=== PATIENT | male | born 1950 | race Caucasian/White ===

== ENCOUNTER 2022-01-14 18:56 | Emergency (ER) | payer MEDICARE, MEDICAID, SELFPAY ==
--- NOTE | ~2022-01-14 | CT_ITS ---
EXAMINATION: CT ABDOMEN AND PELVIS WITH CONTRAST CLINICAL INFORMATION: Generalized abdominal pain. COMPARISON: None TECHNIQUE: Multidetector volumetric images were obtained from the superior aspect of the liver through the pubic symphysis following administration 85 mL of Omnipaque 350 intravenous contrast. Sagittal and coronal reformatted images were obtained on the technologist's workstation. Oral contrast: No This CT examination was performed using dose optimization techniques as appropriate, variously including the following: *Automated exposure control *Adjustment of mA and/or kV according to patient size (this includes techniques or standardized protocols for targeted exams where dose is matched to indication/reason for exam; i.e. extremities or head) *Use of iterative reconstruction technique DLP: 1246 mGy-cm FINDINGS: LUNG BASES: Partial visualization is made of bibasilar posterior dependent peribronchial wall thickening in scattered fine and medium pulmonary reticular opacities. Findings are suspicious for aspiration pneumonitis. LIVER, GALLBLADDER, AND BILIARY TREE: The liver is normal in size, shape, and attenuation. No focal hepatic lesion or biliary ductal dilatation is present. Multiple hyperdense gallstones are present dependently within the gallbladder lumen. No biliary duct dilatation visualized. PANCREAS: Unremarkable. SPLEEN: Unremarkable. ADRENAL GLANDS: Unremarkable. KIDNEYS AND URETERS: A 2 mm diameter rounded calculus is present in the distal right ureter approximately 2 cm proximal to the right ureterovesicular junction. Heart right hydronephrosis and proximal right ureterectasis is present along with mild delayed right nephrogram enhancement and moderate right perinephric inflammatory changes. A 7 mm diameter rounded low-density (7 Hounsfield unit) benign-appearing simple cyst requiring no additional imaging follow-up is present in the inferior pole the right kidney. No additional left urolithiasis is noted bilaterally. No suspicious lesions of the left kidney are identified. BLADDER: No mural contour abnormalities or intraluminal calcifications. GASTROINTESTINAL TRACT: Moderate sigmoid diverticulosis. A cecal bascule is noted. Motion artifact partially obscures visualization of the cecum. The appendix is normal in appearance (series 3 image 49). No intestinal dilatation or mural thickening is noted. No free intraperitoneal fluid or gas collections are visualized. The stomach is normal in appearance. ABDOMINAL WALL: Periumbilical hernia containing omental fat measures 2 cm in diameter. LYMPH NODES: Normal. VASCULAR: Moderate scattered calcific atherosclerosis. PELVIC VISCERA: Normal size of the prostate. Normal appearance of the seminal vesicles. OSSEOUS STRUCTURES: Multilevel mild-moderate intervertebral disc space narrowing and vacuum phenomenon is noted. Dystrophic calcifications are noted in the L4-L5 intervertebral disc. CT/CT abdomen pelvis w IV con IMPRESSION: 1. Single 2 mm obstructing calculus within the distal right ureter approximately 2 cm proximal to the right ureterovesicular junction. Associated moderate right hydronephrosis and proximal right ureterectasis. No additional urolithiasis. 2. Cholelithiasis. 3. Moderate sigmoid diverticulosis. No evidence of acute diverticulitis. 4. Normal appendix. 5. Partial visualization of bibasilar posterior dependent peribronchial wall thickening and reticular opacities suspicious for aspiration pneumonitis.
--- NOTE | ~2022-01-14 | XR_ITS ---
EXAMINATION: XR CHEST CLINICAL INFORMATION: Cough and shortness of breath COMPARISON: 01/14/2022 TECHNIQUE: Frontal view of the chest was obtained. FINDINGS: The heart is mildly enlarged. The lungs are hypoinflated. Some increased reticular nodular markings are seen in both lungs. Atelectasis/infiltrate is present at the left lung base. Some probable pleural calcification is seen at the left apex. XR/XR chest 1V IMPRESSION: Mild cardiomegaly with increased reticular nodular markings. Left basilar atelectasis/infiltrate
[2022-01-14 19:57] VITALS: BP 168/97; PULSE 94; RESP 17; TEMP 36.8; O2SAT 89; BMI 32.3
--- NOTE | 2022-01-14 20:01 | PC.NURSE ---
hx CVA with baseline aphasia
--- NOTE | 2022-01-14 20:14 | PC.NURSE ---
RA saturation 87%, 2l nc applied
[2022-01-14 20:18] LABS: MANUAL DIFF FLAG NO
--- NOTE | 2022-01-14 20:19 | ECG_ITS ---
Test Reason : ABD PAIN Blood Pressure : / mmHG Vent. Rate : 103 BPM Atrial Rate : 103 BPM P-R Int : 176 ms QRS Dur : 078 ms QT Int : 362 ms P-R-T Axes : 046 -05 -01 degrees QTc Int : 474 ms Sinus tachycardia RSR' or QR pattern in V1 suggests right ventricular conduction delay Nonspecific ST abnormality Abnormal ECG No previous ECGs available Referred By: Akhil Kumar Electronically Signed By:ROSALINDA PUGA MD
[2022-01-14 20:24] LABS: Basophils Percent Auto 0.3 % (0-2); Eosinophils Percent Auto 0.4 % (0-4); Hematocrit 51.9 % (42.0-52.0); Hemoglobin 16.5 g/dl (14.0-18.0); Imm Gran Abs Auto 0.03 X10*3/uL (0.00-0.03); Imm Gran Pct Auto 0.4 % (0.0-0.4); Lymphocytes Absolute Auto 0.8 X10*3/uL (1.2-4.9); Lymphocytes Percent Auto 9.5 % (20-40); Mean Corpuscular HGB Conc 31.8 g/dl (31.0-36.0); Mean Corpuscular Hemoglobin 27.1 pg (27.0-33.0); Mean Corpuscular Volume 85.2 fL (80.0-98.0); Mean Platelet Volume 9.9 fL (9.4-12.4); Monocytes Absolute Auto 0.4 X10*3/uL (0.1-1.2); Monocytes Percent Auto 4.4 % (2-11); Neutrophils Absolute Auto 6.7 x10*3/uL (2.0-8.3); Platelet Count 231 X10*3/uL (160-400); Red Blood Count 6.09 X10*6/uL (4.60-5.80); Red Cell Distribution Width 17.7 % (11.0-16.0); White Blood Count 7.9 X10*3/uL (4.8-10.8)
[2022-01-14 20:37] LABS: Alanine Aminotransferase 16 U/L (0-40); Albumin Level 4.7 g/dL (3.5-5.0); Alkaline Phosphatase 167 U/L (39-117); Anion Gap 16 (12-20); Aspartate Amino Transferase 23 U/L (5-37); Bilirubin Total 0.7 mg/dL (0.0-1.0); Blood Urea Nitrogen 13 mg/dL (9-16); Calcium 9.6 mg/dL (8.4-10.2); Carbon Dioxide 29 mmol/L (22-29); Chloride 104 mmol/L (96-108); Creatinine Clr Calc Pharmacy 70.7; Estimated Glomerular Filt Rate > 60; Glucose Random 131 mg/dL (60-115); Lipase 33 U/L (8-78); Potassium 3.6 mmol/L (3.3-5.1); Sodium 145 mmol/L (135-145); Total Protein 8.3 g/dL (6.5-8.0)
--- NOTE | 2022-01-14 21:13 | ED_ITS ---
HPI - Abdominal Pain General Chief Complaint: Abdominal Pain Stated Complaint: nausa R lower quadrant pain Time Seen by Provider: 01/14/22 19:22 Source: EMS, RN notes reviewed and old records reviewed Mode of arrival: EMS History of Present Illness HPI narrative: 71-year-old male presenting from a local [facility] facility with lower abdominal pain and nausea which began several hours ago. Pain is moderate, and has been constant since onset. The patient is unable to provide significant additional history at this time. There are no known exacerbating or relieving factors. MD elicited complaint: abdominal pain Onset (ago): day(s) (1) Pain Consistency: constant Location: suprapubic Severity: moderate Related Data Allergies Allergy/AdvReac Type Severity Reaction Status Date / Time No Known Allergies Allergy Unverified 11/06/19 17:49 [No Known Allergies*] Review of Systems Review of Systems Review of systems is difficult because the patient cannot speak secondary to previous stroke Constitutional: Denies chills, Denies fever(s) and Denies headache(s) Eyes: Denies blurry vision and Denies diplopia Denies headache(s) and Denies sore throat Cardiovascular: Denies rapid heart rate and Denies dyspnea Respiratory: Reports no additional respiratory complaints, Denies cough and Denies dyspnea Gastrointestinal: Reports no additional gastrointestinal complaints, Reports abdominal pain, Denies diarrhea, Denies nausea and Denies vomiting Genitourinary: Denies difficulty urinating Musculoskeletal: Reports no additional musculoskeletal complaints Skin/Breast: Reports system reviewed and no additional complaints, except as docu Reports system reviewed and no additional complaints, except as documented, Denies Abnormal speech present, Denies headache(s) and Denies Sensory deficit (Neuro) Psychiatric: Reports no additional psychiatric complaints PMFSH Past Medical History Source: unable to obtain Social History Social History Advance Directives: No Advance Directives Information Provided: No Physical Exam ED Vital Signs: Vital Signs - 24 hr 01/14/22 19:57 01/14/22 22:00 01/15/22 00:00 Temperature 98.2 F 98.3 F 98.4 F Pulse Rate 94 107 H 116 H Respiratory Rate 17 16 16 Blood Pressure 168/97 H 167/113 H 123/78 Pulse Oximetry 89 L 98 96 Oxygen Delivery Method Nasal Cannula Nasal Cannula Oxygen Flow Rate 2 BMI result Body Mass Index 32.3 Vital signs reviewed and are normal with exception of O2 sat low at 89%. The patient's O2 sat improved with oxygen and then was normal without oxygen. Const General: cooperative, healthy appearing and comfortable HENMT Head: Yes normal to inspection Ears: external ears normal General nose exam: Normal external nose present Face and sinus: Yes normal facial exam Mouth: Normal oral and palatal mucosa present Neck Neck: Yes normal visual inspection and Yes full ROM Resp Effort & Inspection: normal respiratory effort, normal respiratory pattern and no cough Auscultation: clear to auscultation bilaterally Cardio Rate: regular rate Rhythm: regular rhythm GI Inspection: Yes normal to inspection and No distended Palpation (GI): not soft and nontender Back/Spine/Pelvis Cervical Spine: normal cervical lordosis and cervical ROM normal Skin General skin exam: no rashes or lesions noted, no jaundice and no pallor Neuro General: CN's II-XI intact bilaterally Cognition (Neuro): normal cognition Speech: No Abnormal speech present Motor exam (neuro): 5/5 motor strength present throughout Sensory Exam: No Sensory deficit (Neuro) Deep tendon reflexes (DTR's): Rt Biceps (C5, C6): 2+, Left biceps reflex intensity grade: 2+, Right patellar reflex intensity grade: 2+ and Left patellar reflex intensity grade: 2+ Medications Administered Discontinued Medications Generic Name Dose Route Start Last Admin Trade Name Freq PRN Reason Stop Dose Admin Iohexol 100 ml 01/14/22 21:18 01/14/22 21:19 Iohexol 350 Mg/Ml 100 Ml Infus..Btl IV 01/14/22 21:19 85 ml ONCE ONE Administration Ketorolac Tromethamine 15 mg 01/14/22 22:50 01/14/22 23:50 Ketorolac Tromethamine 15 Mg/Ml Vial IM 01/14/22 22:51 15 mg ONCE ONE Administration MDM - Abdominal Pain MDM Narrative Medical decision making narrative: 71-year-old male presents emergency department tonight complaining of right lower quadrant abdominal pain. CT scan revealed a stone as documented below. The patient was re-evaluated over the course of several hours, he did receive IV Toradol in the emergency department. Upon re-evaluation at 1:30 a.m., the patient is comfortable, with no complaints at this time. I did explain to him that he had a kidney stone and that he would be discharged home. The patient is in agreement all questions were answered. Medical Records Attestation: I reviewed the patient's medical records. Lab Data Attestation: I reviewed the patient's lab results. Lab results narrative: Laboratory studies normal including negative COVID. Urinalysis was not obtained Result diagrams: 01/14/22 20:13 01/14/22 20:13 Labs: Lab Results 01/14/22 01/14/22 01/14/22 Range/Units 20:13 20:13 20:13 WBC 7.9 (4.8-10.8) X10*3/uL RBC 6.09 H (4.60-5.80) X10*6/uL Hgb 16.5 (14.0-18.0) g/dl Hct 51.9 (42.0-52.0) % MCV 85.2 (80.0-98.0) fL MCH 27.1 (27.0-33.0) pg MCHC 31.8 (31.0-36.0) g/dl RDW 17.7 H (11.0-16.0) % Plt Count 231 (160-400) X10*3/uL MPV 9.9 (9.4-12.4) fL Immature Gran % (Auto) 0.4 (0.0-0.4) % Neut % (Auto) 85.0 H (45-73) % Lymph % (Auto) 9.5 L (20-40) % [place] % (Auto) 4.4 (2-11) % Eos % (Auto) 0.4 (0-4) % Baso % (Auto) 0.3 (0-2) % Lymph # (Auto) 0.8 L (1.2-4.9) X10*3/uL [place] # (Auto) 0.4 (0.1-1.2) X10*3/uL Eos # (Auto) 0.0 (0.0-0.4) X10*3/uL Baso # (Auto) 0.0 (0.0-0.2) X10*3/uL Abs Immat Gran (auto) 0.03 (0.00-0.03) X10*3/uL Absolute Neuts (auto) 6.7 (2.0-8.3) x10*3/uL Absolute Nucleated RBC 0.000 (0.0-0.012) X10*3/uL Nucleated RBC % (auto) 0.0 (0.0-0.2) /100WBC Sodium 145 (135-145) mmol/L Potassium 3.6 (3.3-5.1) mmol/L Chloride 104 (96-108) mmol/L Carbon Dioxide 29 (22-29) mmol/L Anion Gap 16 (12-20) BUN 13 (9-16) mg/dL Creatinine 1.13 (0.5-1.4) mg/dL Estim Creat Clear Calc 70.7 Estimated GFR > 60 Random Glucose 131 H (60-115) mg/dL Calcium 9.6 (8.4-10.2) mg/dL Total Bilirubin 0.7 (0.0-1.0) mg/dL AST 23 (5-37) U/L ALT 16 (0-40) U/L Alkaline Phosphatase 167 H (39-117) U/L Total Protein 8.3 H (6.5-8.0) g/dL Albumin 4.7 (3.5-5.0) g/dL Lipase 33 (8-78) U/L Influenza Type A (PCR) NEGATIVE (Negative) Influenza Type B (PCR) NEGATIVE (Negative) RSV RNA Qual (PCR) NEGATIVE (Negative) SARS-CoV-2 RNA (RT-PCR) NEGATIVE (Negative) Imaging Data CT scan - abdomen: Radiologist's impression: IMPRESSION: 1.? Single 2 mm obstructing calculus within the distal right ureter approximately 2 cm proximal to the right ureterovesicular junction. Associated moderate right hydronephrosis and proximal right ureterectasis. No additional urolithiasis. 2.? Cholelithiasis. 3.? Moderate sigmoid diverticulosis. No evidence of acute diverticulitis. 4.? Normal appendix. 5.? Partial visualization of bibasilar posterior dependent peribronchial wall thickening and reticular opacities suspicious for aspiration pneumonitis Discharge Plan Discharge Clinical Impression: Calculus of kidney Patient Disposition: Home, Self-Care Instructions: Kidney Stones (ED)
[2022-01-14 21:17] LABS: Influenza A PCR NEGATIVE (Negative); Influenza B PCR NEGATIVE (Negative); Resp Syncy Virus RNA Qual PCR NEGATIVE (Negative); SARS COV2 PCR INHOUSE NEGATIVE (Negative)
[2022-01-14] MEDS: iohexoL 350 MG/ML 100 ML INFUS..BTL IV (21:19)
[2022-01-14 22:00] VITALS: BP 167/113; PULSE 107; RESP 16; TEMP 36.8; O2SAT 98
[2022-01-14] MEDS: Ketorolac Tromethamine 15 MG/ML VIAL IM (23:50)
[2022-01-15] VITALS: BP 123/78; PULSE 116; RESP 16; TEMP 36.9; O2SAT 96
[2022-01-15 02:27] VITALS: BP 126/95; PULSE 102; RESP 16; TEMP 36.6; O2SAT 95
--- NOTE | 2022-01-15 02:35 | PC.NURSE ---
Patient is provided with discharge paperwork and instruction, including education about kidney stones. EMS booked to bring patient back to SNF. Awaiting transport back to facility.
--- NOTE | 2022-01-15 02:55 | PC.NURSE ---
Nuha called at 0240 for a Bls transfer back to [facility] spoke with Flaca she is sending a truck to transport patient ETA within the hour.Rn aware
== END 2022-01-15 03:36 | disposition home or self-care (01) ==
PROVIDERS: Emergency Provider Emergency Medicine; PCP Family Medicine
DX: N13.2 Hydronephrosis with renal and ureteral calculous obstruction (principal); R10.31 Right lower quadrant pain; K80.20 Calculus of gallbladder without cholecystitis without obstruction; K57.30 Diverticulosis of large intestine without perforation or abscess without bleeding; Z20.822 Contact with and (suspected) exposure to COVID-19
CPT/HCPCS: 0241U; 36415; 71045; 74177; 80053; 83690; 85025; 93005; 96372; 99284; J1885; Q9967

== ENCOUNTER 2022-03-17 12:06 | Emergency (ER) | payer MEDICARE, MEDICAID, SELFPAY ==
--- NOTE | ~2022-03-17 | CT_ITS ---
EXAMINATION: CT ABDOMEN AND PELVIS WITHOUT CONTRAST CLINICAL INFORMATION: Pain of left lower quadrant. COMPARISON: None TECHNIQUE: Multidetector volumetric imaging was performed from the superior aspect of the liver through the pubic symphysis. Sagittal and coronal reformatted images were obtained on the technologist's workstation. This CT examination was performed using dose optimization techniques as appropriate, variously including the following: *Automated exposure control *Adjustment of mA and/or kV according to patient size (this includes techniques or standardized protocols for targeted exams where dose is matched to indication/reason for exam; i.e. extremities or head) *Use of iterative reconstruction technique DLP: 835 mGy-cm FINDINGS: LUNG BASES: Again observed is chronic thickening of bronchial morales and reticular and mild groundglass opacities of the visualized lower lobes. No pleural effusion. LIVER: Diffuse hepatic steatosis. GALLBLADDER AND BILIARY TREE: Gallbladder has multiple small calcified stones. No gallbladder wall thickening or pericholecystic fluid. No dilated bile ducts. PANCREAS: No edema, pancreatic ductal dilatation or mass. SPLEEN: Normal. ADRENAL GLANDS: Normal. KIDNEYS AND URETERS: Kidneys are normal in size. 0.2 cm calyceal stone of the upper pole of the left kidney. No hydronephrosis. 1.2 cm simple cortical cyst of the posterior lower pole of the right kidney is unchanged. No renal imaging follow-up is recommended for simple cysts. The ureters are unremarkable. BLADDER: Normal. No calculi or wall thickening. BOWEL AND PERITONEUM: There are a few metallic clips along the anterior wall of the gastric body. No dilated bowel loops. The appendix is normal. There are diverticula of the sigmoid colon without evidence of diverticulitis. No evidence of bowel wall thickening, mesenteric fat stranding or free fluid. No pneumoperitoneum. ABDOMINAL WALL: Chronic diastases of rectus abdominis muscles and small fat-containing umbilical hernia. VASCULATURE: Atherosclerotic calcification of the abdominal aorta and iliac arteries without aneurysm. LYMPH NODES: No pathologic sized lymph nodes in the abdomen or pelvis. No inguinal lymphadenopathy. PELVIC VISCERA: Prostate gland is unremarkable. No pelvic free fluid. MUSCULOSKELETAL: Chronic partial osseous fusion between L3 and L4 vertebral bodies. No acute abnormalities in the degenerated lumbar spine. Bones appear to be diffusely osteoporotic. 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 Chronic atrophy, partial fatty replacement of paraspinal, gluteus and thigh muscles. CT/CT abdomen pelvis wo IV con IMPRESSION: * No specific source of left lower quadrant pain is identified. No acute inflammatory change or obstruction along the gastrointestinal tract. Diverticula of the sigmoid colon without diverticulitis. * Cholelithiasis without cholecystitis. * Diffuse hepatic steatosis. * Chronic symmetric ankylosis of sacroiliac joints. Correlate for any history of HLA B27 associated spondyloarthropathy * There are redemonstrated findings of bronchial wall thickening and hazy, reticular opacities in lower lobes. Findings could be a manifestation of bronchitis, pneumonitis, possible aspiration.
--- NOTE | ~2022-03-17 | US_ITS ---
EXAMINATION: US ABDOMEN LIMITED CLINICAL INFORMATION: Right upper quadrant pain.. COMPARISON: CT scan abdomen pelvis 03/17/2022 TECHNIQUE: Real-time imaging of the right upper quadrant abdominal viscera. Color Doppler exam was used. FINDINGS: PANCREAS: Obscured by bowel gas LIVER: Mild increased echogenicity of the liver parenchyma suggesting fatty change. The liver is normal in size. The liver contour is normal. No focal hepatic lesion. There is no intrahepatic biliary duct dilatation seen. GALLBLADDER: Small gallstones within the gallbladder. No gallbladder wall thickening or pericholecystic fluid. Negative ultrasound Driscoll's sign. COMMON BILE DUCT: Normal in caliber measuring 0.3 cm in diameter. RIGHT KIDNEY: Normal. No hydronephrosis. No renal calculi or focal parenchymal lesions. The kidney measures 8.9 cm in maximum dimension. FREE FLUID: None. US/US abdomen limited IMPRESSION: Cholelithiasis. No acute change of gallbladder wall. No bile duct dilatation.
--- NOTE | ~2022-03-17 | CT_ITS ---
EXAMINATION: CT ANGIOGRAM OF THE CHEST WITH AND WITHOUT CONTRAST (CT PULMONARY ANGIOGRAM FOR PE) CLINICAL INFORMATION: Reason for Exam hypoxia tachycardia COMPARISON: None TECHNIQUE: Prior to contrast administration, noncontrast localization images were obtained. Subsequently, multidetector volumetric imaging was performed from the thoracic inlet to below the diaphragms following the administration of 65 mL Omnipaque 350 intravenous contrast. No contrast reaction reported Sagittal, coronal, and MIP oblique sagittal reformatted images were obtained on the CT workstation, uploaded to PACS, and reviewed. This CT examination was performed using dose optimization techniques as appropriate, variously including the following: *Automated exposure control *Adjustment of mA and/or kV according to patient size (this includes techniques or standardized protocols for targeted exams where dose is matched to indication/reason for exam; i.e. extremities or head) *Use of iterative reconstruction technique Total exam dose-length product 448 mGy-cm FINDINGS: QUALITY OF STUDY/CONTRAST BOLUS: Suboptimal. PULMONARY ARTERIES: No central pulmonary embolus. Assessment is largely nondiagnostic for laboratory detecting segmental pulmonary emboli rarely due to extensive respiratory motion artifact. THORACIC AORTA: There is a approximately 1.6 x 1.4 cm contrast filled outpouching projecting inferiorly from the proximal descending thoracic aorta in the region of the ductus arteriosus consistent with a small focal aneurysm presumably secondary to ulcerative plaque. No surrounding inflammatory change. Thoracic aorta is otherwise normal in caliber with mild calcifications. LUNG: Prominent respiratory motion artifact. Mild hazy opacities in the dependent lower lobes and lingula left greater than right, nonspecific and similar to earlier CT abdomen pelvis. No suspicious appearing pulmonary nodule/mass identified For motion artifact. There does appear to be a small calcified granuloma in the right lower lobe. Central airways appear patent. Small amount of foamy secretions or aspirated debris in the lower trachea and proximal mainstem bronchi. PLEURA: No pleural effusion or pneumothorax. MEDIASTINUM: No cardiomegaly or pericardial effusion. Enlarged right hilar lymph node measuring 3 x 1.4 cm in size. Mildly enlarged subcarinal lymph nodes measuring 1 cm in short axis dimension. Multiple additional prominent subcentimeter short axis dimension mediastinal and left hilar lymph nodes. No evidence of septal bowing or right heart strain. CORONARY ARTERY CALCIFICATION: Present focally involving the LAD. CHEST WALL/AXILLA: No axillary or internal mammary lymphadenopathy. OSSEOUS STRUCTURES: No acute fracture or suspicious osseous lesion. Mild thoracic spondylosis. UPPER ABDOMEN: Mild hepatic hypoattenuation suggesting mild steatosis. Calcified dependent gallstones layering in the gallbladder. Couple surgical clips in the body the stomach. Visualized upper abdominal viscera otherwise unremarkable. No reflux of contrast into the hepatic veins to suggest elevated right heart pressures. CT/CT angio chest PE protocol IMPRESSION: 1. No central pulmonary embolus. Assessment for reliably detecting segmental pulmonary emboli is essentially nondiagnostic on this study due to extensive respiratory motion artifact. 2. 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 3. Mild dependent groundglass opacities in the lung bases left more so than right. Findings may represent some combination of atelectasis or pneumonitis. No airspace consolidation or effusions. 4. Mild mediastinal and right hilar lymphadenopathy, etiology uncertain. Cannot entirely exclude metastasis from an known primary or lymphoproliferative process. 5. Additional findings as described. VTE: indeterminate
[2022-03-17 12:15] VITALS: BP 126/60; BP 133/85; PULSE 108; PULSE 109; RESP 16; TEMP 37.7; O2SAT 93; O2SAT 94; BMI 31.5
[2022-03-17 14:08] LABS: MANUAL DIFF FLAG NO
[2022-03-17 14:09] LABS: Basophils Percent Auto 0.4 % (0-2); Eosinophils Absolute Auto 0.1 X10*3/uL (0.0-0.4); Eosinophils Percent Auto 2.3 % (0-4); Hematocrit 43.5 % (42.0-52.0); Hemoglobin 13.8 g/dl (14.0-18.0); Imm Gran Abs Auto 0.01 X10*3/uL (0.00-0.03); Imm Gran Pct Auto 0.2 % (0.0-0.4); Lymphocytes Absolute Auto 0.6 X10*3/uL (1.2-4.9); Lymphocytes Percent Auto 13.1 % (20-40); Mean Corpuscular HGB Conc 31.7 g/dl (31.0-36.0); Mean Corpuscular Hemoglobin 27.5 pg (27.0-33.0); Mean Corpuscular Volume 86.7 fL (80.0-98.0); Mean Platelet Volume 9.8 fL (9.4-12.4); Monocytes Absolute Auto 0.4 X10*3/uL (0.1-1.2); Monocytes Percent Auto 7.4 % (2-11); Neutrophils Absolute Auto 3.6 x10*3/uL (2.0-8.3); Neutrophils Percent Auto 76.6 % (45-73); Platelet Count 187 X10*3/uL (160-400); Red Blood Count 5.02 X10*6/uL (4.60-5.80); Red Cell Distribution Width 17.8 % (11.0-16.0); White Blood Count 4.7 X10*3/uL (4.8-10.8)
--- NOTE | 2022-03-17 14:16 | ED.ABDPAIN ---
HPI - Abdominal Pain General Chief Complaint: Abdominal Pain Stated Complaint: Low abd pain per EMS Time Seen by Provider: 03/17/22 12:09 Source: patient and EMS Mode of arrival: EMS History of Present Illness HPI narrative: 72-year-old male with prior CVA is brought in by EMS from the facility with reported complaints of lower abdominal pain since last night and has a history of kidney stones. Patient is primarily nonverbal but understands all questions and denies any shortness of breath or chest pain, denies any nausea/vomiting. Related Data Allergies Allergy/AdvReac Type Severity Reaction Status Date / Time No Known Allergies Allergy Unverified 11/06/19 17:49 [No Known Allergies*] Review of Systems Review of Systems Pertinent positives and negatives as stated in HPI PMFSH Past Medical History Source: nursing notes reviewed Social History Social History Smoked in Last 30 Days: No Use of substances other than those prescribed or required for medical reasons: No Advance Directives: Yes Advance Directives on File: Yes Advance Directives Date on File: 01/16/22 Physical Exam ED Vital Signs: Vital Signs - 24 hr 03/17/22 12:15 03/17/22 14:30 03/17/22 17:52 Temperature 99.9 F 99.7 F 99.9 F Pulse Rate 109 H 104 H 111 H Respiratory Rate 16 23 H 16 Blood Pressure 133/85 147/92 H 148/93 H Pulse Oximetry 94 92 91 L Oxygen Delivery Method Room Air Room Air BMI result Body Mass Index 31.5 VITAL SIGNS: Reviewed. GENERAL: Chronically ill, contracted, in no acute distress. HEAD: Normocephalic/atraumatic EYES: PERRLA, EOMI EARS: Ext canals without abnormality OROPHARYNX: no oral lesions noted, posterior pharynx clear LUNGS: Decreased bibasilar without tachypnea. No adventitious sounds or accessory muscle use. SpO2<92> CARDIOVASCULAR: Regular rate and rhythm without noted murmurs, no JVD or lower extremity edema. ABDOMEN: Soft, tenderness noted in lower abdomen, non-distended with bowel sounds. MUSCULOSKELETAL: No tenderness, deformities, or effusions noted on gross inspection. EXTREMITIES: No cyanosis, clubbing or edema. SKIN: Inspection of the skin reveals no rashes NEUROLOGIC: Alert and otherwise residual deficits consistent with underlying CVA, contractions of lower extremity and right upper extremity Medical Decision Making Medical Decision Making [facility] Narrative: 72-year-old male who presents and will rule out intra-abdominal or urinary problems. On review of all investigations there is no evidence to suggest acute infection, anemia, obstruction, diverticulitis, cholecystitis. 1844: Nursing documented an oxygenation of 91% and patient remains tachycardic, there is not a clear etiology as patient denies any shortness of breath. On re-evaluation patient has a low-grade fever and will proceed with CT of the chest, right upper quadrant ultrasound as this is the imaging study to best identify cholecystitis as patient still with complaint of abdominal discomfort, will give patient 1 L of IV fluids and placed on supplemental oxygen. US RUQ CT angio Chest Nasal Cannula SARS/COVID/RSV/Influenz Differential Diagnosis Differential Diagnoses: The differential diagnosis associated with the presentation includes Please see the discussion above Lab Data [facility] Lab Attestation statement: I reviewed the patient's lab results. Please see the discussion above 03/17/22 14:03 03/17/22 14:03 Labs: Lab Results 03/17/22 03/17/22 03/17/22 Range/Units 14:01 14:03 14:03 WBC 4.7 L (4.8-10.8) X10*3/uL RBC 5.02 (4.60-5.80) X10*6/uL Hgb 13.8 L (14.0-18.0) g/dl Hct 43.5 (42.0-52.0) % MCV 86.7 (80.0-98.0) fL MCH 27.5 (27.0-33.0) pg MCHC 31.7 (31.0-36.0) g/dl RDW 17.8 H (11.0-16.0) % Plt Count 187 (160-400) X10*3/uL MPV 9.8 (9.4-12.4) fL Immature Gran % (Auto) 0.2 (0.0-0.4) % Neut % (Auto) 76.6 H (45-73) % Lymph % (Auto) 13.1 L (20-40) % [place] % (Auto) 7.4 (2-11) % Eos % (Auto) 2.3 (0-4) % Baso % (Auto) 0.4 (0-2) % Lymph # (Auto) 0.6 L (1.2-4.9) X10*3/uL [place] # (Auto) 0.4 (0.1-1.2) X10*3/uL Eos # (Auto) 0.1 (0.0-0.4) X10*3/uL Baso # (Auto) 0.0 (0.0-0.2) X10*3/uL Abs Immat Gran (auto) 0.01 (0.00-0.03) X10*3/uL Absolute Neuts (auto) 3.6 (2.0-8.3) x10*3/uL Absolute Nucleated RBC 0.000 (0.0-0.012) X10*3/uL Nucleated RBC % (auto) 0.0 (0.0-0.2) /100WBC PT (10.0-13.1) SEC INR (0.9-1.1) Sodium 140 (135-145) mmol/L Potassium 3.9 (3.3-5.1) mmol/L Chloride 103 (96-108) mmol/L Carbon Dioxide 28 (22-29) mmol/L Anion Gap 13 (12-20) BUN 9 (9-16) mg/dL Creatinine 0.92 (0.5-1.4) mg/dL Estim Creat Clear Calc 72.1 Estimated GFR > 60 Random Glucose 106 (60-115) mg/dL Calcium 8.8 D (8.4-10.2) mg/dL Total Bilirubin 1.0 (0.0-1.0) mg/dL AST 18 (5-37) U/L ALT 11 (0-40) U/L Alkaline Phosphatase 132 H (39-117) U/L Total Protein 6.8 (6.5-8.0) g/dL Albumin 3.8 (3.5-5.0) g/dL Urine Color Urine Appearance Urine pH (5.0-9.0) Ur Specific [place] (1.005-1.025) Urine Protein (Neg-Trace) mg/dL Urine Glucose (UA) (Negative) mg/dL Urine Ketones (Negative) mg/dL Urine Blood (Negative) Urine Nitrite (Negative) Ur Leukocyte Esterase (Negative) COVID-19 ([facility]) Negative (Negative) COVID-19 Clin Com See Note 03/17/22 03/17/22 Range/Units 14:03 17:38 WBC (4.8-10.8) X10*3/uL RBC (4.60-5.80) X10*6/uL Hgb (14.0-18.0) g/dl Hct (42.0-52.0) % MCV (80.0-98.0) fL MCH (27.0-33.0) pg MCHC (31.0-36.0) g/dl RDW (11.0-16.0) % Plt Count (160-400) X10*3/uL MPV (9.4-12.4) fL Immature Gran % (Auto) (0.0-0.4) % Neut % (Auto) (45-73) % Lymph % (Auto) (20-40) % [place] % (Auto) (2-11) % Eos % (Auto) (0-4) % Baso % (Auto) (0-2) % Lymph # (Auto) (1.2-4.9) X10*3/uL [place] # (Auto) (0.1-1.2) X10*3/uL Eos # (Auto) (0.0-0.4) X10*3/uL Baso # (Auto) (0.0-0.2) X10*3/uL Abs Immat Gran (auto) (0.00-0.03) X10*3/uL Absolute Neuts (auto) (2.0-8.3) x10*3/uL Absolute Nucleated RBC (0.0-0.012) X10*3/uL Nucleated RBC % (auto) (0.0-0.2) /100WBC PT 13.5 H (10.0-13.1) SEC INR 1.2 H (0.9-1.1) Sodium (135-145) mmol/L Potassium (3.3-5.1) mmol/L Chloride (96-108) mmol/L Carbon Dioxide (22-29) mmol/L Anion Gap (12-20) BUN (9-16) mg/dL Creatinine (0.5-1.4) mg/dL Estim Creat Clear Calc Estimated GFR Random Glucose (60-115) mg/dL Calcium (8.4-10.2) mg/dL Total Bilirubin (0.0-1.0) mg/dL AST (5-37) U/L ALT (0-40) U/L Alkaline Phosphatase (39-117) U/L Total Protein (6.5-8.0) g/dL Albumin (3.5-5.0) g/dL Urine Color Yellow Urine Appearance Clear Urine pH 8.5 (5.0-9.0) Ur Specific [place] 1.015 (1.005-1.025) Urine Protein Negative (Neg-Trace) mg/dL Urine Glucose (UA) Negative (Negative) mg/dL Urine Ketones Trace (Negative) mg/dL Urine Blood Negative (Negative) Urine Nitrite Negative (Negative) Ur Leukocyte Esterase Negative (Negative) COVID-19 ([facility]) (Negative) COVID-19 Clin Com Radiology Impression Radiologist Impression: My interpretation is in agreement with radiology's impression of the imaging study. External Record Review External record reviewed: Outpatient record and Prior outpatient labs Chronic Conditions Prior CVA Critical Care Time Critical Care Time Critical Care Time: Yes Total Critical Care Time: 45 Attestation: I personally attest to this time spent taking care of the patient. Discharge Plan Discharge Clinical Impression: Abdominal pain, Hypoxia Patient Disposition: Still a Patient
[2022-03-17 14:22] LABS: COVID-19 Test Negative (Negative); IDNOW Serial# BCCEAD1C
[2022-03-17 14:26] LABS: INTERNATIONAL NORM RATIO 1.2 (0.9-1.1); Prothrombin Time 13.5 SEC (10.0-13.1)
[2022-03-17 14:30] VITALS: BP 147/92; PULSE 104; RESP 23; TEMP 37.6; O2SAT 92
[2022-03-17 14:39] LABS: Alanine Aminotransferase 11 U/L (0-40); Albumin Level 3.8 g/dL (3.5-5.0); Alkaline Phosphatase 132 U/L (39-117); Anion Gap 13 (12-20); Aspartate Amino Transferase 18 U/L (5-37); Blood Urea Nitrogen 9 mg/dL (9-16); Calcium 8.8 mg/dL (8.4-10.2); Carbon Dioxide 28 mmol/L (22-29); Chloride 103 mmol/L (96-108); Creatinine Clr Calc Pharmacy 72.1; Estimated Glomerular Filt Rate > 60; Glucose Random 106 mg/dL (60-115); Potassium 3.9 mmol/L (3.3-5.1); Sodium 140 mmol/L (135-145); Total Protein 6.8 g/dL (6.5-8.0)
--- NOTE | 2022-03-17 17:13 | PC.NURSE ---
pt is unable to urinate to get a urine sample after urinal placed by this RN. offered a pitcher of water and he isn t really interested in drinking much.
[2022-03-17 17:52] VITALS: BP 148/93; PULSE 111; RESP 16; TEMP 37.7; O2SAT 91
[2022-03-17 17:52] LABS: Appearance Urine Clear; Color Urine Yellow; Glucose Urine UA Negative (Negative); Leukocyte Esterase Urine Negative (Negative); Nitrite Urine Negative (Negative); PH 8.5 (5.0-9.0); Specific Gravity - Urine 1.015 (1.005-1.025); Urine Blood Negative (Negative); Urine Ketones Trace mg/dL (Negative); Urine Protein Negative (Neg-Trace)
[2022-03-17] MEDS: 0.9 % Sodium Chloride 1,000 ML 999 ML IV (19:12)
--- NOTE | 2022-03-17 19:15 | PC.NURSE ---
This sql report writer asumed care of this PT at 1900. PT able to understand answer yes or no questions. Denies any pain. IV line established. Blood work drawn and sent to lab.
[2022-03-17 19:25] VITALS: BP 150/93; PULSE 108; RESP 18; TEMP 36.8; O2SAT 92
[2022-03-17 19:58] LABS: Influenza A PCR NEGATIVE (Negative); Influenza B PCR NEGATIVE (Negative); Resp Syncy Virus RNA Qual PCR NEGATIVE (Negative); SARS COV2 PCR INHOUSE NEGATIVE (Negative)
[2022-03-17 20:23] LABS: Lactic Acid 0.9 mmol/L (0.5-2.0)
[2022-03-17 22:00] VITALS: BP 148/96; PULSE 115; RESP 20; TEMP 36.6; O2SAT 93
--- NOTE | 2022-03-17 22:31 | PC.NURSE ---
FL to RN report given to Patrice at [facility]. PT updated on D/C plan.
== END 2022-03-17 23:01 | disposition home or self-care (01) ==
PROVIDERS: Nurse Practitioner Family; Student in an Organized Health Care Education/Training Program; Emergency Provider Emergency Medicine; PCP Family Medicine
DX: R10.30 Lower abdominal pain, unspecified (principal); R09.02 Hypoxemia; R50.9 Fever, unspecified; R00.0 Tachycardia, unspecified; Z20.822 Contact with and (suspected) exposure to COVID-19; Z20.828 Contact with and (suspected) exposure to other viral communicable diseases; Z87.442 Personal history of urinary calculi; Z86.73 Personal history of transient ischemic attack (TIA), and cerebral infarction without residual deficits
CPT/HCPCS: 0241U; 36415; 51798; 71275; 74176; 76705; 80053; 81003; 83605; 85025; 85610; 87040; 87635; 96360; 99284

== ENCOUNTER 2022-04-07 21:10 | Inpatient (IN) | payer MEDICARE, MEDICAID, SELFPAY ==
--- NOTE | ~2022-04-07 | CT_ITS ---
EXAMINATION: CT HEAD WITHOUT CONTRAST CLINICAL INFORMATION: Altered mental status COMPARISON: 07/14/2017 TECHNIQUE: Contiguous axial imaging was performed from the skull base to vertex without intravenous contrast. This CT examination was performed using dose optimization techniques as appropriate, variously including the following: * Automated exposure control * Adjustment of mA and/or kV according to patient size (this includes techniques or standardized protocols for targeted exams where dose is matched to indication/reason for exam; i.e. extremities or head) Use of iterative reconstruction technique DLP: 606 mGy-cm. FINDINGS: There is no evidence of acute intracranial hemorrhage or territorial infarction. No abnormal mass effect or midline shift is seen. Couch to white matter differentiation is well preserved. No extra-axial fluid collections are identified. No hydrocephalus. Proportional prominence of the ventricles and sulcal spaces is consistent with mild volume loss. Patchy periventricular and deep white matter hypoattenuation is consistent with mild small vessel ischemic changes. Chronic left frontoparietal region infarct with ex vacuo dilatation of the atrium of the left lateral ventricle. The osseous structures and soft tissues are normal. The mastoid air cells and visualized portions of the paranasal sinuses are well aerated. CT/CT head/brain wo IV con IMPRESSION: No acute intracranial pathology. Chronic volume loss with small vessel ischemic change.
--- NOTE | ~2022-04-07 | XR_ITS ---
EXAMINATION: XR CHEST CLINICAL INFORMATION: Altered mental status. COMPARISON: None TECHNIQUE: Frontal view of the chest was obtained. FINDINGS: Lungs are well expanded. Cardiac leads overlie the chest. No consolidation, edema, or effusion. No pneumothorax. The cardiomediastinal silhouette is unchanged, with a tortuous aorta. XR/XR chest 1V IMPRESSION: No acute pulmonary disease.
--- NOTE | ~2022-04-07 | US_ITS ---
EXAMINATION: US SCROTUM CLINICAL INFORMATION: Lump. COMPARISON: CT abdomen and pelvis February 2022 TECHNIQUE: A sonogram of the scrotum was performed assessing cornejo-scale appearance and color Doppler flow. Spectral Doppler analysis of the arterial and venous flow were performed in the testes bilaterally. Exam is limited. FINDINGS: RIGHT: Right testicle measures 2.8 x 2.1 x 2.3 cm, volume 7 mL. No focal testicular parenchymal lesions are visualized. Spectral Doppler analysis of the arterial and venous flow is normal in the right testis. Right epididymal head is normal in size. No right hydrocele or varicocele is seen. Right epididymal Doppler flow is normal. Palpable abnormality appears to correspond to echogenic area with acoustic shadowing superior to the right scrotum and just deep to the skin. This area measures 1.1 x 0.8 x 1.6 cm in dimension. LEFT: Left testicle measures 3.2 x 1.8 x 2.1 cm, volume 6 mL. No focal testicular parenchymal lesions are visualized. Spectral Doppler analysis of the arterial and venous flow is normal in the left testis. Left epididymal head is normal in size. No left hydrocele or varicocele is seen. Left epididymal Doppler flow is normal. US/US scrotum IMPRESSION: Limited exam. No testicular or scrotal abnormality seen. Palpable abnormality appears to correspond to an echogenic area with acoustic shadowing superior to the right scrotum and just deep to the skin measuring 1.1 x 0.8 x 1.6 cm.
--- NOTE | 2022-04-07 21:26 | ECG_ITS ---
Test Reason : nonresponsive Blood Pressure : / mmHG Vent. Rate : 080 BPM Atrial Rate : 080 BPM P-R Int : 158 ms QRS Dur : 072 ms QT Int : 392 ms P-R-T Axes : 052 017 016 degrees QTc Int : 452 ms Normal sinus rhythm Normal ECG When compared with ECG of 14-JAN-2022 21:27, No significant changes seen Referred By: Elmira Negrete Electronically Signed By:Adam Feldman
[2022-04-07 21:28] VITALS: BP 104/72; BP 80/50; PULSE 80; PULSE 90; RESP 12; TEMP 36.6; O2SAT 94; O2SAT 99; BMI 23.2
--- NOTE | 2022-04-07 21:40 | ED_ITS ---
HPI - Altered Mental Status General Chief Complaint: General Medical Stated Complaint: unresponsive Time Seen by Provider: 04/07/22 21:18 Source: EMS Mode of arrival: EMS Limitations: altered mental status History of Present Illness HPI narrative: Patient comes to the emergency room from a longterm. According to EMS, patient was found ?unresponsive? prior to EMS being called. EMS reports that the nursing facility staff did not provide any further information other than the last time that patient was seen at baseline was approximately 17:00 around dinner time. Patient is awake but is not providing any answers, patient completely lethargic. Reviewing patient's notes, seems that patient's baseline is primarily nonverbal but is able to understand questions and answer yes/no. Today, patient is unable to do so. Patient's nurse called the nursing facility, they report that earlier today, at 06:00, approximately 16 hours ago, patient had a fall. This was unwitnessed, when they checked the patient he had no visible injuries, patient was at baseline. Patient takes Plavix daily. Related Data Allergies Allergy/AdvReac Type Severity Reaction Status Date / Time No Known Allergies Allergy Unverified 11/06/19 17:49 [No Known Allergies*] Review of Systems Review of Systems: Yes Unobtainable due to mental condition PMFSH Past Medical History Medical History CVA (cerebral vascular accident) Social History Social History Advance Directives: Yes Advance Directives on File: Yes Advance Directives Date on File: 01/16/22 Physical Exam ED Vital Signs: Vital Signs - 24 hr 04/07/22 21:28 04/07/22 23:02 04/07/22 23:22 Temperature 97.9 F 97.9 F Pulse Rate 80 69 69 Respiratory Rate 12 8 L 12 Blood Pressure 104/72 87/56 L 89/56 L Pulse Oximetry 99 99 100 Oxygen Delivery Method Nasal Cannula Nasal Cannula Nasal Cannula Oxygen Flow Rate 6 6 04/07/22 23:44 Temperature Pulse Rate 68 Respiratory Rate 10 L Blood Pressure 92/57 L Pulse Oximetry 100 Oxygen Delivery Method Nasal Cannula Oxygen Flow Rate 5 BMI result Body Mass Index 23.2 Const Other: Appearance: Alert. Very lethargic, easily arousable, only opens eyes, nonverbal at baseline per previous notes Eyes: Pupils equal, round and reactive to light. ENT: Dry oral mucosa, poor dentition, patient has dental implants which eroded through the gum Neck: Normal inspection. Neck supple. No lymph nodes noted. No crepitus CVS: Normal heart rate and rhythm. Pulses normal. Normal S1 and S2 Respiratory: No respiratory distress. Breath sounds normal. No Wheezing. No rales Abdomen: Soft and nontender. No rigidity. No distention. Skin: Skin dry and cool to touch, rectal temperature 97.9 degrees Extremities: No lower extremity edema. No Lacerations. No Rash Neuro: Unable to participating cranial nerve assessment Psych: calm, lethargic Course Course Course Narrative: -all of patient's labs are pending. At this time, vital stable, no fever or hypothermia, blood pressure 104/72, heart rate 80, respirations 12, oxygen saturation 99% on room air -22:54, patient's white blood cell count within normal limits, no fever or chills, lactic acid is 2.5 likely secondary to dehydration. Vitals remained stable. -chest x-ray is negative for any acute findings. The urinalysis is still pending. However, I was informed by the patient's nurse that when they straight cath the patient, the urine looked like pus and chunky . At this time, I will start empiric treatment with ceftriaxone, UA results pending Medications Administered Discontinued Medications Generic Name Dose Route Start Last Admin Trade Name Freq PRN Reason Stop Dose Admin Sodium Chloride 2,000 mls @ 999 mls/hr 04/07/22 21:25 04/07/22 23:44 Ns IVCONT 04/07/22 23:25 Infused .Q2H1M ONE Infusion Ceftriaxone Sodium 1 gm/ 50 mls @ 100 mls/hr 04/07/22 22:53 04/07/22 23:50 Sodium Chloride IV 04/07/22 23:22 Infused ONCE ONE Infusion Medical Decision Making Medical Decision Making [facility] Narrative: Patient has a urinary tract infection, patient's blood pressure is becoming softer. No episodes of hypotension. Patient being giving more fluids. Patient already received antibiotics. -patient receiving p.o. potassium for hypokalemia. -I discussed the patient with Dr. Hinkle, patient being admitted Differential Diagnosis Differential Diagnoses: The differential diagnosis associated with the presentation includes (UTI, pneumonia, CVA) Admission/Observation Consideration of admission/observation: Escalation of care including admission/observation considered Consult Healthcare Provider Management of the patient was discussed with: Hospitalist Lab Data MDM Lab Attestation statement: I reviewed the patient's lab results. 04/07/22 21:45 04/07/22 21:45 Labs: Lab Results 04/07/22 04/07/22 04/07/22 Range/Units 21:45 21:45 21:45 WBC 6.9 (4.8-10.8) X10*3/uL RBC 4.45 L (4.60-5.80) X10*6/uL Hgb 12.5 L (14.0-18.0) g/dl Hct 39.1 L (42.0-52.0) % MCV 87.9 (80.0-98.0) fL MCH 28.1 (27.0-33.0) pg MCHC 32.0 (31.0-36.0) g/dl RDW 17.6 H (11.0-16.0) % Plt Count 237 D (160-400) X10*3/uL MPV 10.1 (9.4-12.4) fL Immature Gran % (Auto) 0.1 (0.0-0.4) % Neut % (Auto) 72.0 (45-73) % Lymph % (Auto) 19.1 L (20-40) % [place] % (Auto) 7.5 (2-11) % Eos % (Auto) 0.9 (0-4) % Baso % (Auto) 0.4 (0-2) % Lymph # (Auto) 1.3 (1.2-4.9) X10*3/uL [place] # (Auto) 0.5 (0.1-1.2) X10*3/uL Eos # (Auto) 0.1 (0.0-0.4) X10*3/uL Baso # (Auto) 0.0 (0.0-0.2) X10*3/uL Abs Immat Gran (auto) 0.01 (0.00-0.03) X10*3/uL Absolute Neuts (auto) 5.0 (2.0-8.3) x10*3/uL Absolute Nucleated RBC 0.000 (0.0-0.012) X10*3/uL Nucleated RBC % (auto) 0.0 (0.0-0.2) /100WBC PT (10.0-13.1) SEC INR (0.9-1.1) VBG pH (7.32-7.43) VBG pCO2 mmHg VBG pO2 mmHg VBG HCO3 (22-26) mmol/L VBG O2 Saturation % VBG Base Excess mmol/L Sodium 143 (135-145) mmol/L Potassium 3.1 L D (3.3-5.1) mmol/L Chloride 106 (96-108) mmol/L Carbon Dioxide 26 (22-29) mmol/L Anion Gap 14 (12-20) BUN 12 (9-16) mg/dL Creatinine 1.42 H (0.5-1.4) mg/dL Estim Creat Clear Calc 50.8 Estimated GFR 49 Random Glucose 137 H (60-115) mg/dL Lactic Acid 2.5 H* (0.5-2.0) mmol/L Calcium 8.6 (8.4-10.2) mg/dL Magnesium 1.9 (1.6-2.6) mg/dL Total Bilirubin 1.3 H (0.0-1.0) mg/dL Direct Bilirubin 0.4 (0.0-0.5) mg/dL AST 11 (5-37) U/L ALT < 6 (0-40) U/L Alkaline Phosphatase 107 (39-117) U/L Troponin I High Sens (<3.5-35.0) ng/L B-Natriuretic Peptide (<100) pg/mL Total Protein 6.4 L (6.5-8.0) g/dL Albumin 3.4 L (3.5-5.0) g/dL Lipase 64 (8-78) U/L TSH (0.32-4.0) uIU/mL Urine Color Urine Appearance Urine pH (5.0-9.0) Ur Specific [place] (1.005-1.025) Urine Protein (Neg-Trace) mg/dL Urine Glucose (UA) (Negative) mg/dL Urine Ketones (Negative) mg/dL Urine Blood (Negative) Urine Nitrite (Negative) Ur Leukocyte Esterase (Negative) Urine RBC (0-2) /HPF Urine WBC (0-5) /HPF Ur Squamous Epith Cells (0-2) /HPF Urine Bacteria (None Seen) Hyaline Casts (0-2) /LPF Urine Opiates Screen (Not Detect) Urine Fentanyl Screen (Not Detect) Ur Barbiturates Screen (Not Detect) Ur Phencyclidine Scrn (Not Detect) Ur Amphetamines Screen (Not Detect) U Benzodiazepines Scrn (Not Detect) Urine Cocaine Screen (Not Detect) U Marijuana (THC) Screen (Not Detect) COVID-19 ([facility]REST) (Negative) COVID-19 Clin Com Influenza Type A (BEATRIZ) (Negative) Influenza Type B (BEATRIZ) (Negative) Influenza A & B Note 04/07/22 04/07/22 04/07/22 Range/Units 21:45 21:45 21:45 WBC (4.8-10.8) X10*3/uL RBC (4.60-5.80) X10*6/uL Hgb (14.0-18.0) g/dl Hct (42.0-52.0) % MCV (80.0-98.0) fL MCH (27.0-33.0) pg MCHC (31.0-36.0) g/dl RDW (11.0-16.0) % Plt Count (160-400) X10*3/uL MPV (9.4-12.4) fL Immature Gran % (Auto) (0.0-0.4) % Neut % (Auto) (45-73) % Lymph % (Auto) (20-40) % [place]verse % (Auto) (2-11) % Eos % (Auto) (0-4) % Baso % (Auto) (0-2) % Lymph # (Auto) (1.2-4.9) X10*3/uL [place] # (Auto) (0.1-1.2) X10*3/uL Eos # (Auto) (0.0-0.4) X10*3/uL Baso # (Auto) (0.0-0.2) X10*3/uL Abs Immat Gran (auto) (0.00-0.03) X10*3/uL Absolute Neuts (auto) (2.0-8.3) x10*3/uL Absolute Nucleated RBC (0.0-0.012) X10*3/uL Nucleated RBC % (auto) (0.0-0.2) /100WBC PT 14.9 H (10.0-13.1) SEC INR 1.3 H (0.9-1.1) VBG pH (7.32-7.43) VBG pCO2 mmHg VBG pO2 mmHg VBG HCO3 (22-26) mmol/L VBG O2 Saturation % VBG Base Excess mmol/L Sodium (135-145) mmol/L Potassium (3.3-5.1) mmol/L Chloride (96-108) mmol/L Carbon Dioxide (22-29) mmol/L Anion Gap (12-20) BUN (9-16) mg/dL Creatinine (0.5-1.4) mg/dL Estim Creat Clear Calc Estimated GFR Random Glucose (60-115) mg/dL Lactic Acid (0.5-2.0) mmol/L Calcium (8.4-10.2) mg/dL Magnesium (1.6-2.6) mg/dL Total Bilirubin (0.0-1.0) mg/dL Direct Bilirubin (0.0-0.5) mg/dL AST (5-37) U/L ALT (0-40) U/L Alkaline Phosphatase (39-117) U/L Troponin I High Sens < 3.5 (<3.5-35.0) ng/L B-Natriuretic Peptide 19 (<100) pg/mL Total Protein (6.5-8.0) g/dL Albumin (3.5-5.0) g/dL Lipase (8-78) U/L TSH (0.32-4.0) uIU/mL Urine Color Urine Appearance Urine pH (5.0-9.0) Ur Specific [place] (1.005-1.025) Urine Protein (Neg-Trace) mg/dL Urine Glucose (UA) (Negative) mg/dL Urine Ketones (Negative) mg/dL Urine Blood (Negative) Urine Nitrite (Negative) Ur Leukocyte Esterase (Negative) Urine RBC (0-2) /HPF Urine WBC (0-5) /HPF Ur Squamous Epith Cells (0-2) /HPF Urine Bacteria (None Seen) Hyaline Casts (0-2) /LPF Urine Opiates Screen (Not Detect) Urine Fentanyl Screen (Not Detect) Ur Barbiturates Screen (Not Detect) Ur Phencyclidine Scrn (Not Detect) Ur Amphetamines Screen (Not Detect) U Benzodiazepines Scrn (Not Detect) Urine Cocaine Screen (Not Detect) U Marijuana (THC) Screen (Not Detect) COVID-19 ([facility]) (Negative) COVID-19 Clin Com Influenza Type A (BEATRIZ) (Negative) Influenza Type B (BEATRIZ) (Negative) Influenza A & B Note 04/07/22 04/07/22 04/07/22 Range/Units 21:45 21:52 21:52 WBC (4.8-10.8) X10*3/uL RBC (4.60-5.80) X10*6/uL Hgb (14.0-18.0) g/dl Hct (42.0-52.0) % MCV (80.0-98.0) fL MCH (27.0-33.0) pg MCHC (31.0-36.0) g/dl RDW (11.0-16.0) % Plt Count (160-400) X10*3/uL MPV (9.4-12.4) fL Immature Gran % (Auto) (0.0-0.4) % Neut % (Auto) (45-73) % Lymph % (Auto) (20-40) % [place] % (Auto) (2-11) % Eos % (Auto) (0-4) % Baso % (Auto) (0-2) % Lymph # (Auto) (1.2-4.9) X10*3/uL [place] # (Auto) (0.1-1.2) X10*3/uL Eos # (Auto) (0.0-0.4) X10*3/uL Baso # (Auto) (0.0-0.2) X10*3/uL Abs Immat Gran (auto) (0.00-0.03) X10*3/uL Absolute Neuts (auto) (2.0-8.3) x10*3/uL Absolute Nucleated RBC (0.0-0.012) X10*3/uL Nucleated RBC % (auto) (0.0-0.2) /100WBC PT (10.0-13.1) SEC INR (0.9-1.1) VBG pH (7.32-7.43) VBG pCO2 mmHg VBG pO2 mmHg VBG HCO3 (22-26) mmol/L VBG O2 Saturation % VBG Base Excess mmol/L Sodium (135-145) mmol/L Potassium (3.3-5.1) mmol/L Chloride (96-108) mmol/L Carbon Dioxide (22-29) mmol/L Anion Gap (12-20) BUN (9-16) mg/dL Creatinine (0.5-1.4) mg/dL Estim Creat Clear Calc Estimated GFR Random Glucose (60-115) mg/dL Lactic Acid (0.5-2.0) mmol/L Calcium (8.4-10.2) mg/dL Magnesium (1.6-2.6) mg/dL Total Bilirubin (0.0-1.0) mg/dL Direct Bilirubin (0.0-0.5) mg/dL AST (5-37) U/L ALT (0-40) U/L Alkaline Phosphatase (39-117) U/L Troponin I High Sens (<3.5-35.0) ng/L B-Natriuretic Peptide (<100) pg/mL Total Protein (6.5-8.0) g/dL Albumin (3.5-5.0) g/dL Lipase (8-78) U/L TSH 2.06 (0.32-4.0) uIU/mL Urine Color Urine Appearance Urine pH (5.0-9.0) Ur Specific [place] (1.005-1.025) Urine Protein (Neg-Trace) mg/dL Urine Glucose (UA) (Negative) mg/dL Urine Ketones (Negative) mg/dL Urine Blood (Negative) Urine Nitrite (Negative) Ur Leukocyte Esterase (Negative) Urine RBC (0-2) /HPF Urine WBC (0-5) /HPF Ur Squamous Epith Cells (0-2) /HPF Urine Bacteria (None Seen) Hyaline Casts (0-2) /LPF Urine Opiates Screen (Not Detect) Urine Fentanyl Screen (Not Detect) Ur Barbiturates Screen (Not Detect) Ur Phencyclidine Scrn (Not Detect) Ur Amphetamines Screen (Not Detect) U Benzodiazepines Scrn (Not Detect) Urine Cocaine Screen (Not Detect) U Marijuana (THC) Screen (Not Detect) COVID-19 ([facility]) Negative (Negative) COVID-19 Clin Com See Note Influenza Type A (BEATRIZ) Negative (Negative) Influenza Type B (BEATRIZ) Negative (Negative) Influenza A & B Note See Note 04/07/22 04/07/22 04/07/22 Range/Units 21:59 22:52 22:52 WBC (4.8-10.8) X10*3/uL RBC (4.60-5.80) X10*6/uL Hgb (14.0-18.0) g/dl Hct (42.0-52.0) % MCV (80.0-98.0) fL MCH (27.0-33.0) pg MCHC (31.0-36.0) g/dl RDW (11.0-16.0) % Plt Count (160-400) X10*3/uL MPV (9.4-12.4) fL Immature Gran % (Auto) (0.0-0.4) % Neut % (Auto) (45-73) % Lymph % (Auto) (20-40) % [place] % (Auto) (2-11) % Eos % (Auto) (0-4) % Baso % (Auto) (0-2) % Lymph # (Auto) (1.2-4.9) X10*3/uL [place] # (Auto) (0.1-1.2) X10*3/uL Eos # (Auto) (0.0-0.4) X10*3/uL Baso # (Auto) (0.0-0.2) X10*3/uL Abs Immat Gran (auto) (0.00-0.03) X10*3/uL Absolute Neuts (auto) (2.0-8.3) x10*3/uL Absolute Nucleated RBC (0.0-0.012) X10*3/uL Nucleated RBC % (auto) (0.0-0.2) /100WBC PT (10.0-13.1) SEC INR (0.9-1.1) VBG pH 7.35 (7.32-7.43) VBG pCO2 48 mmHg VBG pO2 44 mmHg VBG HCO3 26 (22-26) mmol/L VBG O2 Saturation 59.0 % VBG Base Excess 0.7 mmol/L Sodium (135-145) mmol/L Potassium (3.3-5.1) mmol/L Chloride (96-108) mmol/L Carbon Dioxide (22-29) mmol/L Anion Gap (12-20) BUN (9-16) mg/dL Creatinine (0.5-1.4) mg/dL Estim Creat Clear Calc Estimated GFR Random Glucose (60-115) mg/dL Lactic Acid (0.5-2.0) mmol/L Calcium (8.4-10.2) mg/dL Magnesium (1.6-2.6) mg/dL Total Bilirubin (0.0-1.0) mg/dL Direct Bilirubin (0.0-0.5) mg/dL AST (5-37) U/L ALT (0-40) U/L Alkaline Phosphatase (39-117) U/L Troponin I High Sens (<3.5-35.0) ng/L B-Natriuretic Peptide (<100) pg/mL Total Protein (6.5-8.0) g/dL Albumin (3.5-5.0) g/dL Lipase (8-78) U/L TSH (0.32-4.0) uIU/mL Urine Color Dark Yellow Urine Appearance Turbid Urine pH 5.5 (5.0-9.0) Ur Specific [place] 1.020 (1.005-1.025) Urine Protein 300 (3+) H (Neg-Trace) mg/dL Urine Glucose (UA) Negative (Negative) mg/dL Urine Ketones Trace (Negative) mg/dL Urine Blood Large (3+) H (Negative) Urine Nitrite Negative (Negative) Ur Leukocyte Esterase Large (3+) H (Negative) Urine RBC 6-10 H (0-2) /HPF Urine WBC >50 (0-5) /HPF Ur Squamous Epith Cells 3-5 (0-2) /HPF Urine Bacteria 4+ (None Seen) Hyaline Casts 3-5 (0-2) /LPF Urine Opiates Screen Not Detected (Not Detect) Urine Fentanyl Screen Not Detected (Not Detect) Ur Barbiturates Screen Not Detected (Not Detect) Ur Phencyclidine Scrn Not Detected (Not Detect) Ur Amphetamines Screen Not Detected (Not Detect) U Benzodiazepines Scrn Not Detected (Not Detect) Urine Cocaine Screen Not Detected (Not Detect) U Marijuana (THC) Screen Not Detected (Not Detect) COVID-19 ([facility]) (Negative) COVID-19 Clin Com Influenza Type A (BEATRIZ) (Negative) Influenza Type B (BEATRIZ) (Negative) Influenza A & B Note Independent Interpretation I performed an independent interpretation of an: Plain X-Ray (My chest x-ray interpretation: No pneumonia) Radiology Impression Discussion of test interpretation with radiology: I have reviewed the radiologist's reading. Radiologist Impression: FINDINGS: Lungs are well expanded. Cardiac leads overlie the chest. No consolidation, edema, or effusion. No pneumothorax. The cardiomediastinal silhouette is unchanged, with a tortuous aorta. XR/XR chest 1V IMPRESSION: No acute pulmonary disease. Critical Care Time Critical Care Time Critical Care Time: Yes Total Critical Care Time: 60 Attestation: I have personally provided critical care time. Time includes review of lab data, radiology results, discussion with consultants, and monitoring for potential decompensation. Intervention performed as documented. Discharge Plan Discharge Clinical Impression: Acute UTI, Acute hypokalemia Patient Disposition: Admitted As Inpatient
[2022-04-07 21:59] LABS: Basophils Percent Auto 0.4 % (0-2); Eosinophils Absolute Auto 0.1 X10*3/uL (0.0-0.4); Eosinophils Percent Auto 0.9 % (0-4); Hematocrit 39.1 % (42.0-52.0); Hemoglobin 12.5 g/dl (14.0-18.0); Imm Gran Abs Auto 0.01 X10*3/uL (0.00-0.03); Imm Gran Pct Auto 0.1 % (0.0-0.4); Lymphocytes Absolute Auto 1.3 X10*3/uL (1.2-4.9); Lymphocytes Percent Auto 19.1 % (20-40); MANUAL DIFF FLAG NO; Mean Corpuscular Hemoglobin 28.1 pg (27.0-33.0); Mean Corpuscular Volume 87.9 fL (80.0-98.0); Mean Platelet Volume 10.1 fL (9.4-12.4); Monocytes Absolute Auto 0.5 X10*3/uL (0.1-1.2); Monocytes Percent Auto 7.5 % (2-11); Platelet Count 237 X10*3/uL (160-400); Red Blood Count 4.45 X10*6/uL (4.60-5.80); Red Cell Distribution Width 17.6 % (11.0-16.0); White Blood Count 6.9 X10*3/uL (4.8-10.8)
[2022-04-07 22:06] LABS: INTERNATIONAL NORM RATIO 1.3 (0.9-1.1); Prothrombin Time 14.9 SEC (10.0-13.1)
[2022-04-07 22:06] LABS: VBG Base Excess 0.7 mmol/L; VBG HCO3 26 mmol/L (22-26); VBG pCO2 48 mmHg; VBG pH 7.35 (7.32-7.43); VBG pO2 44 mmHg
[2022-04-07 22:06] LABS: Venous Blood Gas Refer to POC result
[2022-04-07] MEDS: 0.9 % Sodium Chloride 2,000 ML 999 ML IVCONT (22:15)
[2022-04-07 22:19] LABS: Lactic Acid 2.5 mmol/L (0.5-2.0)
[2022-04-07 22:21] LABS: B Type Natriuretic Peptide 19 pg/mL (<100)
[2022-04-07 22:26] LABS: COVID-19 Test Negative (Negative); IDNOW Serial# 16C4AD1C; IDNOW Serial# BCCEAD1C; Influenza A Negative (Negative); Influenza B2 Negative (Negative)
[2022-04-07 22:26] LABS: Alanine Aminotransferase < 6 U/L (0-40); Albumin Level 3.4 g/dL (3.5-5.0); Alkaline Phosphatase 107 U/L (39-117); Anion Gap 14 (12-20); Aspartate Amino Transferase 11 U/L (5-37); Bilirubin Direct 0.4 mg/dL (0.0-0.5); Bilirubin Total 1.3 mg/dL (0.0-1.0); Blood Urea Nitrogen 12 mg/dL (9-16); Calcium 8.6 mg/dL (8.4-10.2); Carbon Dioxide 26 mmol/L (22-29); Chloride 106 mmol/L (96-108); Creatinine Clr Calc Pharmacy 50.8; Estimated Glomerular Filt Rate 49; Glucose Random 137 mg/dL (60-115); Lipase 64 U/L (8-78); Magnesium 1.9 mg/dL (1.6-2.6); Potassium 3.1 mmol/L (3.3-5.1); Sodium 143 mmol/L (135-145); Total Protein 6.4 g/dL (6.5-8.0)
[2022-04-07 22:34] LABS: Troponin-I High Sensitivity < 3.5 ng/L (<3.5-35.0)
[2022-04-07 22:36] LABS: TSH reflex Free T4 2.06 uIU/mL (0.32-4.0)
[2022-04-07 23:02] VITALS: BP 87/56; PULSE 69; RESP 8; TEMP 36.6; O2SAT 99
[2022-04-07 23:02] LABS: Appearance Urine Turbid; Color Urine Dark Yellow; Glucose Urine UA Negative (Negative); Leukocyte Esterase Urine Large (3+) (Negative); Nitrite Urine Negative (Negative); PH 5.5 (5.0-9.0); UMIC TRIGGER UACC YES; Urine Blood Large (3+) (Negative); Urine Ketones Trace mg/dL (Negative); Urine Protein 300 (3+) mg/dL (Neg-Trace)
[2022-04-07 23:17] LABS: Amphetamine Screen Urine Not Detected (Not Detect); Barbiturates, Urine Not Detected (Not Detect); Benzodiazepines Screen Urine Not Detected (Not Detect); Cannabinoid Screen Urine Not Detected (Not Detect); Cocaine Screen Urine Not Detected (Not Detect); Fentanyl, urine Not Detected (Not Detect); Opiate Screen Urine Not Detected (Not Detect); Phencyclidine Screen Urine Not Detected (Not Detect)
[2022-04-07 23:22] VITALS: BP 89/56; PULSE 69; RESP 12; O2SAT 100
[2022-04-07] MEDS: cefTRIAXone sodium 1 GM in 0.9 % Sodium Chloride 50 ML IV (23:22)
[2022-04-07 23:44] VITALS: BP 92/57; PULSE 68; RESP 10; O2SAT 100
[2022-04-07 23:47] LABS: Bacteria Urine 4+ (None Seen); UACC Culture Trigger YES; WBC Urine >50 /HPF (0-5)
[2022-04-07 23:55] LABS: Reflex Lactate? Lactic Acid Added
[2022-04-08] VITALS (10 sets, daily range): BP systolic 105–141; BP diastolic 68–88; PULSE 60–89; RESP 10–17; TEMP 36.1–36.9; O2SAT 92–100
[2022-04-08] MEDS: 0.9 % Sodium Chloride 1,000 ML 999 ML IVCONT (00:34)
--- NOTE | 2022-04-08 00:34 | PC.NURSE ---
unable to give PO Klor Con due to pt being unresposive to verbal stimuli, discussed this with Dr. Negrete who agreed and will do IV instead
[2022-04-08 00:56] LABS: ~Lactic Acid-LAB USE ONLY 1.2 mmol/L (0.5-2.0)
--- NOTE | 2022-04-08 01:11 | PM.IMHP ---
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 for evaluation of decreased mentation. Unable to obtain any history from the patient. History obtained from chart review and ER provider. As per the records, patient is awake, alert and follows commands at baseline. He is nonambulatory at baseline. Patient was found to be lethargic with decreased responsiveness and hence was sent to the ER for further evaluation. Unable to obtain review of systems. In the emergency department, urine was concerning for UTI. He was resuscitated with IV crystalloids and given empiric IV antibiotics. Review of Systems Review of Systems: Yes Unobtainable due to mental condition and Unobtainable due to mental status PMFSH Medical History CVA (cerebral vascular accident) Mixed hyperlipidemia Pertinent family history: Not significant Social History Alcohol intake: former Patient Tobacco Use Status: Never used Tobacco Smoked in Last 30 Days: No Use of substances other than those prescribed or required for medical reasons: No Advance Directives: Yes Advance Directives on File: Yes Advance Directives Date on File: 01/16/22 Nutrition Risks: No Nutritional Risk Meds Allergies Allergy/AdvReac Type Severity Reaction Status Date / Time No Known Allergies Allergy Verified 04/08/22 00:58 [No Known Allergies*] Home Medications Medication Instructions Recorded Confirmed Last Taken Type acetaminophen 325 mg tablet 325 mg PO QID PRN Pain 04/08/22 04/08/22 Unknown History albuterol 90 mcg/actuation aerosol 90 mcg inhalation 04/08/22 Unknown History inhaler amitriptyline 25 mg tablet 1 tab PO BEDTIME 04/08/22 04/08/22 Unknown History atorvastatin 20 mg tablet 1 tab PO DAILY 04/08/22 04/08/22 Unknown History baclofen 10 mg tablet 10 tab PO 04/08/22 Unknown History clopidogrel 75 mg tablet 1 tab PO DAILY 04/08/22 04/08/22 Unknown History gabapentin 100 mg capsule 100 cap PO 04/08/22 Unknown History hydralazine 25 mg tablet 1 tab PO QID 04/08/22 04/08/22 Unknown History lactulose 10 gram/15 mL oral ml PO 04/08/22 Unknown History solution melatonin 5 mg tablet 5 mg PO BEDTIME PRN Insomnia 04/08/22 04/08/22 Unknown History metoprolol tartrate 25 mg tablet 1 tab PO BID 04/08/22 04/08/22 Unknown History nystatin 100,000 unit/gram topical 1 applic topical BID-TID 04/08/22 04/08/22 Unknown History powder (Nystop) oxycodone 5 mg tablet 1 tab PO 04/08/22 Unknown History oxymetazoline 0.05 % nasal mist 2 spray intranasal Q12H PRN Sinus 04/08/22 04/08/22 Unknown History (Afrin (oxymetazoline)) Symptoms pregabalin 100 mg capsule 1 cap PO TID 04/08/22 04/08/22 Unknown History Physical Exam Vital Signs and Narrative: Vital Signs: Last Vital Signs Temp 97.9 F 04/07/22 23:02 Pulse 60 04/08/22 00:22 Resp 10 L 04/08/22 00:22 BP 105/70 04/08/22 00:22 Pulse Ox 100 04/08/22 00:22 O2 Del Method 04/08/22 00:22 O2 Flow Rate 3 04/08/22 00:22 Oxygen Flow Rate 6 04/07/22 21:28 BMI result Body Mass Index 23.2 Elderly male lying in bed in no distress Neck supple, no JVD Decreased breath sounds at bases Regular rate and rhythm Abdomen soft nontender, no guarding, no rigidity Patient is drowsy and only awakens to painful stimulus Psych: Drowsy No pedal edema Results Labs 04/07/22 21:45 04/07/22 21:45 Labs: Laboratory Results - last 24 hr 04/07/22 04/07/22 04/07/22 21:45 21:45 21:45 MCV 87.9 MCH 28.1 MCHC 32.0 RDW 17.6 H Plt Count 237 D MPV 10.1 Immature Gran % (Auto) 0.1 Neut % (Auto) 72.0 Lymph % (Auto) 19.1 L [place] % (Auto) 7.5 Eos % (Auto) 0.9 Baso % (Auto) 0.4 Lymph # (Auto) 1.3 [place] # (Auto) 0.5 Eos # (Auto) 0.1 Baso # (Auto) 0.0 Abs Immat Gran (auto) 0.01 Absolute Neuts (auto) 5.0 Absolute Nucleated RBC 0.000 Nucleated RBC % (auto) 0.0 PT INR VBG pH VBG pCO2 VBG pO2 VBG HCO3 VBG O2 Saturation VBG Base Excess Anion Gap 14 Estim Creat Clear Calc 50.8 Estimated GFR 49 Random Glucose 137 H Lactic Acid 2.5 H* Lactic Acid F/U @ 2Hr Calcium 8.6 Magnesium 1.9 Total Bilirubin 1.3 H Direct Bilirubin 0.4 AST 11 ALT < 6 Alkaline Phosphatase 107 Troponin I High Sens B-Natriuretic Peptide Total Protein 6.4 L Albumin 3.4 L Lipase 64 TSH Urine Color Urine Appearance Urine pH Ur Specific [place] Urine Protein Urine Glucose (UA) Urine Ketones Urine Blood Urine Nitrite Ur Leukocyte Esterase Urine RBC Urine WBC Ur Squamous Epith Cells Urine Bacteria Hyaline Casts Urine Opiates Screen Urine Fentanyl Screen Ur Barbiturates Screen Ur Phencyclidine Scrn Ur Amphetamines Screen U Benzodiazepines Scrn Urine Cocaine Screen U Marijuana (THC) Screen COVID-19 (FORREST) COVID-19 Clin Com Influenza Type A (BEATRIZ) Influenza Type B (BEATRIZ) Influenza A & B Note 04/07/22 04/07/22 04/07/22 21:45 21:45 21:45 MCV MCH MCHC RDW Plt Count MPV Immature Gran % (Auto) Neut % (Auto) Lymph % (Auto) [place] % (Auto) Eos % (Auto) Baso % (Auto) Lymph # (Auto) [place] # (Auto) Eos # (Auto) Baso # (Auto) Abs Immat Gran (auto) Absolute Neuts (auto) Absolute Nucleated RBC Nucleated RBC % (auto) PT 14.9 H INR 1.3 H VBG pH VBG pCO2 VBG pO2 VBG HCO3 VBG O2 Saturation VBG Base Excess Anion Gap Estim Creat Clear Calc Estimated GFR Random Glucose Lactic Acid Lactic Acid F/U @ 2Hr Calcium Magnesium Total Bilirubin Direct Bilirubin AST ALT Alkaline Phosphatase Troponin I High Sens < 3.5 B-Natriuretic Peptide 19 Total Protein Albumin Lipase TSH Urine Color Urine Appearance Urine pH Ur Specific [place] Urine Protein Urine Glucose (UA) Urine Ketones Urine Blood Urine Nitrite Ur Leukocyte Esterase Urine RBC Urine WBC Ur Squamous Epith Cells Urine Bacteria Hyaline Casts Urine Opiates Screen Urine Fentanyl Screen Ur Barbiturates Screen Ur Phencyclidine Scrn Ur Amphetamines Screen U Benzodiazepines Scrn Urine Cocaine Screen U Marijuana (THC) Screen COVID-19 (FORREST) COVID-19 Clin Com Influenza Type A (BEATRIZ) Influenza Type B (BEATRIZ) Influenza A & B Note 04/07/22 04/07/22 04/07/22 21:45 21:52 21:52 MCV MCH MCHC RDW Plt Count MPV Immature Gran % (Auto) Neut % (Auto) Lymph % (Auto) [place] % (Auto) Eos % (Auto) Baso % (Auto) Lymph # (Auto) [place] # (Auto) Eos # (Auto) Baso # (Auto) Abs Immat Gran (auto) Absolute Neuts (auto) Absolute Nucleated RBC Nucleated RBC % (auto) PT INR VBG pH VBG pCO2 VBG pO2 VBG HCO3 VBG O2 Saturation VBG Base Excess Anion Gap Estim Creat Clear Calc Estimated GFR Random Glucose Lactic Acid Lactic Acid F/U @ 2Hr Calcium Magnesium Total Bilirubin Direct Bilirubin AST ALT Alkaline Phosphatase Troponin I High Sens B-Natriuretic Peptide Total Protein Albumin Lipase TSH 2.06 Urine Color Urine Appearance Urine pH Ur Specific [place] Urine Protein Urine Glucose (UA) Urine Ketones Urine Blood Urine Nitrite Ur Leukocyte Esterase Urine RBC Urine WBC Ur Squamous Epith Cells Urine Bacteria Hyaline Casts Urine Opiates Screen Urine Fentanyl Screen Ur Barbiturates Screen Ur Phencyclidine Scrn Ur Amphetamines Screen U Benzodiazepines Scrn Urine Cocaine Screen U Marijuana (THC) Screen COVID-19 (FORREST) Negative COVID-19 Clin Com See Note Influenza Type A (BEATRIZ) Negative Influenza Type B (BEATRIZ) Negative Influenza A & B Note See Note 04/07/22 04/07/22 04/07/22 21:59 22:52 22:52 MCV MCH MCHC RDW Plt Count MPV Immature Gran % (Auto) Neut % (Auto) Lymph % (Auto) [place] % (Auto) Eos % (Auto) Baso % (Auto) Lymph # (Auto) [place] # (Auto) Eos # (Auto) Baso # (Auto) Abs Immat Gran (auto) Absolute Neuts (auto) Absolute Nucleated RBC Nucleated RBC % (auto) PT INR VBG pH 7.35 VBG pCO2 48 VBG pO2 44 VBG HCO3 26 VBG O2 Saturation 59.0 VBG Base Excess 0.7 Anion Gap Estim Creat Clear Calc Estimated GFR Random Glucose Lactic Acid Lactic Acid F/U @ 2Hr Calcium Magnesium Total Bilirubin Direct Bilirubin AST ALT Alkaline Phosphatase Troponin I High Sens B-Natriuretic Peptide Total Protein Albumin Lipase TSH Urine Color Dark Yellow Urine Appearance Turbid Urine pH 5.5 Ur Specific [place] 1.020 Urine Protein 300 (3+) H Urine Glucose (UA) Negative Urine Ketones Trace Urine Blood Large (3+) H Urine Nitrite Negative Ur Leukocyte Esterase Large (3+) H Urine RBC 6-10 H Urine WBC >50 Ur Squamous Epith Cells 3-5 Urine Bacteria 4+ Hyaline Casts 3-5 Urine Opiates Screen Not Detected Urine Fentanyl Screen Not Detected Ur Barbiturates Screen Not Detected Ur Phencyclidine Scrn Not Detected Ur Amphetamines Screen Not Detected U Benzodiazepines Scrn Not Detected Urine Cocaine Screen Not Detected U Marijuana (THC) Screen Not Detected COVID-19 (FORREST) COVID-19 Clin Com Influenza Type A (BEATRIZ) Influenza Type B (BEATRIZ) Influenza A & B Note 04/08/22 00:39 MCV MCH MCHC RDW Plt Count MPV Immature Gran % (Auto) Neut % (Auto) Lymph % (Auto) [place] % (Auto) Eos % (Auto) Baso % (Auto) Lymph # (Auto) [place] # (Auto) Eos # (Auto) Baso # (Auto) Abs Immat Gran (auto) Absolute Neuts (auto) Absolute Nucleated RBC Nucleated RBC % (auto) PT INR VBG pH VBG pCO2 VBG pO2 VBG HCO3 VBG O2 Saturation VBG Base Excess Anion Gap Estim Creat Clear Calc Estimated GFR Random Glucose Lactic Acid Lactic Acid F/U @ 2Hr 1.2 Calcium Magnesium Total Bilirubin Direct Bilirubin AST ALT Alkaline Phosphatase Troponin I High Sens B-Natriuretic Peptide Total Protein Albumin Lipase TSH Urine Color Urine Appearance Urine pH Ur Specific [place] Urine Protein Urine Glucose (UA) Urine Ketones Urine Blood Urine Nitrite Ur Leukocyte Esterase Urine RBC Urine WBC Ur Squamous Epith Cells Urine Bacteria Hyaline Casts Urine Opiates Screen Urine Fentanyl Screen Ur Barbiturates Screen Ur Phencyclidine Scrn Ur Amphetamines Screen U Benzodiazepines Scrn Urine Cocaine Screen U Marijuana (THC) Screen COVID-19 (FORREST) COVID-19 Clin Com Influenza Type A (BEATRIZ) Influenza Type B (BEATRIZ) Influenza A & B Note Imaging Radiologist's Impressions: Impressions Chest X-Ray 04/07/22 21:45 IMPRESSION: No acute pulmonary disease. Head CT 04/07/22 22:18 IMPRESSION: No acute intracranial pathology. Chronic volume loss with small vessel ischemic change. 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 for evaluation of decreased mentation. #. Acute UTI: Continue empiric IV antibiotics. Follow blood culture and urine culture. #. Acute metabolic encephalopathy in the setting of above #. Acute kidney injury, stage I, prerenal versus ATN. Monitor with IV fluid resuscitation. Avoid nephrotoxins #. Lactic acidosis, resolved with fluid resuscitation. Due to hypoperfusion and not due to severe sepsis #. Hypokalemia: Repleted #. History of CVA with right-sided deficits: On statin and Plavix #. Mood disorder: Continue home mood stabilizers Med rec pending DNR/DNI. As per daughter who was present earlier in the ER NPO until mentation improves DVT prophylaxis: Lovenox 40 mg daily Admit as inpatient and will require two night minimum hospital stay for IV antibiotics Time Spent With Patient Time: Total time managing care of this patient today ____ minutes. Quality Stroke Does the patient have a stroke diagnosis?: No VTE Prior VTE?: No VTE Risk Level:: Medical - moderate - high VTE Device Contraindication: Treatment Not Indicated VTE Drug Contraindication: N/A - Med Ordered
[2022-04-08] MEDS: Potassium Chloride/H20 10 MEQ/100 ML PIGGYBACK 100 MEQ IV ×4 (01:51→05:43)
--- NOTE | 2022-04-08 02:21 | PC.NURSE ---
Late entry: pt comes from [facility] in [place], this Rn called and spoke to nursing staff there who states that the pt had an unwitnessed fall at approximately 6am, according to nurse at [facility], pt was alert and oriented after the fall and his last known well time was 5pm at dinner time. 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 Pt is unable to answer questions at this time and is minimally responsive to painful stimuli 20g in LAC placed upon pt arrival, pt was straight cathed to obtain urine (urine cloudy with chunks ). Pt normal sinus on the monitor and has remained such since arrival. blood pressure has improved with fluids replacement
--- NOTE | 2022-04-08 03:36 | PC.NURSE ---
Took over care at 3:30am, pt sleeping, pt reposition for comfort, medication running. Will continue to monitor.
--- NOTE | 2022-04-08 04:01 | PC.NURSE ---
Notified Dr. Hinkle of pt retaining urine, 330cc, okay to put ordonez in.
--- NOTE | 2022-04-08 04:36 | PC.NURSE ---
Per order ordonez placed 300cc output, discover a lump on pt testicle, notified Dr. Hinkle and Picture sent. Plan to is to [facility] in am. Will continue to monitor
[2022-04-08 05:18] LABS: MANUAL DIFF FLAG NO
[2022-04-08 05:33] LABS: Basophils Percent Auto 0.5 % (0-2); Eosinophils Percent Auto 0.7 % (0-4); Hematocrit 35.6 % (42.0-52.0); Hemoglobin 11.5 g/dl (14.0-18.0); Imm Gran Abs Auto 0.03 X10*3/uL (0.00-0.03); Imm Gran Pct Auto 0.7 % (0.0-0.4); Lymphocytes Percent Auto 22.5 % (20-40); Mean Corpuscular HGB Conc 32.3 g/dl (31.0-36.0); Mean Corpuscular Hemoglobin 28.2 pg (27.0-33.0); Mean Corpuscular Volume 87.3 fL (80.0-98.0); Mean Platelet Volume 10.3 fL (9.4-12.4); Monocytes Absolute Auto 0.4 X10*3/uL (0.1-1.2); Monocytes Percent Auto 8.2 % (2-11); Neutrophils Percent Auto 67.4 % (45-73); Platelet Count 187 X10*3/uL (160-400); Red Blood Count 4.08 X10*6/uL (4.60-5.80); Red Cell Distribution Width 17.2 % (11.0-16.0); White Blood Count 4.4 X10*3/uL (4.8-10.8)
[2022-04-08] MEDS: Enoxaparin Sodium 40 MG/0.4 ML SYRINGE SUBCUT (05:42)
[2022-04-08 05:44] LABS: Anion Gap 16 (12-20); Blood Urea Nitrogen 10 mg/dL (9-16); Calcium 7.6 mg/dL (8.4-10.2); Carbon Dioxide 18 mmol/L (22-29); Chloride 117 mmol/L (96-108); Creatinine Clr Calc Pharmacy 64.4; Estimated Glomerular Filt Rate > 60; Glucose Random 124 mg/dL (60-115); Potassium 4.3 mmol/L (3.3-5.1); Sodium 147 mmol/L (135-145)
--- NOTE | 2022-04-08 10:41 | PHA.MEDREC ---
Pharmacy Consult ? Medication Reconciliation Pharmacy has completed the medication reconciliation. Completed med rec using claim history. Tried reaching [facility] ([phone]) 4 times to get a med list and was transferred/disconnected each time. Called [facility] for clarification on baclofen dosing.
[2022-04-08] MEDS: 0.9 % Sodium Chloride Flush 3 ML SYRINGE IVFLUSH ×3 (10:47→21:08)
--- NOTE | 2022-04-08 11:15 | PC.NURSE ---
per Dr Lee, pt ok to have PO meds as long as he passes nursing bedside swallow eval
--- NOTE | 2022-04-08 11:58 | PC.NURSE ---
pt unwilling/unable to follow directions for bedside swallow eval. will hold PO meds, keep pt NPO until swallow eval complete. . Jesus aware
[2022-04-08] MEDS: Nystatin Powder 15 GM BOTTLE 1 APPL TOPICAL ×2 (12:17→21:08)
--- NOTE | 2022-04-08 12:40 | P.EN_ITS ---
Event Note Date of Service: 04/08/22 Event Note: Seen and examined, [facility], metabolic encephalopathy, dysphagia, speech and swallow eval ordered, continue IV Abx, IV, NPO. o/w a/p per h and p from this morning. Time Spent With Patient Time: Total time managing care of this patient today ____ minutes.
[2022-04-08] MEDS: cefTRIAXone sodium 1 GM in 0.9 % Sodium Chloride 50 ML IV (21:08)
[2022-04-09 04:00] VITALS: BP 128/75; PULSE 89; RESP 18; TEMP 36.1; O2SAT 93
[2022-04-09] MEDS: Enoxaparin Sodium 40 MG/0.4 ML SYRINGE SUBCUT (05:22)
[2022-04-09 08:00] VITALS: BP 131/83; PULSE 96; RESP 18; TEMP 36.8; O2SAT 94
[2022-04-09] MEDS: 0.9 % Sodium Chloride Flush 3 ML SYRINGE IVFLUSH (08:18)
[2022-04-09] MEDS: Nystatin Powder 15 GM BOTTLE 1 APPL TOPICAL ×3 (08:18→20:57)
[2022-04-09 08:40] LABS: Anion Gap 15 (12-20); Blood Urea Nitrogen 6 mg/dL (9-16); Calcium 8.2 mg/dL (8.4-10.2); Carbon Dioxide 23 mmol/L (22-29); Chloride 113 mmol/L (96-108); Creatinine Clr Calc Pharmacy 85.9; Estimated Glomerular Filt Rate > 60; Glucose Random 96 mg/dL (60-115); Potassium 3.3 mmol/L (3.3-5.1); Sodium 148 mmol/L (135-145)
--- NOTE | 2022-04-09 08:52 | P.PNIM_ITS ---
Subjective Subjective Date of Service: 04/09/22 Interval History: Follow-up on metabolic encephalopathy, UTI. Hypernatremia. Interval history: Patient is nonverbal a baseline seems to be a with his baseline right now, sodium is still elevated at 148. Physical Exam Vital Signs: Vital Signs: Last Vital Signs Temp 98.2 F 04/09/22 08:00 Pulse 96 04/09/22 08:00 Resp 18 04/09/22 08:00 BP 131/83 04/09/22 08:00 Pulse Ox 94 04/09/22 08:00 O2 Del Method 04/09/22 08:00 O2 Flow Rate 4 04/08/22 10:46 Oxygen Flow Rate 6 04/07/22 21:28 BMI result Body Mass Index 23.2 Const: Other: Elderly male lying in bed in no distress Neck supple, no JVD Decreased breath sounds at bases Regular rate and rhythm Abdomen soft nontender, no guarding, no rigidity Patient is drowsy and only awakens to painful stimulus Neuro complete right sided weakness with righ foot drop Psych:? Drowsy No pedal edema Objective Data Active Medications Acetaminophen (Acetaminophen 325 Mg Tablet) 650 mg PO Q6H PRN PRN Reason: Pain, Mild (Pain Scale 1-3) Acetaminophen (Acetaminophen Supp 650 Mg Supp.Rect) 650 mg LA Q6H PRN PRN Reason: Pain, Mild (Pain Scale 1-3) Amitriptyline HCl (Amitriptyline Hcl 25 Mg Tablet) 25 mg PO BEDTIME [facility] Last Admin: 04/08/22 19:50 Dose: Not Given Documented By: DANI Non-Admin Reason: NPO Atorvastatin Calcium (Atorvastatin Calcium 20 Mg Tablet) 20 mg PO DAILY [facility] Last Admin: 04/09/22 08:16 Dose: Not Given Documented By: CODI Non-Admin Reason: NPO Clopidogrel Bisulfate (Clopidogrel Bisulfate 75 Mg Tablet) 75 mg PO DAILY [facility] Last Admin: 04/09/22 08:16 Dose: Not Given Documented By: CODI Non-Admin Reason: NPO Enoxaparin Sodium (Enoxaparin Sodium 40 Mg/0.4 Ml Syringe) 40 mg SUBCUT Q24H [facility] Last Admin: 04/09/22 05:22 Dose: 40 mg Documented By: DANI Hydralazine HCl (Hydralazine Hcl 25 Mg Tablet) 25 mg PO QID [facility]; Protocol Last Admin: 04/09/22 08:16 Dose: Not Given Documented By: CODI Non-Admin Reason: NPO Ceftriaxone Sodium 1 gm/ (Sodium Chloride) 50 mls @ 100 mls/hr IV Q24H [facility] Last Infusion: 04/08/22 21:45 Dose: 0 mls/hr Documented By: DANI Lactulose (Lactulose 20 Gm/30 Ml Solution) 10 gm PO DAILY [facility] Last Admin: 04/09/22 08:17 Dose: Not Given Documented By: CODI Non-Admin Reason: NPO Melatonin (Melatonin 3 Mg Tablet) 6 mg PO BEDTIME PRN PRN Reason: Insomnia Metoprolol Tartrate (Metoprolol Tartrate 25 Mg Tablet) 25 mg PO BID [facility]; Protocol Last Admin: 04/09/22 08:17 Dose: Not Given Documented By: CODI Non-Admin Reason: NPO Nystatin (Nystatin Powder 15 Gm Bottle) 1 appl TOPICAL TID [facility]; Protocol Last Admin: 04/09/22 08:18 Dose: 1 appl Documented By: CODI Ondansetron HCl (Ondansetron Hcl 4 Mg/2 Ml Vial) 4 mg IVPUSH Q8H PRN PRN Reason: Nausea and Vomiting Pharmacy Consult (Consult Rx Perform Med Rec) 1 each MISCELLANE ONCE PRN PRN Reason: Consult order Pregabalin (Pregabalin 100 Mg Capsule) 100 mg PO TID [facility] Last Admin: 04/09/22 08:17 Dose: Not Given Documented By: CODI Non-Admin Reason: NPO Sodium Chloride (0.9 % Sodium Chloride Flush 3 Ml Syringe) 3 ml IVFLUSH QSHIFT [facility] Last Admin: 04/09/22 08:18 Dose: 3 ml Documented By: CODI Labs 04/08/22 05:14 04/09/22 07:46 Labs: Laboratory Results - last 24 hr 04/09/22 07:46 Anion Gap 15 Estim Creat Clear Calc 85.9 Estimated GFR > 60 Random Glucose 96 Calcium 8.2 L D Microbiology Microbiology Results: Microbiology 04/07/22 21:52 Blood Culture - Preliminary Blood - Venous No growth after 24 hours. 04/07/22 21:52 Blood Culture - Preliminary Blood - Venous No growth after 24 hours. 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 #. Acute UTI: continue Ceftriaxone, culture pending #. Acute metabolic encephalopathy d/t uti #. Acute kidney injury, possible ATN, resolved. #. Acute Lactic acidosis, resolved with fluid resuscitation. Due to hypoperfusion and not due to severe sepsis #. HypOkalemia: Repleted, resolved #. History of CVA with right-sided deficits: On statin and Plavix #. Hypernatremia : Add D5 1/2 NS and repeat tomorrow #. Mood disorder: Continue home mood stabilizers #. Dysphagia, [employer] eval before feeding, failed bedside swallow DNR/DNI. As per daughter who was present earlier in the ER NPO until mentation improves DVT prophylaxis: Lovenox 40 mg daily Need for inpatietn: acute UTI, metabolicn encephalopathy, dysphagia on ivf Time Spent With Patient Time: Total time managing care of this patient today ____ minutes. Quality Stroke Does the patient have a stroke diagnosis?: No VTE Prior VTE?: No VTE Risk Level:: Medical - moderate - high VTE Device Contraindication: Treatment Not Indicated VTE Drug Contraindication: N/A - Med Ordered
[2022-04-09] MEDS: Dextrose 5 % and 0.45 % NaCl 1,000 ML 100 ML IVCONT (14:53)
[2022-04-09 16:00] VITALS: BP 140/80; PULSE 108; RESP 18; TEMP 35.9; O2SAT 93
[2022-04-09 20:00] VITALS: BP 122/78; PULSE 101; RESP 18; TEMP 35.8; O2SAT 92
[2022-04-09] MEDS: Pregabalin 100 MG CAPSULE PO (20:53)
[2022-04-09] MEDS: cefTRIAXone sodium 1 GM in 0.9 % Sodium Chloride 50 ML IV (22:27)
[2022-04-10] MEDS: Dextrose 5 % and 0.45 % NaCl 1,000 ML 100 ML IVCONT ×3 (00:30→20:42)
[2022-04-10 03:06] VITALS: BP 145/80; PULSE 86; RESP 20; TEMP 36.2; O2SAT 92
[2022-04-10] MEDS: Enoxaparin Sodium 40 MG/0.4 ML SYRINGE SUBCUT (05:59)
[2022-04-10 08:00] VITALS: BP 144/90; PULSE 96; RESP 18; TEMP 36.8; O2SAT 94
--- NOTE | 2022-04-10 08:37 | P.PNIM_ITS ---
Subjective Subjective Date of Service: 04/10/22 Interval History: Follow-up on metabolic encephalopathy, UTI. Hypernatremia. Interval history: Patient is nonverbal a baseline seems to be a with his baseline right now, sodium is still elevated at 148. Physical Exam Vital Signs: Vital Signs: Last Vital Signs Temp 98.2 F 04/10/22 08:00 Pulse 96 04/10/22 08:00 Resp 18 04/10/22 08:00 BP 144/90 H 04/10/22 08:00 Pulse Ox 94 04/10/22 08:00 O2 Del Method 04/10/22 08:00 O2 Flow Rate 4 04/08/22 10:46 Oxygen Flow Rate 6 04/07/22 21:28 BMI result Body Mass Index 23.2 Const: Other: Elderly male lying in bed in no distress Neck supple, no JVD Decreased breath sounds at bases Regular rate and rhythm Abdomen soft nontender, no guarding, no rigidity Patient is drowsy and only awakens to painful stimulus Neuro complete right sided weakness with righ foot drop Psych:? Drowsy No pedal edema Objective Data Active Medications Acetaminophen (Acetaminophen 325 Mg Tablet) 650 mg PO Q6H PRN PRN Reason: Pain, Mild (Pain Scale 1-3) Acetaminophen (Acetaminophen Supp 650 Mg Supp.Rect) 650 mg ND Q6H PRN PRN Reason: Pain, Mild (Pain Scale 1-3) Amitriptyline HCl (Amitriptyline Hcl 25 Mg Tablet) 25 mg PO BEDTIME [facility] Last Admin: 04/09/22 20:54 Dose: Not Given Documented By: LILLIE Non-Admin Reason: NPO Atorvastatin Calcium (Atorvastatin Calcium 20 Mg Tablet) 20 mg PO DAILY [facility] Last Admin: 04/10/22 07:37 Dose: Not Given Documented By: SUZI Non-Admin Reason: NPO Clopidogrel Bisulfate (Clopidogrel Bisulfate 75 Mg Tablet) 75 mg PO DAILY [facility] Last Admin: 04/10/22 07:37 Dose: Not Given Documented By: SUZI Non-Admin Reason: NPO Enoxaparin Sodium (Enoxaparin Sodium 40 Mg/0.4 Ml Syringe) 40 mg SUBCUT Q24H [facility] Last Admin: 04/10/22 05:59 Dose: 40 mg Documented By: LILLIE Hydralazine HCl (Hydralazine Hcl 25 Mg Tablet) 25 mg PO QID [facility]; Protocol Last Admin: 04/10/22 07:37 Dose: Not Given Documented By: SUZI Non-Admin Reason: NPO Ceftriaxone Sodium 1 gm/ (Sodium Chloride) 50 mls @ 100 mls/hr IV Q24H [facility] Last Infusion: 04/09/22 23:00 Dose: 0 mls/hr Documented By: LILLIE Dextrose/Sodium Chloride (D51/2ns) 1,000 mls @ 100 mls/hr IVCONT .Q10H [facility] Last Admin: 04/10/22 00:30 Dose: 100 mls/hr Documented By: LILLIE Lactulose (Lactulose 20 Gm/30 Ml Solution) 10 gm PO DAILY [facility] Last Admin: 04/10/22 07:37 Dose: Not Given Documented By: SUZI Non-Admin Reason: NPO Melatonin (Melatonin 3 Mg Tablet) 6 mg PO BEDTIME PRN PRN Reason: Insomnia Metoprolol Tartrate (Metoprolol Tartrate 25 Mg Tablet) 25 mg PO BID [facility]; Protocol Last Admin: 04/10/22 07:37 Dose: Not Given Documented By: SUZI Non-Admin Reason: NPO Nystatin (Nystatin Powder 15 Gm Bottle) 1 appl TOPICAL TID [facility]; Protocol Last Admin: 04/09/22 20:57 Dose: 1 appl Documented By: LILLIE Ondansetron HCl (Ondansetron Hcl 4 Mg/2 Ml Vial) 4 mg IVPUSH Q8H PRN PRN Reason: Nausea and Vomiting Pharmacy Consult (Consult Rx Perform Med Rec) 1 each MISCELLANE ONCE PRN PRN Reason: Consult order Pregabalin (Pregabalin 100 Mg Capsule) 100 mg PO TID [facility] Last Admin: 04/10/22 07:38 Dose: Not Given Documented By: SUZI Non-Admin Reason: NPO Sodium Chloride (0.9 % Sodium Chloride Flush 3 Ml Syringe) 3 ml IVFLUSH QSHIFT [facility] Last Admin: 04/10/22 07:31 Dose: Not Given Documented By: SUZI Non-Admin Reason: IV Running Labs 04/08/22 05:14 04/09/22 07:46 Labs: Laboratory Results - last 24 hr 04/09/22 07:46 Anion Gap 15 Estim Creat Clear Calc 85.9 Estimated GFR > 60 Random Glucose 96 Calcium 8.2 L D Microbiology Microbiology Results: Microbiology 04/08/22 00:42 Urine Culture - Final Urine clean catch - Urine cornejo top Proteus mirabilis 04/07/22 21:52 Blood Culture - Preliminary Blood - Venous No growth after 48 hours. 04/07/22 21:52 Blood Culture - Preliminary Blood - Venous No growth after 48 hours. 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 for evaluation of decreased mentation. #. Acute UTI:Treated in the hospital of Ceftriaxone, culture = Proteus mirabilis sensitive to Ceftriaxone and so will change to oral Ceftin at discharge #. Acute metabolic encephalopathy d/t uti, resolved #. Acute kidney injury, possible ATN, resolved. #. Acute Lactic acidosis, resolved with fluid resuscitation. Due to hypoperfusion and not due to severe sepsis #. HypOkalemia: Repleted and resolved #. History of CVA with right-sided deficits: On statin and Plavix, continue #. Hypernatremia : Treated with D5 1/2 NS #. Mood disorder: Continue home mood stabilizers #. Dysphagia, TIRE RETREADER eval before feeding, failed bedside swallow DNR/DNI. As per daughter who was present earlier in the ER NPO until mentation improves and TIRE RETREADER doesn, swallow eval until then IVF DVT prophylaxis: Lovenox 40 mg daily Need for inpatietn: acute UTI, metabolicn encephalopathy, dysphagia on ivf possible dc later today Time Spent With Patient Time: Total time managing care of this patient today ____ minutes. Quality Stroke Does the patient have a stroke diagnosis?: No VTE Prior VTE?: No VTE Risk Level:: Medical - moderate - high VTE Device Contraindication: Treatment Not Indicated VTE Drug Contraindication: N/A - Med Ordered
[2022-04-10] MEDS: Nystatin Powder 15 GM BOTTLE 1 APPL TOPICAL ×3 (08:46→20:55)
[2022-04-10 09:45] LABS: Anion Gap 12 (12-20); Blood Urea Nitrogen 4 mg/dL (9-16); Calcium 8.1 mg/dL (8.4-10.2); Carbon Dioxide 25 mmol/L (22-29); Chloride 109 mmol/L (96-108); Creatinine Clr Calc Pharmacy 93.7; Estimated Glomerular Filt Rate > 60; Glucose Random 175 mg/dL (60-115); Potassium 2.9 mmol/L (3.3-5.1); Sodium 143 mmol/L (135-145)
--- NOTE | 2022-04-10 12:18 | ECG_ITS ---
Test Reason : chest pain Blood Pressure : / mmHG Vent. Rate : 090 BPM Atrial Rate : 090 BPM P-R Int : 158 ms QRS Dur : 136 ms QT Int : 418 ms P-R-T Axes : 042 -19 117 degrees QTc Int : 511 ms Normal sinus rhythm Left bundle branch block Abnormal ECG When compared with ECG of 07-APR-2022 21:52, Left bundle branch block is now Present Referred By: Jonathan Lee Electronically Signed By:SONAM PETERSON
[2022-04-10 13:03] VITALS: BMI 23.2
--- NOTE | 2022-04-10 13:11 | MHC.CLN ---
NUTRITION CONSULT FOR SKIN INTEGRITY. SKIN WITH PRESSURE WOUNDS TO BILATERAL HEELS. CURRENTLY NPO. AWAITING BICYCLE COURIER REPORT FOR DIET RECOMMENDATIONS. APPEARS WELL NOURISHED. NPO SINCE 04/08. PER [facility], NO ARTIFICIAL NUTRITION, USE ARTIFICIAL HYDRATION. FOLLOW FOR DIET ADVANCEMENT, INTAKE AND WOUND HEALING.
--- NOTE | 2022-04-10 13:29 | MHC.SL.SWA ---
Speech Pathologist Impression: Oropharyngeal dysphagia Risk of Aspiration Due to: Neurological Condition Dysphasia Diet Status: Upgrade Liquid Consistency and Strategies for Safe Swallow: Liquid Intake Recommendation: Schaller Thick Liquid Intake Strategies: Small Sips No Straws Solid Food Consistency: Dietary Recommendations: Pureed (NDD1) Additional Modifications to Solid Foods: Pt w/ very limited participation in bedside swallow evaluation. Pt did accept sips of nectar thickened juice by controlled cup, which he tolerated well with no overt s/s of aspiration. MANAGER MARKETING SALES called and spoke with staff from [facility]. Pt is reportedly on a regular texture diet and nectar thickened liquid, pills whole with liquid. Pt requires assistance taking his pills (placing in mouth). Unable to trial solids today d/t pt's refusal to participate. Given underlying encephalopathy and limited evaluation, recommend start on PUREED (NDD1) solids as a precaution at this time with NECTAR THICKENED liquid and pills CRUSHED in PUREE. 1:1 supervision, as needed provide assistance, close 1:1 monitoring of tolerance, and strict aspiration precautions. Check oral cavity as needed. Hold tray if pt is lethargic or not attending to meal. Notified MD, RN, RD. MANAGER MARKETING SALES to re-evaluate tomorrow. Oral Medication Intake: Crushed with Puree Please contact the pharmacy regarding appropriate crushable or liquid drug formulations that are available whenever modified delivery is recommended. Compensatory Strategies and Precautions to be Taken for Safe Swallow: Sitting Upright (90 deg) No Straw Small Bites and Sips Rate of Ingestion Change Oral Check Supervision While Eating and Drinking for Safe Swallow: Total Supervision (1:1) Swallowing Recommended Treatments: Compens. Strategy Educat. Recommendation for Speech: Inpatient Speech Therapy Speech Therapy through Rehab Facility Hand Leather Trimmer Clinican/Clinical Fellow: No Supervisory Statement: I have reviewed and agree with the student/clinical fellow's documentation: N/A Speech Language Pathologist: Sarita Motta M.A., CCC-MANAGER MARKETING SALES
[2022-04-10] MEDS: Pregabalin 100 MG CAPSULE PO ×2 (15:05→20:44)
[2022-04-10 16:00] VITALS: BP 141/90; PULSE 100; RESP 16; TEMP 36.8; O2SAT 96
--- NOTE | 2022-04-10 16:36 | MHC.CM.PN ---
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
[2022-04-10] MEDS: hydrALAZINE HCl 25 MG TABLET PO ×2 (17:26→20:44)
[2022-04-10 19:34] VITALS: BP 125/76; PULSE 100; RESP 18; TEMP 36; O2SAT 92
[2022-04-10] MEDS: Metoprolol Tartrate 25 MG TABLET PO (20:44)
[2022-04-10] MEDS: Amitriptyline HCl 25 MG TABLET PO (20:45)
[2022-04-10] MEDS: cefTRIAXone sodium 1 GM in 0.9 % Sodium Chloride 50 ML IV (21:22)
[2022-04-10] MEDS: Baclofen 10 MG TABLET 30 MG PO (21:22)
[2022-04-11] MEDS: Acetaminophen 325 MG TABLET 650 MG PO (01:10)
[2022-04-11 04:00] VITALS: BP 121/78; PULSE 84; RESP 18; TEMP 36.2; O2SAT 94
[2022-04-11] MEDS: Enoxaparin Sodium 40 MG/0.4 ML SYRINGE SUBCUT (06:04)
[2022-04-11] MEDS: Dextrose 5 % and 0.45 % NaCl 1,000 ML 100 ML IVCONT (06:12)
[2022-04-11 07:17] VITALS: BP 115/74; PULSE 85; RESP 18; TEMP 36; O2SAT 94
[2022-04-11] MEDS: Pregabalin 100 MG CAPSULE PO ×3 (08:01→20:46)
[2022-04-11] MEDS: Atorvastatin Calcium 20 MG TABLET PO (08:01)
[2022-04-11] MEDS: Clopidogrel Bisulfate 75 MG TABLET PO (08:02)
[2022-04-11] MEDS: Baclofen 10 MG TABLET 30 MG PO ×3 (08:02→20:46)
[2022-04-11] MEDS: Lactulose 20 GM/30 ML SOLUTION 10 GM PO (08:02)
[2022-04-11] MEDS: Metoprolol Tartrate 25 MG TABLET PO ×2 (08:02→20:46)
[2022-04-11] MEDS: hydrALAZINE HCl 25 MG TABLET PO ×4 (08:02→20:46)
[2022-04-11] MEDS: Nystatin Powder 15 GM BOTTLE 1 APPL TOPICAL ×2 (08:04→16:13)
[2022-04-11 09:13] LABS: Magnesium 1.6 mg/dL (1.6-2.6); Potassium 2.9 mmol/L (3.3-5.1)
[2022-04-11] MEDS: Potassium Chloride/H20 10 MEQ/100 ML PIGGYBACK 100 MEQ IV ×2 (09:19→10:40)
[2022-04-11] MEDS: Potassium Chloride Packet 20 MEQ PACKET PO (09:19)
--- NOTE | 2022-04-11 10:35 | MHC.SL.SWA ---
Addendum entered and electronically signed by KATHIA Johnson 04/11/22 13:07: Addendum to today's DULSER Note: EXPERIMENTAL MACHINING LAB MANAGER sought DULSER at lunch meal because patient was coughing on liquids marked nectar thick from kitchen. When DULSER reached room, EXPERIMENTAL MACHINING LAB MANAGER had thickened liquids to a honey consistency, with patient drinking this consistency without incident. Out of an abundance of caution, recommend DOWNGRADE liquids to HONEY THICK, which DULSER did in diet orders, notified MD/RD by secure text. Original Note: Speech Pathologist Impression: Risk of Aspiration Due to: Neurological Condition Dysphasia Diet Status: Recommend continue on Puree (NDD1) with Fox Thick liquids, pills crushed in puree. Patient will continue to need supervision and some assistance during meal, he can independently feed self if handed cup and/or utensils. DULSER updated board in room with diet, recommending NO STRAWS at this time. Liquid Consistency and Strategies for Safe Swallow: Liquid Intake Recommendation: Fox Thick Liquid Intake Strategies: Small Sips No Straws Solid Food Consistency: Dietary Recommendations: Pureed (NDD1) Additional Modifications to Solid Foods: Patient will continue to need supervision and some assistance during meal, he can independently feed self if handed cup and/or utensils. Alternate liquids and solids. No straws. Add sauces and gravies to puree and blend well. Oral Medication Intake: Crushed with Puree Please contact the pharmacy regarding appropriate crushable or liquid drug formulations that are available whenever modified delivery is recommended. Compensatory Strategies and Precautions to be Taken for Safe Swallow: Sitting Upright (90 deg) Chin Tuck No Straw Liquids from Cup Small Bites and Sips Alternate Liquids/Solids Oral Check Supervision While Eating and Drinking for Safe Swallow: Total Supervision (1:1) Foods to Avoid: Very sticky, congealed purees. Swallowing Recommended Treatments: Compens. Strategy Educat. Recommendation for Speech: Inpatient Speech Therapy Speech Therapy through Rehab Facility Comment: Patient seen this a.m. for re-assessment of swallow, possible upgrade. Patient was awake and alert, had multiple drinks at bedside, mostly thickened (large container of water present at sink), all with straws in them. Patient had c/o hand pain from IV, communicated non verbally primarily with gestures (facial and pointing) and attempting some words, however patient appears to have aphonia. RN came to check on patient, communicated that the pain was from medication and would improve when IV completed. Patient appeared to consistently demonstrate comprehension, unable to verbalize though. Patient agreed to take sips of Fox Thick liquid by straw, evidenced difficulty with adequately producing suction to drink with straw. Patient given cup to drink from, when handed cup could independently drink, took reasonable sips of liquid. On swallows of NT liquid, patient was noted to have maladaptive oral phase, appeared to use tongue pumping to move bolus back and forth in mouth several times before initiating swallow, swallow initiated after mild delay, no clinical signs of aspiration. Patient agreed to repeat trial of puree, on bite of apple sauce, patient again exhibited an unusual oral prep of the bolus, moving it forward and back several times before propelling for swallow. On one trial, patient coughed on swallow repeatedly, but then appeared to clear from airway and re-swallow, and followed with sip of liquid, with patient evidencing no clinical signs of aspiration on further independent tsps of puree. Patient was offered bitesize pieces of a chicken salad sandwich to evaluate for soft solid texture, however patient waved all of this away, shaking head. Unable to assess for upgrade today due to patient's request. Recommend continue on Puree (NDD1) with Fox Thick liquids, pills crushed in puree. Patient will continue to need supervision and some assistance during meal, he can independently feed self if handed cup and/or utensils. DULSER updated board in room with diet, recommending NO STRAWS at this time. Frequency/Duration: Date Range for Service Req: Timeline to reassess: Environmental Protection Economist Clinican/Clinical Fellow: No Supervisory Statement: I have reviewed and agree with the student/clinical fellow's documentation: N/A Speech Language Pathologist: Yomaira Cifuentes M.A., CCC-DULSER
[2022-04-11 14:08] VITALS: BP 121/76; PULSE 81
--- NOTE | 2022-04-11 14:22 | PM.UROCN ---
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 ?Acute UTI:Treated in the hospital of Ceftriaxone, culture = Proteus mirabilis. ?Acute metabolic encephalopathy miguel improving as well. Urology called to evaluate scrotal lesion. On exam - Sebecious cyst on scrotal skin, nontender, no signs of infection, recommend conservative management, also on imaging, 2 mm Left non-obstructing renal stone- recommend observation, outpatient urology follow up. Review of Systems Review of Systems: ROS negative other than stated in [facility] Past Medical History Medical History CVA (cerebral vascular accident) Mixed hyperlipidemia Social History Social History Household Members: Unknown / Unable to assess Unable to assess alcohol history related to: Unknown Alcohol intake: former Patient Tobacco Use Status: Never used Tobacco Advance Directives Date on File: 01/16/22 service: No Current occupational status: disabled Meds Allergies Allergy/AdvReac Type Severity Reaction Status Date / Time No Known Allergies Allergy Verified 04/08/22 00:58 [No Known Allergies*] Active Medications: Current Medications Acetaminophen (Acetaminophen 325 Mg Tablet) 650 mg PO Q6H PRN PRN Reason: Pain, Mild (Pain Scale 1-3) Last Admin: 04/11/22 01:10 Dose: 650 mg Acetaminophen (Acetaminophen Supp 650 Mg Supp.Rect) 650 mg VT Q6H PRN PRN Reason: Pain, Mild (Pain Scale 1-3) Amitriptyline HCl (Amitriptyline Hcl 25 Mg Tablet) 25 mg PO BEDTIME [facility] Last Admin: 04/10/22 20:45 Dose: 25 mg Atorvastatin Calcium (Atorvastatin Calcium 20 Mg Tablet) 20 mg PO DAILY [facility] Last Admin: 04/11/22 08:01 Dose: 20 mg Baclofen (Baclofen 10 Mg Tablet) 30 mg PO TID [facility] Last Admin: 04/11/22 14:04 Dose: 30 mg Clopidogrel Bisulfate (Clopidogrel Bisulfate 75 Mg Tablet) 75 mg PO DAILY [facility] Last Admin: 04/11/22 08:02 Dose: 75 mg Enoxaparin Sodium (Enoxaparin Sodium 40 Mg/0.4 Ml Syringe) 40 mg SUBCUT Q24H [facility] Last Admin: 04/11/22 06:04 Dose: 40 mg Hydralazine HCl (Hydralazine Hcl 25 Mg Tablet) 25 mg PO QID [facility]; Protocol Last Admin: 04/11/22 14:04 Dose: 25 mg Ceftriaxone Sodium 1 gm/ (Sodium Chloride) 50 mls @ 100 mls/hr IV Q24H [facility] Last Infusion: 04/10/22 22:00 Dose: Infused Lactulose (Lactulose 20 Gm/30 Ml Solution) 10 gm PO DAILY [facility] Last Admin: 04/11/22 08:02 Dose: 10 gm Melatonin (Melatonin 3 Mg Tablet) 6 mg PO BEDTIME PRN PRN Reason: Insomnia Metoprolol Tartrate (Metoprolol Tartrate 25 Mg Tablet) 25 mg PO BID [facility]; Protocol Last Admin: 04/11/22 08:02 Dose: 25 mg Nystatin (Nystatin Powder 15 Gm Bottle) 1 appl TOPICAL TID [facility]; Protocol Last Admin: 04/11/22 08:04 Dose: 1 appl Ondansetron HCl (Ondansetron Hcl 4 Mg/2 Ml Vial) 4 mg IVPUSH Q8H PRN PRN Reason: Nausea and Vomiting Pharmacy Consult (Consult Rx Perform Med Rec) 1 each MISCELLANE ONCE PRN PRN Reason: Consult order Pregabalin (Pregabalin 100 Mg Capsule) 100 mg PO TID [facility] Last Admin: 04/11/22 14:04 Dose: 100 mg Sodium Chloride (0.9 % Sodium Chloride Flush 3 Ml Syringe) 3 ml IVFLUSH QSHIFT [facility] Last Admin: 04/11/22 06:59 Dose: Not Given Home Medications Medication Instructions Recorded Confirmed Last Taken Type acetaminophen 325 mg tablet 325 mg PO QID PRN Pain 04/08/22 04/08/22 Unknown History albuterol sulfate 90 mcg/actuation 2 puff inhalation Q4H PRN 04/08/22 04/08/22 Unknown History aerosol inhaler Shortness Of Breath amitriptyline 25 mg tablet 25 mg PO BEDTIME 04/08/22 04/08/22 Unknown History atorvastatin 20 mg tablet 20 mg PO DAILY 04/08/22 04/08/22 Unknown History baclofen 10 mg tablet 30 mg PO TID 04/08/22 04/08/22 Unknown History clopidogrel 75 mg tablet 75 mg PO DAILY 04/08/22 04/08/22 Unknown History hydralazine 25 mg tablet 1 tab PO QID 04/08/22 04/08/22 Unknown History lactulose 10 gram/15 mL oral 15 ml PO DAILY 04/08/22 04/08/22 Unknown History solution melatonin 5 mg tablet 5 mg PO BEDTIME PRN Insomnia 04/08/22 04/08/22 Unknown History metoprolol tartrate 25 mg tablet 25 mg PO BID 04/08/22 04/08/22 Unknown History nystatin 100,000 unit/gram topical 1 applic topical BID-TID 04/08/22 04/08/22 Unknown History powder (Nystop) oxycodone 5 mg tablet 1 tab PO 04/08/22 Unknown History oxymetazoline 0.05 % nasal mist 2 spray intranasal Q12H PRN Sinus 04/08/22 04/08/22 Unknown History (Afrin (oxymetazoline)) Symptoms pregabalin 100 mg capsule 100 mg PO TID 04/08/22 04/08/22 Unknown History Physical Exam Vital Signs: Vital Signs: Last Vital Signs Temp 96.8 F 04/11/22 07:17 Pulse 81 04/11/22 14:08 Resp 18 04/11/22 07:17 BP 121/76 04/11/22 14:08 Pulse Ox 94 04/11/22 07:17 O2 Del Method 04/11/22 07:17 O2 Flow Rate 4 04/08/22 10:46 Oxygen Flow Rate 6 04/07/22 21:28 BMI result Body Mass Index 23.2 Const: General: no acute distress and well developed HEENT: Head: Yes normocephalic and Yes atraumatic Eyes: Conjunctivae: conjunctivae normal Neck: Neck: Yes normal visual inspection Chest: Chest palpation & inspection: normal inspection of the chest Resp: Effort & Inspection: normal respiratory effort Cardio: Rate: regular rate GI: Inspection: Yes normal to inspection Palpation (GI): Soft to palpation : Other: Sebecious cyst on scrotal skin, nontender, no signs of infection, no significant swelling Penis: normal penis Skin: General skin exam: no rashes or lesions noted Extrem: General: No pedal edema Psych: Appearance: grossly normal Affect: normal affect Results Labs 04/08/22 05:14 04/11/22 08:12 Labs: Abnormal lab results 04/11/22 Range/Units 08:12 Potassium 2.9 L (3.3-5.1) mmol/L BMP 04/11/22 08:12 Potassium 2.9 L Urine 04/07/22 Range/Units 22:52 Urine Color Dark Yellow Urine Appearance Turbid Urine pH 5.5 (5.0-9.0) Ur Specific [place] 1.020 (1.005-1.025) Urine Protein 300 (3+) H (Neg-Trace) mg/dL Urine Glucose (UA) Negative (Negative) mg/dL Imaging Additional studies: Date of Service: 03/17/22 CT ABDOMEN AND PELVIS WITHOUT CONTRAST? CLINICAL INFORMATION: Pain of left lower quadrant.? COMPARISON: None? FINDINGS: LUNG BASES: Again observed is chronic thickening of bronchial morales and reticular and mild groundglass opacities of the visualized lower lobes. No pleural effusion. LIVER: Diffuse hepatic steatosis. GALLBLADDER AND BILIARY TREE: Gallbladder has multiple small calcified stones. No gallbladder wall thickening or pericholecystic fluid. No dilated bile ducts. PANCREAS: No edema, pancreatic ductal dilatation or mass.? SPLEEN: Normal.? ADRENAL GLANDS: Normal.? KIDNEYS AND URETERS: Kidneys are normal in size. 0.2 cm calyceal stone of the upper pole of the left kidney. No hydronephrosis. 1.2 cm simple cortical cyst of the posterior lower pole of the right kidney is unchanged. No renal imaging follow-up is recommended for simple cysts. The ureters are unremarkable. BLADDER:? Normal. No calculi or wall thickening. BOWEL AND PERITONEUM: There are a few metallic clips along the anterior wall of the gastric body. No dilated bowel loops. The appendix is normal. There are diverticula of the sigmoid colon without evidence of diverticulitis. No evidence of bowel wall thickening, mesenteric fat stranding or free fluid. No pneumoperitoneum. ABDOMINAL WALL: Chronic diastases of rectus abdominis muscles and small fat-containing umbilical hernia.? VASCULATURE: Atherosclerotic calcification of the abdominal aorta and iliac arteries without aneurysm. LYMPH NODES: No pathologic sized lymph nodes in the abdomen or pelvis. No inguinal lymphadenopathy. PELVIC VISCERA: Prostate gland is unremarkable. No pelvic free fluid. MUSCULOSKELETAL: Chronic partial osseous fusion between L3 and L4 vertebral bodies. No acute abnormalities in the degenerated lumbar spine. Bones appear to be diffusely osteoporotic. 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 Chronic atrophy, partial fatty replacement of paraspinal, gluteus and thigh muscles. IMPRESSION: *? No specific source of left lower quadrant pain is identified. No acute inflammatory change or obstruction along the gastrointestinal tract.? Diverticula of the sigmoid colon without diverticulitis. *? Cholelithiasis without cholecystitis. *? Diffuse hepatic steatosis. *? Chronic symmetric ankylosis of sacroiliac joints.? Assessment and Plan (1) Sebaceous cyst of scrotum: Status: Acute (2) UTI (urinary tract infection): Status: Acute (3) Chronic indwelling Ordonez catheter: Status: Acute (4) History of stroke: Status: Acute (5) Kidney stone on left side: Status: Acute Plan h/o stroke, urinary retention - may be secondary to neurogenic bladder chronic ordonez UTI - Proteus on IV abx. Sebecious cyst on scrotal skin, nontender, no signs of infection, recommend conservative management, observation 2 mm Left non-obstructing renal stone, recommend observation, outpatient urology follow up. Time Spent With Patient Time: Total time managing care of this patient today ____ minutes. Procedures Date of Service Date of Service: 04/11/22
--- NOTE | 2022-04-11 14:35 | P.PNIM_ITS ---
Subjective Subjective Date of Service: 04/11/22 Interval History: metabolic encephalopathy, UTI.? Hypernatremia,hypokalemia . Review of Systems ?nonverbal a baseline seems to be a with his baseline, no fevers Physical Exam Vital Signs: Vital Signs: Last Vital Signs Temp 96.8 F 04/11/22 07:17 Pulse 81 04/11/22 14:08 Resp 18 04/11/22 07:17 BP 121/76 04/11/22 14:08 Pulse Ox 94 04/11/22 07:17 O2 Del Method 04/11/22 07:17 O2 Flow Rate 4 04/08/22 10:46 Oxygen Flow Rate 6 04/07/22 21:28 BMI result Body Mass Index 23.2 Elderly male lying in bed in no distress Neck supple, no JVD Decreased breath sounds at bases Regular rate and rhythm Abdomen soft nontender, no guarding, no rigidity Patient is drowsy and only awakens to painful stimulus Neuro complete right sided weakness . No pedal edema Objective Data Active Medications Acetaminophen (Acetaminophen 325 Mg Tablet) 650 mg PO Q6H PRN PRN Reason: Pain, Mild (Pain Scale 1-3) Last Admin: 04/11/22 01:10 Dose: 650 mg Documented By: LILLIE Acetaminophen (Acetaminophen Supp 650 Mg Supp.Rect) 650 mg [place] Q6H PRN PRN Reason: Pain, Mild (Pain Scale 1-3) Amitriptyline HCl (Amitriptyline Hcl 25 Mg Tablet) 25 mg PO BEDTIME [facility] Last Admin: 04/10/22 20:45 Dose: 25 mg Documented By: LILLIE Atorvastatin Calcium (Atorvastatin Calcium 20 Mg Tablet) 20 mg PO DAILY [facility] Last Admin: 04/11/22 08:01 Dose: 20 mg Documented By: SUZI Baclofen (Baclofen 10 Mg Tablet) 30 mg PO TID [facility] [place] Last Admin: 04/11/22 14:04 Dose: 30 mg Documented By: SUZI Clopidogrel Bisulfate (Clopidogrel Bisulfate 75 Mg Tablet) 75 mg PO DAILY [facility] [place] Last Admin: 04/11/22 08:02 Dose: 75 mg Documented By: SUZI Enoxaparin Sodium (Enoxaparin Sodium 40 Mg/0.4 Ml Syringe) 40 mg SUBCUT Q24H [facility] [place] Last Admin: 04/11/22 06:04 Dose: 40 mg Documented By: LILLIE Hydralazine HCl (Hydralazine Hcl 25 Mg Tablet) 25 mg PO QID [facility] [place]; Protocol Last Admin: 04/11/22 14:04 Dose: 25 mg Documented By: SUZI Ceftriaxone Sodium 1 gm/ (Sodium Chloride) 50 mls @ 100 mls/hr IV Q24H [facility] [place] Last Infusion: 04/10/22 22:00 Dose: 0 mls/hr Documented By: LILLIE Lactulose (Lactulose 20 Gm/30 Ml Solution) 10 gm PO DAILY [facility] [place] Last Admin: 04/11/22 08:02 Dose: 10 gm Documented By: SUZI Melatonin (Melatonin 3 Mg Tablet) 6 mg PO BEDTIME PRN PRN Reason: Insomnia Metoprolol Tartrate (Metoprolol Tartrate 25 Mg Tablet) 25 mg PO BID [facility]; Protocol Last Admin: 04/11/22 08:02 Dose: 25 mg Documented By: SUZI Nystatin (Nystatin Powder 15 Gm Bottle) 1 appl TOPICAL TID [facility]; Protocol Last Admin: 04/11/22 08:04 Dose: 1 appl Documented By: SUZI Ondansetron HCl (Ondansetron Hcl 4 Mg/2 Ml Vial) 4 mg IVPUSH Q8H PRN PRN Reason: Nausea and Vomiting Pharmacy Consult (Consult Rx Perform Med Rec) 1 each MISCELLANE ONCE PRN PRN Reason: Consult order Pregabalin (Pregabalin 100 Mg Capsule) 100 mg PO TID [facility] [place] Last Admin: 04/11/22 14:04 Dose: 100 mg Documented By: SUZI Sodium Chloride (0.9 % Sodium Chloride Flush 3 Ml Syringe) 3 ml IVFLUSH QSHIFT [facility] Last Admin: 04/11/22 06:59 Dose: Not Given Documented By: SUZI Non-Admin Reason: IV Running Labs 04/08/22 05:14 04/11/22 08:12 Labs: Laboratory Results - last 24 hr 04/11/22 08:12 Magnesium 1.6 Assessment and Plan (1) Metabolic encephalopathy: Status: Acute (2) Acute UTI: Status: Acute Plan 72-year-old male with 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 Acute UTI:Treated in the hospital of Ceftriaxone, culture = Proteus mirabilis sensitive to Ceftriaxone and so will change to oral Ceftin at discharge Acute metabolic encephalopathy d/t uti, improving miguel improving as well as uti,repletin electrolytes. Acute kidney injury, possible ATN, resolved. Acute Lactic acidosis, resolved with fluid resuscitation. Due to hypoperfusion and not due to severe sepsis HypOkalemia: Repleted and moniter elctrolytes. 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 Need for inpatietn: acute UTI, hypokalemia, metabolic encephalopathy : need antibotics ,electrolytic replacements ,mental status moniterin Time Spent With Patient Time: Total time managing care of this patient today ____ minutes. Quality Stroke Does the patient have a stroke diagnosis?: No VTE Prior VTE?: No VTE Risk Level:: Medical - moderate - high VTE Device Contraindication: Treatment Not Indicated VTE Drug Contraindication: N/A - Med Ordered
[2022-04-11 15:33] VITALS: BP 123/79; PULSE 85; RESP 17; TEMP 36.1; O2SAT 94
[2022-04-11] MEDS: 0.9 % Sodium Chloride Flush 3 ML SYRINGE IVFLUSH ×2 (16:13→20:54)
[2022-04-11 19:54] VITALS: BP 126/80; PULSE 82; RESP 16; TEMP 36.5; O2SAT 94
[2022-04-11] MEDS: cefTRIAXone sodium 1 GM in 0.9 % Sodium Chloride 50 ML IV (20:45)
[2022-04-11] MEDS: Amitriptyline HCl 25 MG TABLET PO (20:46)
[2022-04-11] MEDS: Melatonin 3 MG TABLET 6 MG PO (20:47)
[2022-04-12] MEDS: Enoxaparin Sodium 40 MG/0.4 ML SYRINGE SUBCUT (05:54)
[2022-04-12 06:50] LABS: Potassium 3.2 mmol/L (3.3-5.1)
[2022-04-12 07:31] VITALS: BP 123/87; PULSE 84; RESP 18; TEMP 36.5; O2SAT 93
[2022-04-12] MEDS: 0.9 % Sodium Chloride Flush 3 ML SYRINGE IVFLUSH ×2 (09:13→14:23)
[2022-04-12] MEDS: Metoprolol Tartrate 25 MG TABLET PO (09:13)
[2022-04-12] MEDS: Pregabalin 100 MG CAPSULE PO ×2 (09:13→14:22)
[2022-04-12] MEDS: Baclofen 10 MG TABLET 30 MG PO ×2 (09:14→14:22)
[2022-04-12] MEDS: hydrALAZINE HCl 25 MG TABLET PO ×2 (09:14→14:22)
[2022-04-12] MEDS: Potassium Chloride Packet 20 MEQ PACKET PO (09:14)
[2022-04-12] MEDS: Atorvastatin Calcium 20 MG TABLET PO (09:14)
[2022-04-12] MEDS: Magnesium Oxide 400 MG TABLET PO (09:15)
[2022-04-12] MEDS: Nystatin Powder 15 GM BOTTLE 1 APPL TOPICAL (09:15)
[2022-04-12] MEDS: Clopidogrel Bisulfate 75 MG TABLET PO (09:15)
--- NOTE | 2022-04-12 11:14 | MHC.CLN ---
F/U REVIEW OF SKIN ASSESSMENTS SHOWS STAGE I REDNESS TO BUTTOCKS. NO PRESSURE INJURY TO BILATERAL HEELS NOTED. SEEN BY LEAF TINNER WITH DIET REC FOR PUREE WITH HONEY THICK LIQUIDS. PO INTAKE POOR, 0-25%. PER MOLST, NO ARTIFICIAL NUTRITION, USE ARTIFICIAL HYDRATION. FOLLOW FOR DIET TOLERANCE/ADVANCEMENT AND INTAKE.
--- NOTE | 2022-04-12 11:23 | P.DS_ITS ---
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 Unable to obtain any history from the patient.? History obtained from chart review and ER provider.? As per the records, patient is awake, alert and follows commands at baseline.? He is nonambulatory at baseline.? Patient was found to be lethargic with decreased responsiveness and hence was sent to the ER for further evaluation.? Unable to obtain review of systems.? In the emergency department, urine was concerning for UTI.? He was resuscitated with IV crystalloids and given empiric IV antibiotics. Hospital course: Patient admitted for UTI started on IV ceftriaxone-patient seems to be improvi ng, mental status is at his baseline, switched to p.o. Ceftin upon discharge. urine culture = Proteus mirabilis sensitive to Ceftriaxone and so will change to oral Ceftin at discharge Please complete the course of antibiotics. CHRIS, hyponatremia probably related to dehydration seems to be improved significantly with hydration and supportive care. Hypokalemia probably related to decreased p.o. intake repleted and seems to be improving. Added limited potassium supply upon discharge , please monitor renal function and electrolytes outpatient. In addition speech and Swallow so the patient recommended pureed diet. 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 consider repeat speech swallow follow up in rehab. Sebecious cyst on scrotal skin, nontender, no signs of infection, recommend conservative management, observation- if new changes ,consider outpatient urology follow up. Assessment and plan coordination time spent 50 minute. Time Spent with Patient Time attestation: Total time managing care of this patient today ____ minutes. Discharge coordination time: Greater than 30 minutes Quality: Safe Use of Opioids Does Pt have an Active Cancer Diagnosis on the Problem List?: No Quality: Stroke Does the patient have a stroke diagnosis?: No Physical Exam Vital Signs: Vital Signs: Last Vital Signs Temp 97.7 F 04/12/22 07:31 Pulse 84 04/12/22 07:31 Resp 18 04/12/22 07:31 BP 123/87 04/12/22 07:31 Pulse Ox 93 04/12/22 07:31 O2 Del Method 04/12/22 07:31 O2 Flow Rate 4 04/08/22 10:46 Oxygen Flow Rate 6 04/07/22 21:28 BMI result Body Mass Index 23.2 ?Elderly male lying in bed in no distress Neck supple, no JVD Decreased breath sounds at bases Regular rate and rhythm Abdomen soft nontender, no guarding, no rigidity. Patient is drowsy and only awakens to painful stimulus Neuro complete right sided weakness . No pedal edema DS: Data Data Completed and Pending Labs on day of discharge: Laboratory Results - last 24 hr 04/12/22 05:31 Potassium 3.2 L Preliminary micro results at discharge 04/07/22 21:52 Blood Culture - Preliminary Blood - Venous No growth after 48 hours. 04/07/22 21:52 Blood Culture - Preliminary Blood - Venous No growth after 48 hours. Imaging Chest x-ray: Radiologist's impression: ITS Impressions Chest X-Ray 04/07/22 21:45 IMPRESSION: No acute pulmonary disease. Head CT 04/07/22 22:18 IMPRESSION: No acute intracranial pathology. Chronic volume loss with small vessel ischemic change. Scrotum Ultrasound 04/08/22 08:08 IMPRESSION: Limited exam. No testicular or scrotal abnormality seen. Palpable abnormality appears to correspond to an echogenic area with acoustic shadowing superior to the right scrotum and just deep to the skin measuring 1.1 x 0.8 x 1.6 cm. Discharge Plan Discharge Anticipated Discharge Date/Time: 04/12/22 11:15 Patient Disposition: Home Health Service Discharge Diagnosis: uti,chris, hyponatremia, hypokalemia. Referrals: Hamlet Nance MD [Primary Care Provider] - 1 Week Discharge Medications: New cefuroxime axetil 500 mg tablet 500 mg PO BID Qty: 6 0RF Continued acetaminophen 325 mg Tablet 325 mg PO QID PRN (Reason: Pain) atorvastatin 20 mg tablet 20 mg PO DAILY hydralazine 25 mg tablet 1 tab PO QID clopidogrel 75 mg tablet 75 mg PO DAILY amitriptyline 25 mg tablet 25 mg PO BEDTIME baclofen 10 mg tablet 30 mg PO TID nystatin [Nystop] 100,000 unit/gram powder 1 applic topical BID-TID oxycodone 5 mg tablet 1 tab PO Afrin (oxymetazoline) 0.05 % Mist 2 spray INTRANASAL Q12H PRN (Reason: Sinus Symptoms) metoprolol tartrate 25 mg tablet 25 mg PO BID lactulose 10 gram/15 mL solution 15 ml PO DAILY pregabalin 100 mg capsule 100 mg PO TID melatonin 5 mg Tablet 5 mg PO BEDTIME PRN (Reason: Insomnia) albuterol sulfate 90 mcg/actuation Hfa Aerosol Inhaler 2 puff INHALATION Q4H PRN (Reason: Shortness Of Breath) Discharge Orders: Discharge Order (Routine); Ordered 04/12/22 Ordered By: Carolee Garcia Diet: Advance to usual diet Activity on Discharge: As tolerated Stand Alone Forms: Patient Portal Discharge page Care Plan Goals: Patient admitted for UTI started on IV ceftriaxone-patient seems to be improving, mental status is at his baseline, switched to p.o. Ceftin upon discharge. Please complete the course of antibiotics. CHRIS, hyponatremia probably related to dehydration seems to be improved significantly with hydration and supportive care. Hypokalemia probably related to decreased p.o. intake repleted and seems to be improving. Added limited potassium supply upon discharge , please monitor renal function and electrolytes outpatient. In addition speech and Swallow so the patient recommended pureed diet. Health Concerns: As above. Plan of Treatment: As above. Assessment: As above.
--- NOTE | 2022-04-12 12:52 | MHC.CM.PN ---
CM CONTACTED TO [facility]TR [facility] AT NUMBER ON FILE FOR DELIVERY OF IMM, [facility] IS AGREEABLE TO D/C PLAN FOR PT TO RETURN TO [facility] FOR LTC VIA [facility] FOR BLS TRANSPORT
--- NOTE | 2022-04-12 13:42 | MHC.SL.SWA ---
Addendum entered and electronically signed by Sarita Motta MA, [facility]-CONFIGURATION MANAGEMENT ADMINISTRATOR 04/12/22 17:04: D.S. Original Note: Speech Pathologist Impression: Oropharyngeal Dysphagia Risk of Aspiration Due to: Neurological Condition Dysphasia Diet Status: Recommend UPGRADE to CHOPPED/ADVANCED solids and NECTAR THICK liquids. Continue with pills crushed in puree. Patient will continue to need supervision and some assistance during meal, he can independently feed self if handed cup and/or utensils. CONFIGURATION MANAGEMENT ADMINISTRATOR updated board in room with diet, recommending NO STRAWS at this time. Liquid Consistency and Strategies for Safe Swallow: Liquid Intake Recommendation: [place] Thick Liquid Intake Strategies: Small Sips No Straws Solid Food Consistency: Dietary Recommendations: Chopped/Advanced (NDD3) Additional Modifications to Solid Foods: Patient will continue to need supervision and some assistance during meal, he can independently feed self if handed cup and/or utensils. Alternate liquids and solids. No straws. Add sauces and gravies to solids. Oral Medication Intake: Crushed with Puree Please contact the pharmacy regarding appropriate crushable or liquid drug formulations that are available whenever modified delivery is recommended. Compensatory Strategies and Precautions to be Taken for Safe Swallow: Sitting Upright (90 deg) Chin Tuck No Straw Liquids from Cup Small Bites and Sips Alternate Liquids/Solids Oral Check Supervision While Eating and Drinking for Safe Swallow: Total Supervision (1:1) Foods to Avoid: Sticky, tough to chew, dry solids Swallowing Recommended Treatments: Compens. Strategy Educat. Recommendation for Speech: Inpatient Speech Therapy Speech Therapy through Rehab Facility Lubrication Equipment Servicer Clinican/Clinical Fellow: Yes: Priti Concepcion M.A., CF-CONFIGURATION MANAGEMENT ADMINISTRATOR
[2022-04-12 15:03] LABS: IDNOW Serial# BCCEAD1C
[2022-04-12 15:04] LABS: COVID-19 Test Negative (Negative)
[2022-04-12 15:07] VITALS: BP 114/72; PULSE 83; RESP 16; TEMP 36; O2SAT 96
== END 2022-04-12 16:17 | disposition skilled nursing facility (03) | DRG 689 ==
LOC: HO.ED 04-08 00:12 → HO.EDOVER 04-08 01:19 → HO.S3 04-08 15:54
PROVIDERS: Internal Medicine; Admitting Provider Student in an Organized Health Care Education/Training Program; Emergency Provider Emergency Medicine; PCP Family Medicine; Visit Provider Internal Medicine
DX: N39.0 Urinary tract infection, site not specified (principal); G93.41 Metabolic encephalopathy; N17.0 Acute kidney failure with tubular necrosis; G81.91 Hemiplegia, unspecified affecting right dominant side; E87.21 Acute metabolic acidosis; E87.0 Hyperosmolality and hypernatremia; E87.6 Hypokalemia; F39 Unspecified mood [affective] disorder; L72.3 Sebaceous cyst; B96.4 Proteus (mirabilis) (morganii) as the cause of diseases classified elsewhere; R13.10 Dysphagia, unspecified; E78.2 Mixed hyperlipidemia; Z66 Do not resuscitate; Z96.0 Presence of urogenital implants; Z20.822 Contact with and (suspected) exposure to COVID-19; Z79.02 Long term (current) use of antithrombotics/antiplatelets; Z79.899 Other long term (current) drug therapy
CPT/HCPCS: 36415; 70450; 71045; 76870; 80048; 80076; 80307; 81001; 81003; 82803; 83605; 83690; 83735; 83880; 84132; 84443; 84484; 85025; 85610; 87040; 87086; 87088; 87186; 87502; 87635; 92526; 92610; 93005; 99285; C1758; J0696; J1650

== ENCOUNTER 2022-06-23 10:26 | Outpatient (REF) | payer MEDICARE, MEDICAID, SELFPAY ==
--- NOTE | ~2022-06-23 | FL_ITS ---
EXAMINATION: MODIFIED BARIUM SWALLOW CLINICAL INFORMATION: Evaluate esophageal function. COMPARISON: None available. TECHNIQUE: Modified barium swallow was performed in lateral fluoroscopy projection in presence of speech therapist with various consistencies of barium. FINDINGS: On oral administration of thin barium there is gopal laryngeal penetration and aspiration seen with a straw. On oral administration of barium pudding and crackers with barium there is normal oral mastication and propagation of bolus from the oral cavity through the pharynx into the esophagus. No retention of barium seen in the valleculae or piriform sinuses. FLUOROSCOPY TIME: 2.3 minutes. DOSE AREA PRODUCT: 2.351 Gy.cm2 FL/FL barium swallow modified IMPRESSION: Gopal laryngeal aspiration with thin barium. There is no retention or barium aspiration with barium coated pudding and solid food. Correlate with speech therapy results.
--- NOTE | 2022-06-23 12:35 | MHC.SL.IMP ---
Date of Plan of Treatment: 06/23/22 Onset of Symptoms/Illness: 06/23/22 Date Treatment Started: 06/23/22 Admitting Diagnosis: L-MCA CVA (s/p 2014) Primary Speech & Language Diagnosis: R13.12 Oropharyngeal Phase Dysphagia Secondary Speech & Language Diagnosis: R47.01 Aphasia Reason for Today's Visit: [id number] Modified Barium Swallow Study Comments: Pre-evaluation Dietary Consistencies: Chopped/Advanced (NDD3) Pre-evaluation Liquid Consistency: Thin Pre-evaluation Medication Administration: Crushed with Puree Medical History: Stroke Is patient able to manage secretions?: Yes Is patient able to produce volitional cough?: Yes Food and Liquid Trials: Oral Impairment: Lip Closure: 4=Escape beyond mid-chin Oral Impairment: Tongue Control During Bolus Hold: 2=Posterior escape of less than half of bolus Oral Impairment: Bolus Preparation/Mastication: 3=Minimal chewing/mashing with majority of bolus unchewed Oral Impairment: Bolus Transport/Lingual Motion: 2=Slowed tongue motion Oral Impairment: Oral Residue: 3=Majority of bolus remaining Oral Impairment:Initiation of Pharyngeal Swallow: 4=No visible initiation at any location Pharyngeal Impairment: Soft Palate Elevation: 0=No bolus between soft palate (SP)/pharyngeal wall (PW) Pharyngeal Impairment: Laryngeal Elevation: 1=Partial thyroid cartilage/arytenoids to epiglottic petiole movement Pharyngeal Impairment: Anterior Hyoid Excursion: 1=Partial anterior movement Pharyngeal Impairment: Epiglottic Movement: 1=Partial inversion Pharyngeal Impairment: Laryngeal Vestibular Closure:: 2=None: No inversion Pharyngeal Impairment: Pharyngeal Stripping Wave: 0=Present: complete Pharyngeal Impairment: Pharyngeal Contraction: Did not test Pharyngeal Impairment: Pharyngoesophageal Segment Openin=Partial distention/partial duration: partial obstruction of flow Pharyngeal Impairment: Tongue Base (TB) Retraction: 2=Narrow column of contrast/air between TB and posterior PW Pharyngeal Impairment: Pharyngeal Residue: 2=Collection of residue within or on pharyngeal structures Pharyngeal Impairment: Esophageal Clearance Upright Position: Did not test Impressions and Recommendations Clinical Observations: COVID-19 Positive: Unknown Current (pre-evaluation) Intake/Diet: Pre-Study Functional Oral Intake Scale (FOIS): 6- Total oral intake with no special preparation, but must avoid specific foods or liquid items MBSImP ID: [id number] Results: Lip closure for intraoral bolus containment resulted in bolus escape beyond mid-chin. Tongue control during bolus hold resulted in posterior escape of less than half of the bolus. Bolus preparation and mastication was only minimal chewing/mashing, with the majority of the bolus unchewed. Bolus transport/lingual motion was with slowed tongue motion. Oral residue was the majority of the bolus. Initiation of the pharyngeal swallow was not visible at any level. Soft palate elevation resulted in no bolus between the soft palate and the pharyngeal wall. Laryngeal elevation was decreased, with partial superior movement of the thyroid cartilage/partial approximation of the arytenoids to the epiglottic petiole. Anterior hyoid excursion demonstrated partial anterior movement. Epiglottic movement resulted in partial inversion. Laryngeal vestibular closure was absent, resulting in a wide column of air/contrast within the laryngeal vestibule at the height of the swallow. Pharyngeal stripping wave was present and complete. Pharyngeal contraction could not be determined due to logistical reasons not related to physiologic impairment. Pharyngoesophageal segment opening demonstrated partial distension/partial duration, with partial obstruction of bolus flow. Tongue base retraction allowed a narrow column of contrast or air between the retracted tongue base and the posterior pharyngeal wall. Pharyngeal residue was a collection of residue within or on pharyngeal structures. Esophageal clearance in the upright position could not be assessed due to logistical reasons not related to physiologic impairment. Oral Impairment Score: 18 Pharyngeal Impairment Score: 10 (absence of score, component 13) Esophageal Impairment Score: --- (absence of score, component 17) Laryngeal Penetration and Aspiration: Aspiration was observed in today's study. Thin Contrast entered the airway, passed below the vocal folds, and was not ejected from the trachea despite effort. Liquid Intake Recommendation: [place] Thick Liquid Intake Strategies: Small Sips No Straws Dietary Recommendations: Chopped/Advanced (NDD3) Medication Administration: Crushed with Puree Please contact the pharmacy regarding appropriate crushable or liquid drug formulations that are available whenever modified delivery is recommended. Compensatory Strategies Recommended: Sitting Upright (90 deg) No Straw Liquids from Cup Small Bites and Sips Rate of Ingestion Change Avoid Specific Foods Supervision during eating and or drinking: Total Supervision (1:1) Recommended Treatments: Compens. Strategy Educat. Recommendation for Speech Therapy: Speech Therapy through Rehab Facility Text Comment: [place]o tracheal aspiration on Thin Liquids administered via Straw was observed. He had passed with Thin Liquids via Spoon, and self-administered small sip prior to that. Puree and Advanced Solids resulted in oral and pharyngeal residue after the swallow. Pt CIRCUIT TESTER from his LTC was present at the time of the study, Pt has a long history of coughing with thin liquids. This has been addressed by the facility and she reports that the Pt has signed a waiver that he is aware of the consequences of him continuing to drink thin liquids. This material is not with him at the time of the study. Should the patient continue to drink Thin Liquids the results of today's study show that he is a very high risk of aspiration pneumonia given his age and limited mobility. Precautions in the this case would include optimal positioning out of bed for all PO intake, avoid straws, small bites/sips, and rigorous oral care to prevent oral bacteria from being aspirated. Additionally, some facilities are able to offer a free water protocol , wherein a Pt is provided [place]-Thick Liquids with meals, but offered Thin Liquids between meals with the above mentioned precautions in place. Ultimately, decision regarding medical care are up to the patient, his health care proxy and medical team. Timeline to reassess: PRN Paraeducator Clinician/Clinical Fellow: No Supervisory Statement: N/A Speech Language Pathologist: Xavier Lopez M.A., CCC-DIGITAL ASSOCIATE MEDIA DIRECTOR
== END 2022-06-23 10:27 | disposition home or self-care (01) ==
LOC: HO.XRAY 10:26
PROVIDERS: PCP Family Medicine; Visit Provider Physician Assistant Medical
DX: R47.01 Aphasia (principal)
CPT/HCPCS: 74230; 92611

== ENCOUNTER 2022-08-13 11:17 | Inpatient (IN) | payer MEDICARE, MEDICAID, SELFPAY ==
[2022-08-13] VITALS (14 sets, daily range): BP systolic 77–120; BP diastolic 47–78; PULSE 88–130; RESP 16–28; TEMP 36.4–39.3; O2SAT 91–99; BMI 28.2
--- NOTE | ~2022-08-13 | US_ITS ---
EXAMINATION: US VENOUS ULTRASOUND WITH DOPPLER LOWER EXTREMITY, RIGHT CLINICAL INFORMATION: Right leg pain and swelling. COMPARISON: Right lower extremity venous ultrasound dated 05/04/2017. TECHNIQUE: Ultrasound of the deep veins is performed from the hip to the calf with compression sonography and color and pulse Doppler assessment. Spectral analysis with color-flow imaging is performed. FINDINGS: There is normal venous compression and respiratory variation and augmented flow. The visualized common femoral vein, superficial femoral vein, profunda femoral vein, popliteal vein, and the trifurcation region shows no evidence of deep venous thrombosis. There is no significant popliteal fossa cyst. If the patient's symptoms persist, followup ultrasound in 5 days 7 days might be of value to exclude proximal propagation from a non-visualized calf vein. US/US venous duplex LE RT IMPRESSION: No DVT demonstrated in the right lower extremity.
--- NOTE | ~2022-08-13 | XR_ITS ---
EXAMINATION: XR CHEST CLINICAL INFORMATION: Shortness of breath COMPARISON: 08/13/2022 TECHNIQUE: Frontal view of the chest was obtained. FINDINGS: Lung volumes are symmetric. In comparison to the prior examination there are new airspace opacities in the mid to lower right lung. Diffuse interstitial prominence is redemonstrated. No evidence of pneumothorax. Small right pleural effusion suspected. Cardiomediastinal silhouette appears grossly unremarkable for technique. No acute osseous findings are seen. XR/XR chest 1V IMPRESSION: New airspace opacities in the mid to lower right lung, which may be due to pneumonia versus asymmetric edema in the proper clinical setting. Small right pleural effusion suspected.
--- NOTE | ~2022-08-13 | CT_ITS ---
EXAMINATION: CT ABDOMEN AND PELVIS WITHOUT CONTRAST CLINICAL INFORMATION: 72-year-old male with left lower quadrant abdominal pain and lethargy COMPARISON: 03/17/2022 TECHNIQUE: Multidetector volumetric imaging was performed from the superior aspect of the liver through the pubic symphysis. Sagittal and coronal reformatted images were obtained on the technologist's workstation. This CT examination was performed using dose optimization techniques as appropriate, variously including the following: *Automated exposure control *Adjustment of mA and/or kV according to patient size (this includes techniques or standardized protocols for targeted exams where dose is matched to indication/reason for exam; i.e. extremities or head) *Use of iterative reconstruction technique DLP: 872 mGy-cm FINDINGS: Examination is limited due to respiratory motion and noncontrast technique. LUNG BASES: There are bibasilar, groundglass opacities, possibly pneumonia. Visualized heart is unremarkable. There are mild coronary artery calcifications. No pericardial or pleural effusion LIVER, GALLBLADDER, AND BILIARY TREE: Liver is homogeneous without masses or ductal dilatation. Gallbladder distended with small multiple stones CBD is not dilated without evidence of choledocholithiasis. PANCREAS: Unremarkable. SPLEEN: Spleen is mildly enlarged measured 13.4 cm. ADRENAL GLANDS: Unremarkable. KIDNEYS AND URETERS: The kidneys are normal in size, shape, and attenuation. No hydronephrosis, hydroureter, or calculi seen. No perinephric stranding. BLADDER: Unremarkable. GASTROINTESTINAL TRACT: The small and large bowel are unremarkable. The appendix is unremarkable. There are changes of colonic diverticulosis without diverticulitis. ABDOMINAL WALL: There is small fat-containing umbilical hernia. LYMPH NODES: Normal. VASCULAR: Unremarkable. PELVIC VISCERA: Unremarkable. OSSEOUS STRUCTURES: There is ankylosis of sacroiliac joints and chronic fusion of L3-L4 the diffuse osteopenia There is fatty replacement of gluteal muscles due to atrophy. CT/CT abdomen pelvis wo IV con IMPRESSION: 1. Cholelithiasis without cholecystitis. 2. Diverticulosis without diverticulitis. 3. Mild splenomegaly. 4. Bibasilar groundglass opacities, possibly pneumonia. 5. 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 Correlate with clinical history of ankylosing spondylitis. 6. Fatty replacement of gluteal muscles. 7. Small fat-containing umbilical hernia. Fleischner guidelines were followed.
--- NOTE | ~2022-08-13 | XR_ITS ---
EXAMINATION: XR CHEST CLINICAL INFORMATION: Fever COMPARISON: Chest x-ray on 04/07/2022 TECHNIQUE: Frontal view of the chest was obtained. FINDINGS: The cardiac silhouette is normal. There is mild diffuse bronchial wall thickening. There are no areas of consolidation. There are no pleural effusions or pneumothoraces. The bones and soft tissues are unremarkable for the patient's age. XR/XR chest 1V IMPRESSION: Bronchial wall thickening may be infectious and/or inflammatory in etiology.
--- NOTE | 2022-08-13 11:30 | ECG_ITS ---
Test Reason : TACHY Blood Pressure : / mmHG Vent. Rate : 125 BPM Atrial Rate : 125 BPM P-R Int : 140 ms QRS Dur : 078 ms QT Int : 292 ms P-R-T Axes : 062 027 022 degrees QTc Int : 421 ms Sinus tachycardia Otherwise normal ECG When compared with ECG of 10-APR-2022 12:29, Left bundle branch block is no longer Present Referred By: Gianna Yeboah Electronically Signed By:SONAM PETERSON
--- NOTE | 2022-08-13 11:33 | ED.GENADULT ---
HPI - General Adult General Chief complaint: General Medical Stated complaint: LETHARGIC Time Seen by Provider: 08/13/22 11:25 Source: patient, EMS and old records reviewed Mode of arrival: EMS Limitations: altered mental status History of Present Illness HPI narrative: 72-year-old male with pertinent history of CVA with right hemiparesis, aphasia, mood disorder, patient was sent from residential for evaluation of increased lethargy and decreased mental status and having fever this morning. Patient is bedridden, nonverbal at baseline sent from residential for further evaluation of fever. Patient has no complaint at this point except chronic right-sided body ache the patient take oxycodone regularly for it. Related Data Home Medications Medication Instructions Recorded Confirmed acetaminophen 325 mg tablet 650 mg PO Q4H PRN Pain 04/08/22 08/13/22 albuterol sulfate 90 mcg/actuation 2 puff inhalation Q4H PRN 04/08/22 08/13/22 aerosol inhaler Shortness Of Breath amitriptyline 25 mg tablet 25 mg PO BEDTIME 04/08/22 08/13/22 atorvastatin 20 mg tablet 20 mg PO BEDTIME 04/08/22 08/13/22 baclofen 10 mg tablet 30 mg PO TID 04/08/22 08/13/22 clopidogrel 75 mg tablet 75 mg PO DAILY 04/08/22 08/13/22 hydralazine 25 mg tablet 1 tab PO Q6H PRN Increased Blood 04/08/22 08/13/22 Pressure lactulose 10 gram/15 mL oral 30 ml PO Q2D PRN Constipation 04/08/22 08/13/22 solution melatonin 5 mg tablet 5 mg PO BEDTIME 04/08/22 08/13/22 metoprolol tartrate 25 mg tablet 25 mg PO BID 04/08/22 08/13/22 nystatin 100,000 unit/gram topical 1 applic topical Q8H PRN Rash 04/08/22 08/13/22 powder (Nystop) oxycodone 5 mg tablet 1 tab PO Q6H PRN Pain 04/08/22 08/13/22 oxymetazoline 0.05 % nasal mist 1 spray intranasal Q12H PRN Sinus 04/08/22 08/13/22 (Afrin (oxymetazoline)) Symptoms pregabalin 100 mg capsule 100 mg PO TID 04/08/22 08/13/22 bethanechol chloride 25 mg tablet 25 mg PO TID 08/13/22 08/13/22 bisacodyl 10 mg rectal suppository 10 mg IA DAILY PRN Constipation 08/13/22 08/13/22 gabapentin 100 mg capsule 100 mg PO BID 08/13/22 08/13/22 guaifenesin 100 mg/5 mL oral liquid 200 mg PO Q4H PRN Cold Symptoms 08/13/22 08/13/22 ipratropium 0.5 mg-albuterol 3 mg 3 ml inhalation Q4H PRN Shortness 08/13/22 08/13/22 (2.5 mg base)/3 mL nebulization Of Breath soln sennosides 8.6 mg tablet (senna) 8.6 mg PO DAILY PRN Constipation 08/13/22 08/13/22 sennosides 8.6 mg-docusate sodium 1 tab-cap PO BID 08/13/22 08/13/22 50 mg tablet (Senna Plus) sodium chloride 0.65 % nasal spray 1 spray intranasal Q8H PRN Dry 08/13/22 08/13/22 aerosol (Saline Nasal) Nasal Passages sodium phosphates 19 gram-7 118 ml IA DAILY PRN Constipation 08/13/22 08/13/22 gram/118 mL enema (Enema) tamsulosin 0.4 mg capsule 0.8 mg PO DAILY 08/13/22 08/13/22 Allergies Allergy/AdvReac Type Severity Reaction Status Date / Time No Known Allergies Allergy Verified 04/08/22 00:58 [No Known Allergies*] Review of Systems Review of Systems: All other systems are reviewed and are negative Constitutional: Reports as per HPI and Reports no additional constitutional complaints Eyes: Reports as per HPI and Reports no additional eye complaints Reports system reviewed and no additional complaints, except as documented Cardiovascular: Reports as per HPI and Reports no additional cardiovascular complaints Respiratory: Reports as per HPI and Reports no additional respiratory complaints Gastrointestinal: Reports as per HPI and Reports no additional gastrointestinal complaints Genitourinary: Reports no additional female genitourinary complaints Musculoskeletal: Reports no additional musculoskeletal complaints Skin/Breast: Reports system reviewed and no additional complaints, except as docu Psychiatric: Reports no additional psychiatric complaints Endocrine: Reports no additional endocrine complaints Hematologic/Lymphatic: Reports no additional hematologic/lymphatic complaints Allergic/Immunologic: Reports no additional allergic/immunologic complaints Reports system reviewed and no additional complaints, except as documented and Reports Abnormal speech present [facility] Past Medical History Medical History CVA (cerebral vascular accident) Mixed hyperlipidemia Social History Social History Household Members: Unknown / Unable to assess Unable to assess alcohol history related to: Unknown Alcohol intake: former Patient Tobacco Use Status: Never used Tobacco Advance Directives: Yes Advance Directives on File: Yes Advance Directives Date on File: 01/16/22 service: No Current occupational status: disabled Physical Exam ED Vital Signs: Vital Signs - 24 hr 08/13/22 11:31 08/13/22 12:43 08/13/22 14:24 Temperature 102.7 F H 100.9 F H 98.3 F Pulse Rate 123 H 130 H 104 H Respiratory Rate 24 H 28 H 18 Blood Pressure 116/68 115/71 80/49 L Pulse Oximetry 94 91 L 96 Oxygen Delivery Method Room Air Room Air Nasal Cannula Oxygen Flow Rate 2 08/13/22 15:14 08/13/22 15:31 Temperature Pulse Rate 101 H 96 Respiratory Rate 18 Blood Pressure 77/47 L 89/58 L Pulse Oximetry 99 Oxygen Delivery Method Nasal Cannula Oxygen Flow Rate 2 BMI result Body Mass Index 28.2 Vital signs have been reviewed as appeared to be correct. Blood pressure normal. Heart rate normal. Respiration rate normal. Temperature normal. Oxygen saturation normal. Appearance: Alert. . No acute distress. Head: Normal external exam. Normocephalic. Atraumatic. No Collazo signs noted. No raccoon eyes noted Eyes: PERRLA. EOMI. Conjunctiva and sclera normal. Eyelids normal. ENT: TM's Normal. Pharynx normal. Uvula midline. Moist mucous membranes. No trismus noted. No drooling noted. No muffled voice noted. Neck: Normal inspection. Neck supple. FROM. No adenopathy. Thyroid Normal. No meningeal signs. No neck mass noted. CVS: Normal heart rate and rhythm. Heart sound normal. No murmurs noted. Pulses normal throughout. Respiratory: No respiratory distress. Painless inspiration. Breath sounds normal. No wheezes/rales/rhonchi noted. Chest nontender. No accessory muscle usage noted or decreased air movement noted. Abdomen: Soft, left lower quadrant tenderness with no rebound tenderness or guarding.. Bowel sounds normal in all 4 quadrants. No distention noted. No organomegaly noted. No visible injury noted. Back: No CVA tenderness. Full range of motion noted. Skin: Skin warm and dry. Normal skin color. Normal skin turgor. No rashes/lesions/lacerations noted. Extremities: No lower extremity edema. Extremities exhibit normal range of motion. Extremities nontender. Neuro: Cranial nerve exam: II-XII are grossly intact Right hemiparesis. No sensory deficit. Reflexes normal. Course Course Course Narrative: Right leg ultrasound showed no DVT, chest x-ray was unremarkable. Reevaluation(s) Reevaluation #1: UTI meet criteria for septic shock, severe lactic acidosis and hypotension. Patient received 30 cc/kg normal saline still remained hypotensive, start the patient on Levophed drip of (low concentrated) to support a blood pressure and will upgrade the admission to ICU. Time: 13:00 Reevaluation #2: FOCUSED EXAM: Patient received fluids/antibiotic on Levophed with improvement of blood pressure. Patient appear well and feels better. Improvement of lactic acidosis. Time: 15:08 Medications Administered Generic Name Dose Route Start Last Admin Trade Name Freq PRN Reason Stop Dose Admin Norepinephrine Bitartrate 8 mg in 250 mls @ 0 mls/hr 08/13/22 15:15 08/13/22 15:14 Levophed IV 0.05 mcg/kg/min .Q0M JUAN 8.35 mls/hr Administration Protocol Per Protocol Discontinued Medications Generic Name Dose Route Start Last Admin Trade Name Freq PRN Reason Stop Dose Admin Acetaminophen 650 mg 08/13/22 11:48 08/13/22 11:58 Acetaminophen 325 Mg Tablet PO 08/13/22 11:49 650 mg ONCE ONE Administration Sodium Chloride 1,000 mls @ 999 mls/hr 08/13/22 11:30 08/13/22 13:00 Ns IV 08/13/22 12:30 Infused .Q1H1M ONE Infusion Sodium Chloride 2,673 mls @ 2,673 mls/hr 08/13/22 12:35 08/13/22 14:12 Ns 30 ml/kg infuse over 1 hr (2673 ml) 08/13/22 13:34 Infused IV Infusion .Q1H STA Piperacillin Sod/Tazobactam 50 mls @ 100 mls/hr 08/13/22 12:35 08/13/22 14:12 Sod 3.375 gm/ Sodium Chloride IV 08/13/22 13:04 Infused ONCE ONE Infusion Medical Decision Making Differential Diagnosis Differential Diagnoses: The differential diagnosis associated with the presentation includes (DVT, diverticulitis, UTI, septic shock, electrolyte abnormalities, severe anemia, severe lactic acidosis.) Admission/Observation Consideration of admission/observation: Escalation of care including admission/observation considered Consult Healthcare Provider Management of the patient was discussed with: Compliance And Control Analyst (Dr. Espinosa) Lab Data MDM Lab Attestation statement: I reviewed the patient's lab results. 08/13/22 11:53 08/13/22 11:53 Labs: Lab Results 08/13/22 08/13/22 08/13/22 Range/Units 11:53 11:53 11:53 WBC 22.4 H (4.8-10.8) X10*3/uL RBC 5.11 D (4.60-5.80) X10*6/uL Hgb 12.7 L (14.0-18.0) g/dl Hct 40.7 L (42.0-52.0) % MCV 79.6 L (80.0-98.0) fL MCH 24.9 L (27.0-33.0) pg MCHC 31.2 (31.0-36.0) g/dl RDW 17.0 H (11.0-16.0) % Plt Count 151 L (160-400) X10*3/uL MPV 10.1 (9.4-12.4) fL Immature Gran % (Auto) 1.1 H (0.0-0.4) % Neut % (Auto) 89.6 H (45-73) % Lymph % (Auto) 5.8 L (20-40) % [place] % (Auto) 3.4 (2-11) % Eos % (Auto) 0.0 (0-4) % Baso % (Auto) 0.1 (0-2) % Lymph # (Auto) 1.3 (1.2-4.9) X10*3/uL [place] # (Auto) 0.8 (0.1-1.2) X10*3/uL Eos # (Auto) 0.0 (0.0-0.4) X10*3/uL Baso # (Auto) 0.0 (0.0-0.2) X10*3/uL Abs Immat Gran (auto) 0.24 H (0.00-0.03) X10*3/uL Absolute Neuts (auto) 20.1 H (2.0-8.3) x10*3/uL Absolute Nucleated RBC 0.000 (0.0-0.012) X10*3/uL Nucleated RBC % (auto) 0.0 (0.0-0.2) /100WBC Smear Tech's Comments VERIFIED Sodium 143 (135-145) mmol/L Potassium 4.1 D (3.3-5.1) mmol/L Chloride 106 (96-108) mmol/L Carbon Dioxide 24 (22-29) mmol/L Anion Gap 17 (12-20) BUN 14 (9-16) mg/dL Creatinine 1.09 (0.5-1.4) mg/dL Estim Creat Clear Calc 67.8 Estimated GFR > 60 Random Glucose 107 (60-115) mg/dL Lactic Acid (0.5-2.0) mmol/L Lactic Acid F/U @ 2Hr (0.5-2.0) mmol/L Calcium 8.8 D (8.4-10.2) mg/dL Total Bilirubin 1.5 H (0.0-1.0) mg/dL Direct Bilirubin 0.4 (0.0-0.5) mg/dL AST 11 (5-37) U/L ALT 6 (0-40) U/L Alkaline Phosphatase 98 (39-117) U/L Troponin I High Sens < 2.7 (<3.5-35.0) ng/L B-Natriuretic Peptide (<100) pg/mL Total Protein 6.7 (6.5-8.0) g/dL Albumin 3.4 L (3.5-5.0) g/dL Lipase 7 L (8-78) U/L Urine Color Urine Appearance Urine pH (5.0-9.0) Ur Specific [place] (1.005-1.025) Urine Protein (Neg-Trace) mg/dL Urine Glucose (UA) (Negative) mg/dL Urine Ketones (Negative) mg/dL Urine Blood (Negative) Urine Nitrite (Negative) Ur Leukocyte Esterase (Negative) Urine RBC (0-2) /HPF Urine WBC (0-5) /HPF Urine WBC Clumps Ur Squamous Epith Cells (0-2) /HPF Urine Bacteria (None Seen) Hyaline Casts (0-2) /LPF Influenza Type A (PCR) (Negative) Influenza Type B (PCR) (Negative) RSV RNA Qual (PCR) (Negative) SARS-CoV-2 RNA (RT-PCR) (Negative) 08/13/22 08/13/22 08/13/22 Range/Units 11:53 11:54 11:54 WBC (4.8-10.8) X10*3/uL RBC (4.60-5.80) X10*6/uL Hgb (14.0-18.0) g/dl Hct (42.0-52.0) % MCV (80.0-98.0) fL MCH (27.0-33.0) pg MCHC (31.0-36.0) g/dl RDW (11.0-16.0) % Plt Count (160-400) X10*3/uL MPV (9.4-12.4) fL Immature Gran % (Auto) (0.0-0.4) % Neut % (Auto) (45-73) % Lymph % (Auto) (20-40) % [place] % (Auto) (2-11) % Eos % (Auto) (0-4) % Baso % (Auto) (0-2) % Lymph # (Auto) (1.2-4.9) X10*3/uL [place] # (Auto) (0.1-1.2) X10*3/uL Eos # (Auto) (0.0-0.4) X10*3/uL Baso # (Auto) (0.0-0.2) X10*3/uL Abs Immat Gran (auto) (0.00-0.03) X10*3/uL Absolute Neuts (auto) (2.0-8.3) x10*3/uL Absolute Nucleated RBC (0.0-0.012) X10*3/uL Nucleated RBC % (auto) (0.0-0.2) /100WBC Smear Tech's Comments Sodium (135-145) mmol/L Potassium (3.3-5.1) mmol/L Chloride (96-108) mmol/L Carbon Dioxide (22-29) mmol/L Anion Gap (12-20) BUN (9-16) mg/dL Creatinine (0.5-1.4) mg/dL Estim Creat Clear Calc Estimated GFR Random Glucose (60-115) mg/dL Lactic Acid 5.3 H* (0.5-2.0) mmol/L Lactic Acid F/U @ 2Hr (0.5-2.0) mmol/L Calcium (8.4-10.2) mg/dL Total Bilirubin (0.0-1.0) mg/dL Direct Bilirubin (0.0-0.5) mg/dL AST (5-37) U/L ALT (0-40) U/L Alkaline Phosphatase (39-117) U/L Troponin I High Sens (<3.5-35.0) ng/L B-Natriuretic Peptide 179 H (<100) pg/mL Total Protein (6.5-8.0) g/dL Albumin (3.5-5.0) g/dL Lipase (8-78) U/L Urine Color Urine Appearance Urine pH (5.0-9.0) Ur Specific [place] (1.005-1.025) Urine Protein (Neg-Trace) mg/dL Urine Glucose (UA) (Negative) mg/dL Urine Ketones (Negative) mg/dL Urine Blood (Negative) Urine Nitrite (Negative) Ur Leukocyte Esterase (Negative) Urine RBC (0-2) /HPF Urine WBC (0-5) /HPF Urine WBC Clumps Ur Squamous Epith Cells (0-2) /HPF Urine Bacteria (None Seen) Hyaline Casts (0-2) /LPF Influenza Type A (PCR) NEGATIVE (Negative) Influenza Type B (PCR) NEGATIVE (Negative) RSV RNA Qual (PCR) NEGATIVE (Negative) SARS-CoV-2 RNA (RT-PCR) NEGATIVE (Negative) 08/13/22 08/13/22 Range/Units 13:36 14:13 WBC (4.8-10.8) X10*3/uL RBC (4.60-5.80) X10*6/uL Hgb (14.0-18.0) g/dl Hct (42.0-52.0) % MCV (80.0-98.0) fL MCH (27.0-33.0) pg MCHC (31.0-36.0) g/dl RDW (11.0-16.0) % Plt Count (160-400) X10*3/uL MPV (9.4-12.4) fL Immature Gran % (Auto) (0.0-0.4) % Neut % (Auto) (45-73) % Lymph % (Auto) (20-40) % [place] % (Auto) (2-11) % Eos % (Auto) (0-4) % Baso % (Auto) (0-2) % Lymph # (Auto) (1.2-4.9) X10*3/uL [place] # (Auto) (0.1-1.2) X10*3/uL Eos # (Auto) (0.0-0.4) X10*3/uL Baso # (Auto) (0.0-0.2) X10*3/uL Abs Immat Gran (auto) (0.00-0.03) X10*3/uL Absolute Neuts (auto) (2.0-8.3) x10*3/uL Absolute Nucleated RBC (0.0-0.012) X10*3/uL Nucleated RBC % (auto) (0.0-0.2) /100WBC Smear Tech's Comments Sodium (135-145) mmol/L Potassium (3.3-5.1) mmol/L Chloride (96-108) mmol/L Carbon Dioxide (22-29) mmol/L Anion Gap (12-20) BUN (9-16) mg/dL Creatinine (0.5-1.4) mg/dL Estim Creat Clear Calc Estimated GFR Random Glucose (60-115) mg/dL Lactic Acid (0.5-2.0) mmol/L Lactic Acid F/U @ 2Hr 2.8 H* (0.5-2.0) mmol/L Calcium (8.4-10.2) mg/dL Total Bilirubin (0.0-1.0) mg/dL Direct Bilirubin (0.0-0.5) mg/dL AST (5-37) U/L ALT (0-40) U/L Alkaline Phosphatase (39-117) U/L Troponin I High Sens (<3.5-35.0) ng/L B-Natriuretic Peptide (<100) pg/mL Total Protein (6.5-8.0) g/dL Albumin (3.5-5.0) g/dL Lipase (8-78) U/L Urine Color Yellow Urine Appearance Cloudy Urine pH 6.5 (5.0-9.0) Ur Specific [place] 1.015 (1.005-1.025) Urine Protein 30 (1+) H (Neg-Trace) mg/dL Urine Glucose (UA) Negative (Negative) mg/dL Urine Ketones Trace (Negative) mg/dL Urine Blood Small (1+) H (Negative) Urine Nitrite Positive H (Negative) Ur Leukocyte Esterase Large (3+) H (Negative) Urine RBC 11-20 H (0-2) /HPF Urine WBC >50 H (0-5) /HPF Urine WBC Clumps Present Ur Squamous Epith Cells 0-2 (0-2) /HPF Urine Bacteria 4+ (None Seen) Hyaline Casts 3-5 (0-2) /LPF Influenza Type A (PCR) (Negative) Influenza Type B (PCR) (Negative) RSV RNA Qual (PCR) (Negative) SARS-CoV-2 RNA (RT-PCR) (Negative) Independent Interpretation I performed an independent interpretation of an: Plain X-Ray (Chest: No acute pathology.), Ultrasound (Right venous Doppler: No DVT.) and CT Scan Interpretation: CT abdomen and pelvis: No acute pathology. Radiology Impression Discussion of test interpretation with radiology: I have reviewed the radiologist's reading. Independent Historian Clinical information obtained from an independent historian. History obtained from or confirmed by: EMS and Other (Record/nursing staff.) Critical Care Time Critical Care Time Critical Care Time: Yes Total Critical Care Time: 60 Attestation: I spent 60 minutes providing critical care service to the patient, this including time spent at the bedside to evaluate the patient, reassess the patient, monitoring vital signs, review labs, and radiographic studies, counseling the patient/family, discussing the case with consultants, disposition the patient. Discharge Plan Discharge Clinical Impression: UTI (urinary tract infection), Septic shock, Abdominal pain Patient Disposition: Admitted As Inpatient
[2022-08-13] MEDS: 0.9 % Sodium Chloride 1,000 ML 999 ML IV (11:50)
[2022-08-13] MEDS: Acetaminophen 325 MG TABLET 650 MG PO (11:58)
[2022-08-13 12:04] LABS: Basophils Percent Auto 0.1 % (0-2); Hematocrit 40.7 % (42.0-52.0); Hemoglobin 12.7 g/dl (14.0-18.0); Imm Gran Abs Auto 0.24 X10*3/uL (0.00-0.03); Imm Gran Pct Auto 1.1 % (0.0-0.4); Lymphocytes Absolute Auto 1.3 X10*3/uL (1.2-4.9); Lymphocytes Percent Auto 5.8 % (20-40); Mean Corpuscular HGB Conc 31.2 g/dl (31.0-36.0); Mean Corpuscular Hemoglobin 24.9 pg (27.0-33.0); Mean Corpuscular Volume 79.6 fL (80.0-98.0); Mean Platelet Volume 10.1 fL (9.4-12.4); Monocytes Absolute Auto 0.8 X10*3/uL (0.1-1.2); Monocytes Percent Auto 3.4 % (2-11); Neutrophils Absolute Auto 20.1 x10*3/uL (2.0-8.3); Neutrophils Percent Auto 89.6 % (45-73); Platelet Count 151 X10*3/uL (160-400); Red Blood Count 5.11 X10*6/uL (4.60-5.80); SCAN SMEAR FLAG 1; White Blood Count 22.4 X10*3/uL (4.8-10.8)
[2022-08-13 12:16] LABS: Alanine Aminotransferase 6 U/L (0-40); Albumin Level 3.4 g/dL (3.5-5.0); Alkaline Phosphatase 98 U/L (39-117); Anion Gap 17 (12-20); Aspartate Amino Transferase 11 U/L (5-37); Bilirubin Direct 0.4 mg/dL (0.0-0.5); Bilirubin Total 1.5 mg/dL (0.0-1.0); Blood Urea Nitrogen 14 mg/dL (9-16); Calcium 8.8 mg/dL (8.4-10.2); Carbon Dioxide 24 mmol/L (22-29); Chloride 106 mmol/L (96-108); Creatinine Clr Calc Pharmacy 67.8; Estimated Glomerular Filt Rate > 60; Glucose Random 107 mg/dL (60-115); Lipase 7 U/L (8-78); Potassium 4.1 mmol/L (3.3-5.1); Sodium 143 mmol/L (135-145); Total Protein 6.7 g/dL (6.5-8.0)
[2022-08-13 12:24] LABS: Troponin-I High Sensitivity < 2.7 ng/L (<3.5-35.0)
[2022-08-13 12:24] LABS: Lactic Acid 5.3 mmol/L (0.5-2.0)
[2022-08-13 12:25] LABS: MANUAL DIFF FLAG SCAN
[2022-08-13 12:27] LABS: B Type Natriuretic Peptide 179 pg/mL (<100)
[2022-08-13 12:29] LABS: SLIDE REVIEW VERIFIED
[2022-08-13 12:42] LABS: Influenza A PCR NEGATIVE (Negative); Influenza B PCR NEGATIVE (Negative); Resp Syncy Virus RNA Qual PCR NEGATIVE (Negative); SARS COV2 PCR INHOUSE NEGATIVE (Negative)
[2022-08-13] MEDS: 0.9 % Sodium Chloride 2,673 ML 2673 ML IV (12:45)
[2022-08-13] MEDS: Piperacillin Sodium/Tazobactam 3.375 GM in 0.9 % Sodium Chloride 50 ML IV (12:58)
--- NOTE | 2022-08-13 12:58 | PHA.MEDREC ---
Pharmacy Consult ? Medication Reconciliation Pharmacy has completed the medication reconciliation. [facility] [place]
[2022-08-13 13:44] LABS: Appearance Urine Cloudy; Color Urine Yellow; Glucose Urine UA Negative (Negative); Leukocyte Esterase Urine Large (3+) (Negative); Nitrite Urine Positive (Negative); PH 6.5 (5.0-9.0); Specific Gravity - Urine 1.015 (1.005-1.025); UMIC TRIGGER UACC YES; Urine Blood Small (1+) (Negative); Urine Ketones Trace mg/dL (Negative); Urine Protein 30 (1+) mg/dL (Neg-Trace)
[2022-08-13 13:57] LABS: Reflex Lactate? Lactic Acid Added
[2022-08-13 13:57] LABS: Bacteria Urine 4+ (None Seen); Squamous Epithelial Cell Urine 0-2 /HPF (0-2); UACC Culture Trigger YES; WBC Clumps Urine Present; WBC Urine >50 /HPF (0-5)
--- NOTE | 2022-08-13 14:25 | PC.NURSE ---
late entry - pt coming from snf w/ hx of right hemiplegia and aphasia d/t past cva for increased weakness, ams, and fever. temp found to be 102.7, tylenol given with good effect temp now 98.3 fluids infused, labs drawn and sent straight cath done to obtain urine sample which pt tolerated well. pt noted to be hypotensive after fluids
[2022-08-13 14:34] LABS: ~Lactic Acid-LAB USE ONLY 2.8 mmol/L (0.5-2.0)
[2022-08-13] MEDS: Norepinephrine Bitartrate/D5W 8 MG/250 ML PLAST..BAG 8.35 MG IV (15:14)
--- NOTE | 2022-08-13 15:46 | PC.NURSE ---
levo drip initiated at 1514, pt appears to be resting comfortably in bed, call funes within reach.
--- NOTE | 2022-08-13 16:07 | P.HPCC_ITS ---
History of Present Illness Date of Service: 08/13/22 Attending physician on admission: Gianna Yeboah Chief Complaint: Altered mental status 72-year-old detention patient with old CVA and right hemiparesis and aphasia presents with hypotension and elevated lactate of 5.3 and a positive urinalysis for leukocyte esterase and nitrite and white cells and bacteria a so at the stents of bleed a urosepsis and was given 30 cc/kilos of IV fluid but blood pressure still in the 70s with needed to be started on Levophed and I had done a bedside echo showing normal left and right ventricular function no primary valve or pericardial disease ejection fraction certainly it at least 60% and the inf erior vena cava is still relatively flat with good inspiratory response so we are starting maintenance fluids at 125 cc/hour along with the Levophed I reviewed the above abdominal and pelvic CT scan and I noted prominence to his spleen but also saw that he had diffuse bilateral ground-glass infiltrates starting in the perihilar area and then involving both lower lobes with what looks like significant bibasilar infiltrates and peribronchial thickening so the question is the end there was a lot of material in both right and left mainstem bronchi so I could I question the possibility of aspiration so it is not impossible that he has got an institutional node pneumonia colonized of course differently and and had an aspiration so in addition to the Zosyn that was given for urosepsis I gave him a dose of vancomycin and a dose of Levaquin to her de cover him for an institutional acquired pneumonia as either a contributor or potential source of his hypotension it does not appear that it is an early ARDS EKG shows sinus tachycardia but there are no acute ST-T changes and his lab work shows a markedly elevated white count with left shift along with the lactate which is now resolving after his fluid Review of Systems Review of Systems: Yes Unobtainable due to mental status PMFSH Past Medical History Medical History CVA (cerebral vascular accident) Mixed hyperlipidemia Social History Social History Household Members: Unknown / Unable to assess Unable to assess alcohol history related to: Unknown Alcohol intake: former Patient Tobacco Use Status: Never used Tobacco Advance Directives: Yes Advance Directives on File: Yes Advance Directives Date on File: 01/16/22 service: No Current occupational status: disabled Meds Allergies Allergy/AdvReac Type Severity Reaction Status Date / Time No Known Allergies Allergy Verified 04/08/22 00:58 [No Known Allergies*] Active Medications: Current Medications Norepinephrine Bitartrate (Levophed) 8 mg in 250 mls @ 0 mls/hr IV .Q0M [facility]; Protocol Last Admin: 08/13/22 15:14 Dose: 0.05 mcg/kg/min, 8.35 mls/hr Levofloxacin (Levaquin) 750 mg in 150 mls @ 100 mls/hr IV ONCE ONE Stop: 08/13/22 17:30 Potassium Chloride/Dextrose/Sod Cl (Kcl 20 Meq In 5% Dex/0.45% Sod) 20 meq in 1,000 mls @ 125 mls/hr IVCONT .Q8H [facility] Pharmacy Consult (Consult Rx Perform Med Rec) 1 each MISCELLANE ONCE PRN PRN Reason: Consult order Pharmacy Consult (Consult Rx Vancomycin Dosing) 1 each MISCELLANE DAILY PRN PRN Reason: Consult order Home Medications Medication Instructions Recorded Confirmed Last Taken Type acetaminophen 325 mg tablet 650 mg PO Q4H PRN Pain 04/08/22 08/13/22 Unknown History albuterol sulfate 90 mcg/actuation 2 puff inhalation Q4H PRN 04/08/22 08/13/22 Unknown History aerosol inhaler Shortness Of Breath amitriptyline 25 mg tablet 25 mg PO BEDTIME 04/08/22 08/13/22 Unknown History atorvastatin 20 mg tablet 20 mg PO BEDTIME 04/08/22 08/13/22 Unknown History baclofen 10 mg tablet 30 mg PO TID 04/08/22 08/13/22 Unknown History clopidogrel 75 mg tablet 75 mg PO DAILY 04/08/22 08/13/22 Unknown History hydralazine 25 mg tablet 1 tab PO Q6H PRN Increased Blood 04/08/22 08/13/22 Unknown History Pressure lactulose 10 gram/15 mL oral 30 ml PO Q2D PRN Constipation 04/08/22 08/13/22 Unknown History solution melatonin 5 mg tablet 5 mg PO BEDTIME 04/08/22 08/13/22 Unknown History metoprolol tartrate 25 mg tablet 25 mg PO BID 04/08/22 08/13/22 Unknown History nystatin 100,000 unit/gram topical 1 applic topical Q8H PRN Rash 04/08/22 08/13/22 Unknown History powder (Nystop) oxycodone 5 mg tablet 1 tab PO Q6H PRN Pain 04/08/22 08/13/22 Unknown History oxymetazoline 0.05 % nasal mist 1 spray intranasal Q12H PRN Sinus 04/08/22 08/13/22 Unknown History (Afrin (oxymetazoline)) Symptoms pregabalin 100 mg capsule 100 mg PO TID 04/08/22 08/13/22 Unknown History bethanechol chloride 25 mg tablet 25 mg PO TID 08/13/22 08/13/22 Unknown History bisacodyl 10 mg rectal suppository 10 mg SD DAILY PRN Constipation 08/13/22 08/13/22 Unknown History gabapentin 100 mg capsule 100 mg PO BID 08/13/22 08/13/22 Unknown History guaifenesin 100 mg/5 mL oral liquid 200 mg PO Q4H PRN Cold Symptoms 08/13/22 08/13/22 Unknown History ipratropium 0.5 mg-albuterol 3 mg 3 ml inhalation Q4H PRN Shortness 08/13/22 08/13/22 Unknown History (2.5 mg base)/3 mL nebulization Of Breath soln sennosides 8.6 mg tablet (senna) 8.6 mg PO DAILY PRN Constipation 08/13/22 08/13/22 Unknown History sennosides 8.6 mg-docusate sodium 1 tab-cap PO BID 08/13/22 08/13/22 Unknown History 50 mg tablet (Senna Plus) sodium chloride 0.65 % nasal spray 1 spray intranasal Q8H PRN Dry 08/13/22 Unknown History aerosol (Saline Nasal) Nasal Passages sodium phosphates 19 gram-7 118 ml SD DAILY PRN Constipation 08/13/22 08/13/22 Unknown History gram/118 mL enema (Enema) tamsulosin 0.4 mg capsule 0.8 mg PO DAILY 08/13/22 08/13/22 Unknown History Physical Exam Vital Signs: Vital Signs: Last Vital Signs Temp 98.3 F 08/13/22 14:24 Pulse 96 08/13/22 15:31 Resp 18 08/13/22 15:31 BP 89/58 L 08/13/22 15:31 Pulse Ox 99 08/13/22 15:31 O2 Del Method Nasal Cannula 08/13/22 15:31 O2 Flow Rate 2 08/13/22 15:31 BMI result Body Mass Index 28.2 He actually awoke and was looking at me but unable to answer due to aphasia Right hemiparesis Adequate bilateral carotid upstrokes and bedside echo demonstrating normal LV function as mentioned above Abdomen is soft though no organomegaly And lungs there are no adventitious sounds other than some scattered bilateral rales at the bases Results Labs 08/13/22 11:53 08/13/22 11:53 Labs: Laboratory Results - last 24 hr 08/13/22 08/13/22 08/13/22 11:53 11:53 11:53 MCV 79.6 L MCH 24.9 L MCHC 31.2 RDW 17.0 H Plt Count 151 L MPV 10.1 Immature Gran % (Auto) 1.1 H Neut % (Auto) 89.6 H Lymph % (Auto) 5.8 L [place] % (Auto) 3.4 Eos % (Auto) 0.0 Baso % (Auto) 0.1 Lymph # (Auto) 1.3 [place] # (Auto) 0.8 Eos # (Auto) 0.0 Baso # (Auto) 0.0 Abs Immat Gran (auto) 0.24 H Absolute Neuts (auto) 20.1 H Absolute Nucleated RBC 0.000 Nucleated RBC % (auto) 0.0 Smear Tech's Comments VERIFIED Anion Gap 17 Estim Creat Clear Calc 67.8 Estimated GFR > 60 Random Glucose 107 Lactic Acid Lactic Acid F/U @ 2Hr Calcium 8.8 D Total Bilirubin 1.5 H Direct Bilirubin 0.4 AST 11 ALT 6 Alkaline Phosphatase 98 Troponin I High Sens < 2.7 B-Natriuretic Peptide Total Protein 6.7 Albumin 3.4 L Lipase 7 L Urine Color Urine Appearance Urine pH Ur Specific [place] Urine Protein Urine Glucose (UA) Urine Ketones Urine Blood Urine Nitrite Ur Leukocyte Esterase Urine RBC Urine WBC Urine WBC Clumps Ur Squamous Epith Cells Urine Bacteria Hyaline Casts Influenza Type A (PCR) Influenza Type B (PCR) RSV RNA Qual (PCR) SARS-CoV-2 RNA (RT-PCR) 08/13/22 08/13/22 08/13/22 11:53 11:54 11:54 MCV MCH MCHC RDW Plt Count MPV Immature Gran % (Auto) Neut % (Auto) Lymph % (Auto) [place] % (Auto) Eos % (Auto) Baso % (Auto) Lymph # (Auto) [place] # (Auto) Eos # (Auto) Baso # (Auto) Abs Immat Gran (auto) Absolute Neuts (auto) Absolute Nucleated RBC Nucleated RBC % (auto) Smear Tech's Comments Anion Gap Estim Creat Clear Calc Estimated GFR Random Glucose Lactic Acid 5.3 H* Lactic Acid F/U @ 2Hr Calcium Total Bilirubin Direct Bilirubin AST ALT Alkaline Phosphatase Troponin I High Sens B-Natriuretic Peptide 179 H Total Protein Albumin Lipase Urine Color Urine Appearance Urine pH Ur Specific [place] Urine Protein Urine Glucose (UA) Urine Ketones Urine Blood Urine Nitrite Ur Leukocyte Esterase Urine RBC Urine WBC Urine WBC Clumps Ur Squamous Epith Cells Urine Bacteria Hyaline Casts Influenza Type A (PCR) NEGATIVE Influenza Type B (PCR) NEGATIVE RSV RNA Qual (PCR) NEGATIVE SARS-CoV-2 RNA (RT-PCR) NEGATIVE 08/13/22 08/13/22 13:36 14:13 MCV MCH MCHC RDW Plt Count MPV Immature Gran % (Auto) Neut % (Auto) Lymph % (Auto) [place] % (Auto) Eos % (Auto) Baso % (Auto) Lymph # (Auto) [place] # (Auto) Eos # (Auto) Baso # (Auto) Abs Immat Gran (auto) Absolute Neuts (auto) Absolute Nucleated RBC Nucleated RBC % (auto) Smear Tech's Comments Anion Gap Estim Creat Clear Calc Estimated GFR Random Glucose Lactic Acid Lactic Acid F/U @ 2Hr 2.8 H* Calcium Total Bilirubin Direct Bilirubin AST ALT Alkaline Phosphatase Troponin I High Sens B-Natriuretic Peptide Total Protein Albumin Lipase Urine Color Yellow Urine Appearance Cloudy Urine pH 6.5 Ur Specific [place] 1.015 Urine Protein 30 (1+) H Urine Glucose (UA) Negative Urine Ketones Trace Urine Blood Small (1+) H Urine Nitrite Positive H Ur Leukocyte Esterase Large (3+) H Urine RBC 11-20 H Urine WBC >50 H Urine WBC Clumps Present Ur Squamous Epith Cells 0-2 Urine Bacteria 4+ Hyaline Casts 3-5 Influenza Type A (PCR) Influenza Type B (PCR) RSV RNA Qual (PCR) SARS-CoV-2 RNA (RT-PCR) Imaging Radiologist's Impressions: Impressions Venous Duplex 08/13/22 12:14 IMPRESSION: No DVT demonstrated in the right lower extremity. Chest X-Ray 08/13/22 12:50 IMPRESSION: Bronchial wall thickening may be infectious and/or inflammatory in etiology. Abdomen/Pelvis CT 08/13/22 14:17 IMPRESSION: 1. Cholelithiasis without cholecystitis. 2. Diverticulosis without diverticulitis. 3. Mild splenomegaly. 4. Bibasilar groundglass opacities, possibly pneumonia. 5. 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 Correlate with clinical history of ankylosing spondylitis. 6. Fatty replacement of gluteal muscles. 7. Small fat-containing umbilical hernia. Fleischner guidelines were followed. Assessment and Plan (1) Septic shock: Status: Acute (2) Abdominal pain: Status: Acute (3) Kidney stone on left side: Status: Acute (4) History of stroke: Status: Acute (5) Chronic indwelling Benavidez catheter: Status: Acute (6) UTI (urinary tract infection): Status: Acute (7) Sebaceous cyst of scrotum: Status: Acute (8) Metabolic encephalopathy: Status: Acute (9) Mixed hyperlipidemia: Status: Acute (10) Acute UTI: Status: Acute (11) Acute hypokalemia: Status: Acute (12) Aspiration pneumonitis: Status: Acute Plan Will bring to the ICU on maintenance fluids at 125 per hour along with the Levophed as needed for a for a mean arterial pressure of 65 and then a course of Benavidez catheter so we could track his progress and he might need a baseline CT scan of his chest that we could and follow in time as well but he will need a bedside swallow examination Will cover with the existing Zosyn for the urinary tract infection with Levaquin and vancomycin as well until we out the source of infection Time Spent With Patient Time: Total time managing care of this patient today _45___ minutes.
[2022-08-13 16:15] LABS: Reflex Lactate? 2 Y
[2022-08-13 16:44] LABS: ~Lactic Acid-LAB USE ONLY 1.5 mmol/L (0.5-2.0)
[2022-08-13] MEDS: levoFLOXacin/D5W 750 MG/150 ML PIGGYBACK 100 MG IV (16:44)
[2022-08-13] MEDS: Heparin Sodium,Porcine 5,000 UNIT/ML VIAL 5000 UNIT SUBCUT (16:51)
[2022-08-13] MEDS: KCl 20 mEq in 5% Dex/0.45% Sod 20 MEQ/1,000 ML IV.SOLN 125 MEQ IVCONT (18:33)
[2022-08-13] MEDS: vancomycin/NS 2,000 MG/500 ML PLAST..BAG 250 MG IV (18:44)
--- NOTE | 2022-08-13 19:26 | PHA.PROG ---
Admission Date/Time: August 13, 2022 16:04 Indication: sepsis? Weight in k.1 kg Adjusted body weight in K.4 kg [place] body weight in K.1 kg Obesity Dosing Indication % IBW: 122% Serum Creatinine - Last 168 Hours 08/13/22 11:53 Creatinine 1.09 Estimated CrCl and GFR - Last 168 Hours 08/13/22 11:53 Estim Creat Clear Calc 67.8 Estimated GFR > 60 Vancomycin Loading Dose: 2000 mg Current Vancomycin Dosing Regimen: 1500 mg Q24H Date and Time for next Vancomycin Level to be drawn: 08/16 @ 1700 Pharmacist Comments on Vancomycin Plan: Patient received an adequate load dose of vancomycin 2000 mg on 08/13 @ 1844. [place] dose vancomycin 1500 mg Q24H on 08/14 @ 1900. Expected AUC 477 with a 13.7. Level is scheduled to be drawn 08/16 @ 1700. Pharmacy will monitor renal function daily. Jacquie Haddad PharmD Vancomycin dosing will take advantage of [employer]! as a clinical decision support tool that uses Bayesian modeling to calculate individual patient's pharmacokinetic parameters and forecast the patient's drug concentration time course with the target goal AUC 24 range of 400 - 600 mg/L/hr.
[2022-08-13] MEDS: Famotidine/PF 20 MG/2 ML VIAL IVPUSH (20:35)
[2022-08-13 20:49] LABS: Anion Gap 13 (12-20); Blood Urea Nitrogen 13 mg/dL (9-16); Calcium 7.8 mg/dL (8.4-10.2); Carbon Dioxide 22 mmol/L (22-29); Chloride 113 mmol/L (96-108); Creatinine Clr Calc Pharmacy 73.9; Estimated Glomerular Filt Rate > 60; Glucose Random 129 mg/dL (60-115); Magnesium 1.5 mg/dL (1.6-2.6); Phosphorus 2.2 mg/dL (2.7-4.5); Sodium 143 mmol/L (135-145)
[2022-08-13] MEDS: Magnesium Sulfate/H2O 2 GM/50 ML PIGGYBACK IV (21:15)
[2022-08-13] MEDS: Potassium Phosphate/NS 15 MMOL/250 ML PLAST..BAG 62.5 MMOL IV (21:24)
[2022-08-14] VITALS (16 sets, daily range): BP systolic 91–164; BP diastolic 56–81; PULSE 79–107; RESP 14–20; TEMP 36.1–37.5; O2SAT 93–97; BMI 27.8
[2022-08-14] MEDS: Ketorolac Tromethamine 15 MG/ML VIAL IVPUSH (02:18)
[2022-08-14 05:29] LABS: VBG Base Excess 0.8 mmol/L; VBG HCO3 25 mmol/L (22-26); VBG pCO2 39 mmHg; VBG pH 7.41 (7.32-7.43); VBG pO2 38 mmHg
[2022-08-14 05:32] LABS: Venous Blood Gas Refer to POC result
[2022-08-14 05:35] LABS: Hemoglobin 11.5 g/dl (14.0-18.0); Imm Gran Abs Auto 0.11 X10*3/uL (0.00-0.03); Imm Gran Pct Auto 0.7 % (0.0-0.4); PLT CLUMP 1; Red Cell Distribution Width 17.2 % (11.0-16.0); SCAN SMEAR FLAG 1
[2022-08-14 05:37] LABS: Basophils Percent Auto 0.3 % (0-2); Hematocrit 36.5 % (42.0-52.0); Lymphocytes Absolute Auto 0.9 X10*3/uL (1.2-4.9); Lymphocytes Percent Auto 5.9 % (20-40); Mean Corpuscular HGB Conc 31.5 g/dl (31.0-36.0); Mean Corpuscular Hemoglobin 25.2 pg (27.0-33.0); Mean Platelet Volume 10.6 fL (9.4-12.4); Monocytes Absolute Auto 0.8 X10*3/uL (0.1-1.2); Monocytes Percent Auto 4.9 % (2-11); Neutrophils Absolute Auto 13.6 x10*3/uL (2.0-8.3); Neutrophils Percent Auto 88.2 % (45-73); Red Blood Count 4.56 X10*6/uL (4.60-5.80)
[2022-08-14 05:39] LABS: MANUAL DIFF FLAG NO; Platelet Count 102 X10*3/uL (160-400); White Blood Count 15.5 X10*3/uL (4.8-10.8)
[2022-08-14 05:51] LABS: Albumin Level 2.8 g/dL (3.5-5.0); Anion Gap 12 (12-20); Blood Urea Nitrogen 14 mg/dL (9-16); Calcium 8.4 mg/dL (8.4-10.2); Carbon Dioxide 22 mmol/L (22-29); Chloride 114 mmol/L (96-108); Estimated Glomerular Filt Rate > 60; Glucose Random 102 mg/dL (60-115); Potassium 4.4 mmol/L (3.3-5.1); Sodium 144 mmol/L (135-145)
[2022-08-14] MEDS: Heparin Sodium,Porcine 5,000 UNIT/ML VIAL 5000 UNIT SUBCUT ×2 (06:05→18:21)
--- NOTE | 2022-08-14 06:51 | HE.PHANOTE ---
RE REBECCA SCR IS IMPROVING SO I CHANGED DOSE TO 1000MG Q12H, NEXT LEVEL DUE 08/15 @0500. SUSPECTED AUC IS 515, TROUGH WAS 16.7 KENYA
[2022-08-14] MEDS: vancomycin HCL 1,000 MG in 0.9 % Sodium Chloride 250 ML 270 MG IV (07:15)
[2022-08-14] MEDS: Potassium Phosphate/NS 15 MMOL/250 ML PLAST..BAG 62.5 MMOL IV ×2 (07:15→11:20)
[2022-08-14] MEDS: Albumin Human 25 % 100 ML IV ×3 (07:15→19:52)
[2022-08-14] MEDS: Famotidine/PF 20 MG/2 ML VIAL IVPUSH (07:15)
--- NOTE | 2022-08-14 10:42 | PM.CCPN ---
Subjective Subjective Date of Service: 08/14/22 Interval History: 72-year-old gentleman with underlying history of CVA with right hemiparesis and aphasia admitted on 08/13/2022 with gram-negative sepsis secondary to source briefly requiring pressor support and intensive care monitoring. Overnight titrated of pressors. Critical Care Time (minutes): 0 Physical Exam Vital Signs: Vital Signs: Last Vital Signs Temp 97.9 F 08/14/22 09:00 Pulse 96 08/14/22 09:22 Resp 16 08/14/22 09:00 BP 112/68 08/14/22 09:22 Pulse Ox 93 08/14/22 09:00 O2 Del Method Room Air 08/14/22 09:00 O2 Flow Rate 2 08/14/22 08:00 BMI result Body Mass Index 27.8 Const: General: no acute distress, alert and awake Eyes: Sclerae: sclerae normal EOM: EOMs intact bilaterally Neck: Neck: Yes no lymphadenopathy, Yes trachea midline and Yes supple Resp: Effort & Inspection: normal respiratory effort and no respiratory distress Auscultation: clear to auscultation bilaterally Cardio: Rate: regular rate Rhythm: regular rhythm Heart sounds: no gallops, no murmurs and no rubs GI: Palpation (GI): Soft to palpation and Other GI palpation findings present ( Nontender) Auscultation: normal bowel sounds Extrem: General: No clubbing, No cyanosis and Yes edema ( trace bilateral) Objective Data Labs 08/14/22 05:25 08/14/22 05:25 Labs: Laboratory Results - last 24 hr 08/13/22 08/13/22 08/13/22 11:53 11:53 11:53 WBC 22.4 H RBC 5.11 D Hgb 12.7 L Hct 40.7 L MCV 79.6 L MCH 24.9 L MCHC 31.2 RDW 17.0 H Plt Count 151 L MPV 10.1 Immature Gran % (Auto) 1.1 H Neut % (Auto) 89.6 H Lymph % (Auto) 5.8 L [place] % (Auto) 3.4 Eos % (Auto) 0.0 Baso % (Auto) 0.1 Lymph # (Auto) 1.3 [place] # (Auto) 0.8 Eos # (Auto) 0.0 Baso # (Auto) 0.0 Abs Immat Gran (auto) 0.24 H Absolute Neuts (auto) 20.1 H Absolute Nucleated RBC 0.000 Nucleated RBC % (auto) 0.0 Smear Tech's Comments VERIFIED VBG pH VBG pCO2 VBG pO2 VBG HCO3 VBG O2 Saturation VBG Base Excess Sodium 143 Potassium 4.1 D Chloride 106 Carbon Dioxide 24 Anion Gap 17 BUN 14 Creatinine 1.09 Estim Creat Clear Calc 67.8 Estimated GFR > 60 Random Glucose 107 Lactic Acid Lactic Acid F/U @ 2Hr Lactic Acid F/U @ 4Hr Calcium 8.8 D Phosphorus Magnesium Total Bilirubin 1.5 H Direct Bilirubin 0.4 AST 11 ALT 6 Alkaline Phosphatase 98 Troponin I High Sens < 2.7 B-Natriuretic Peptide Total Protein 6.7 Albumin 3.4 L Lipase 7 L Urine Color Urine Appearance Urine pH Ur Specific [place] Urine Protein Urine Glucose (UA) Urine Ketones Urine Blood Urine Nitrite Ur Leukocyte Esterase Urine RBC Urine WBC Urine WBC Clumps Ur Squamous Epith Cells Urine Bacteria Hyaline Casts Influenza Type A (PCR) Influenza Type B (PCR) RSV RNA Qual (PCR) SARS-CoV-2 RNA (RT-PCR) 08/13/22 08/13/22 08/13/22 11:53 11:54 11:54 WBC RBC Hgb Hct MCV MCH MCHC RDW Plt Count MPV Immature Gran % (Auto) Neut % (Auto) Lymph % (Auto) [place] % (Auto) Eos % (Auto) Baso % (Auto) Lymph # (Auto) [place] # (Auto) Eos # (Auto) Baso # (Auto) Abs Immat Gran (auto) Absolute Neuts (auto) Absolute Nucleated RBC Nucleated RBC % (auto) Smear Tech's Comments VBG pH VBG pCO2 VBG pO2 VBG HCO3 VBG O2 Saturation VBG Base Excess Sodium Potassium Chloride Carbon Dioxide Anion Gap BUN Creatinine Estim Creat Clear Calc Estimated GFR Random Glucose Lactic Acid 5.3 H* Lactic Acid F/U @ 2Hr Lactic Acid F/U @ 4Hr Calcium Phosphorus Magnesium Total Bilirubin Direct Bilirubin AST ALT Alkaline Phosphatase Troponin I High Sens B-Natriuretic Peptide 179 H Total Protein Albumin Lipase Urine Color Urine Appearance Urine pH Ur Specific [place] Urine Protein Urine Glucose (UA) Urine Ketones Urine Blood Urine Nitrite Ur Leukocyte Esterase Urine RBC Urine WBC Urine WBC Clumps Ur Squamous Epith Cells Urine Bacteria Hyaline Casts Influenza Type A (PCR) NEGATIVE Influenza Type B (PCR) NEGATIVE RSV RNA Qual (PCR) NEGATIVE SARS-CoV-2 RNA (RT-PCR) NEGATIVE 08/13/22 08/13/22 08/13/22 13:36 14:13 16:30 WBC RBC Hgb Hct MCV MCH MCHC RDW Plt Count MPV Immature Gran % (Auto) Neut % (Auto) Lymph % (Auto) [place] % (Auto) Eos % (Auto) Baso % (Auto) Lymph # (Auto) [place] # (Auto) Eos # (Auto) Baso # (Auto) Abs Immat Gran (auto) Absolute Neuts (auto) Absolute Nucleated RBC Nucleated RBC % (auto) Smear Tech's Comments VBG pH VBG pCO2 VBG pO2 VBG HCO3 VBG O2 Saturation VBG Base Excess Sodium Potassium Chloride Carbon Dioxide Anion Gap BUN Creatinine Estim Creat Clear Calc Estimated GFR Random Glucose Lactic Acid Lactic Acid F/U @ 2Hr 2.8 H* Lactic Acid F/U @ 4Hr 1.5 Calcium Phosphorus Magnesium Total Bilirubin Direct Bilirubin AST ALT Alkaline Phosphatase Troponin I High Sens B-Natriuretic Peptide Total Protein Albumin Lipase Urine Color Yellow Urine Appearance Cloudy Urine pH 6.5 Ur Specific [place] 1.015 Urine Protein 30 (1+) H Urine Glucose (UA) Negative Urine Ketones Trace Urine Blood Small (1+) H Urine Nitrite Positive H Ur Leukocyte Esterase Large (3+) H Urine RBC 11-20 H Urine WBC >50 H Urine WBC Clumps Present Ur Squamous Epith Cells 0-2 Urine Bacteria 4+ Hyaline Casts 3-5 Influenza Type A (PCR) Influenza Type B (PCR) RSV RNA Qual (PCR) SARS-CoV-2 RNA (RT-PCR) 08/13/22 08/14/22 08/14/22 20:25 05:20 05:25 WBC 15.5 H RBC 4.56 L Hgb 11.5 L Hct 36.5 L MCV 80.0 MCH 25.2 L MCHC 31.5 RDW 17.2 H Plt Count 102 L D MPV 10.6 Immature Gran % (Auto) 0.7 H Neut % (Auto) 88.2 H Lymph % (Auto) 5.9 L [place] % (Auto) 4.9 Eos % (Auto) 0.0 Baso % (Auto) 0.3 Lymph # (Auto) 0.9 L [place] # (Auto) 0.8 Eos # (Auto) 0.0 Baso # (Auto) 0.0 Abs Immat Gran (auto) 0.11 H Absolute Neuts (auto) 13.6 H Absolute Nucleated RBC 0.000 Nucleated RBC % (auto) 0.0 Smear Tech's Comments VBG pH 7.41 VBG pCO2 39 VBG pO2 38 VBG HCO3 25 VBG O2 Saturation 62.0 VBG Base Excess 0.8 Sodium 143 Potassium 5.0 D Chloride 113 H Carbon Dioxide 22 Anion Gap 13 BUN 13 Creatinine 1.00 Estim Creat Clear Calc 73.9 Estimated GFR > 60 Random Glucose 129 H Lactic Acid Lactic Acid F/U @ 2Hr Lactic Acid F/U @ 4Hr Calcium 7.8 L D Phosphorus 2.2 L Magnesium 1.5 L Total Bilirubin Direct Bilirubin AST ALT Alkaline Phosphatase Troponin I High Sens B-Natriuretic Peptide Total Protein Albumin Lipase Urine Color Urine Appearance Urine pH Ur Specific [place] Urine Protein Urine Glucose (UA) Urine Ketones Urine Blood Urine Nitrite Ur Leukocyte Esterase Urine RBC Urine WBC Urine WBC Clumps Ur Squamous Epith Cells Urine Bacteria Hyaline Casts Influenza Type A (PCR) Influenza Type B (PCR) RSV RNA Qual (PCR) SARS-CoV-2 RNA (RT-PCR) 08/14/22 05:25 WBC RBC Hgb Hct MCV MCH MCHC RDW Plt Count MPV Immature Gran % (Auto) Neut % (Auto) Lymph % (Auto) [place] % (Auto) Eos % (Auto) Baso % (Auto) Lymph # (Auto) [place] # (Auto) Eos # (Auto) Baso # (Auto) Abs Immat Gran (auto) Absolute Neuts (auto) Absolute Nucleated RBC Nucleated RBC % (auto) Smear Tech's Comments VBG pH VBG pCO2 VBG pO2 VBG HCO3 VBG O2 Saturation VBG Base Excess Sodium 144 Potassium 4.4 Chloride 114 H Carbon Dioxide 22 Anion Gap 12 BUN 14 Creatinine 0.84 Estim Creat Clear Calc 88.0 Estimated GFR > 60 Random Glucose 102 Lactic Acid Lactic Acid F/U @ 2Hr Lactic Acid F/U @ 4Hr Calcium 8.4 D Phosphorus 2.0 L Magnesium 2.0 Total Bilirubin Direct Bilirubin AST ALT Alkaline Phosphatase Troponin I High Sens B-Natriuretic Peptide Total Protein Albumin 2.8 L Lipase Urine Color Urine Appearance Urine pH Ur Specific [place] Urine Protein Urine Glucose (UA) Urine Ketones Urine Blood Urine Nitrite Ur Leukocyte Esterase Urine RBC Urine WBC Urine WBC Clumps Ur Squamous Epith Cells Urine Bacteria Hyaline Casts Influenza Type A (PCR) Influenza Type B (PCR) RSV RNA Qual (PCR) SARS-CoV-2 RNA (RT-PCR) Progress Note: A&P Assessment and plan (1) UTI (urinary tract infection): Status: Acute (2) Septic shock: Status: Acute Plan Assessment: 72-year-old gentleman admitted with Gram-negative sepsis secondary to source, briefly requiring pressor support Plan: Neuro: No acute issues. underlying history of CVA with right hemiparesis and some aphasia. Cardiac: Titrated off pressors. Underlying history of hypertension. Pulmonary: No acute issues. Renal: No acute issues. Endo: No acute issues. GI: No acute issues. ID: Gram-negative sepsis with source. Cultures are pending. Continue Cefepime. Heme/Onc: No acute issues. Psych: No acute issues. Miscellaneous: No acute issues. Prophylaxis: Heparin Diet: regular Quality Stroke Does the patient have a stroke diagnosis?: No VTE Prior VTE?: No VTE Risk Level:: Medical - moderate - high VTE Device Contraindication: N/A - Device Ordered VTE Drug Contraindication: N/A - Med Ordered
[2022-08-14] MEDS: cefEPime HCl 1 GM in 0.9 % Sodium Chloride 50 ML IV ×2 (11:54→22:44)
--- NOTE | 2022-08-14 12:39 | MHC.CM.PN ---
Call placed to daughter for CM assessment- awaiting return phone call.
--- NOTE | 2022-08-14 14:27 | PM.EVENT ---
Event Note Date of Service: 08/14/22 Event Note: hospitalist acceptance note 72yo M LTC resident at [facility] at [place] with hx CVA with residual R hemiparesis + aphasia admitted to ICU 08/13/22 for brief pressor support for GNR sepsis, weaned off pressors UCx growing GNRs, BCx NGTD BP 164/81 WBCs 22.4->15.5 CT ?bibasilar groundglass opacities, possibly pneumonia. PCT 6+ Transferred to [facility], continue cefepime, follow BCx + UCx NPO pending LENS SHAPER GRINDER consultation Time Spent With Patient Time: Total time managing care of this patient today ____ minutes.
[2022-08-14 15:05] LABS: Procalcitonin 6.07 ng/mL
--- NOTE | 2022-08-14 16:27 | MHC.SL.SWA ---
Speech Pathologist Impression: Risk of aspiration, oropharyngeal dysphagia Risk of Aspiration Due to:Hx CVA Dysphasia Diet Status: NPO Liquid Consistency and Strategies for Safe Swallow: Liquid Intake Recommendation: NPO Solid Food Consistency: Dietary Recommendations: NPO Additional Modifications to Solid Foods: Pt gagging and coughing on trials of nectar thickened juice, spit out small amounts of applesauce. Recommend NPO status at this time, pending HIDES SOAKER re-assessment. Frequent oral care daily, ice chips for comfort, ensure head of bed is elevated at least 30 degrees. Notified MD, RN, RD via [employer] Message. Oral Medication Intake: NPO Please contact the pharmacy regarding appropriate crushable or liquid drug formulations that are available whenever modified delivery is recommended. Supervision While Eating and Drinking for Safe Swallow: PO with HIDES SOAKER Recommendation for Speech: Inpatient Speech Therapy repeat-MBSS should pt's concerns persist Information Tech Clinican/Clinical Fellow: No Supervisory Statement: I have reviewed and agree with the student/clinical fellow's documentation: N/A Speech Language Pathologist: Sarita Motta M.A., CCC-HIDES SOAKER
--- NOTE | 2022-08-14 22:17 | ECG_ITS ---
Test Reason : CP Blood Pressure : / mmHG Vent. Rate : 108 BPM Atrial Rate : 000 BPM P-R Int : 000 ms QRS Dur : 080 ms QT Int : 300 ms P-R-T Axes : 000 040 012 degrees QTc Int : 402 ms Atrial fibrillation with rapid ventricular response with premature ventricular or aberrantly conducted complexes Abnormal ECG When compared to the previous EKG of Atrial fibrillation Present Referred By: Inez Byers Electronically Signed By:Adam Feldman
--- NOTE | 2022-08-14 22:31 | PC.NURSE ---
2200 hour: Patient with multiple runs of vtach on monitor (8/5/9 beats) HR non-sustained/ intermittently into 130's.. Pt asymptomatic. Dr. Navarrete notified, EKG obtained showing new afib RVR HR low 100's. notified with orders placed for IV metoprolol, labs.
[2022-08-14] MEDS: Metoprolol Tartrate 5 MG/5 ML VIAL IVPUSH (22:41)
--- NOTE | 2022-08-14 23:01 | PC.NURSE ---
Patient converted from afib low 100's to NSR 90's.
[2022-08-14 23:08] LABS: Anion Gap 16 (12-20); Blood Urea Nitrogen 17 mg/dL (9-16); Carbon Dioxide 20 mmol/L (22-29); Chloride 115 mmol/L (96-108); Creatinine Clr Calc Pharmacy 85.4; Estimated Glomerular Filt Rate > 60; Glucose Random 101 mg/dL (60-115); Potassium 3.7 mmol/L (3.3-5.1); Sodium 147 mmol/L (135-145)
[2022-08-15] VITALS (19 sets, daily range): BP systolic 127–154; BP diastolic 71–100; PULSE 70–123; RESP 15–30; TEMP 36.3–37.8; O2SAT 77–99; BMI 28.9
[2022-08-15] MEDS: Albumin Human 25 % 100 ML IV (02:01)
[2022-08-15] MEDS: Metoprolol Tartrate 5 MG/5 ML VIAL IVPUSH ×2 (05:13→22:21)
[2022-08-15] MEDS: Heparin Sodium,Porcine 5,000 UNIT/ML VIAL 5000 UNIT SUBCUT ×2 (05:34→16:42)
--- NOTE | 2022-08-15 05:39 | PM.EVENT ---
Event Note Date of Service: 08/15/22 Event Note: Received message from nurse the patient is in AFib with RVR with hypoxia in the 70s. On my exam patient noted to be tachypneic, has rattle in his throat sounds like he is unable to cough or swallow well. Is placed on continuous pulse ox on OxyMask satting 91-92%. We attempted to deep suction the patient but he was not able to tolerate. Placed on high-flow. Chest x-ray on my read shows multiple focal patchy areas, concerning for aspiration. Patient already made NPO. At this time will continue high-flow, labs ordered, will give 5 of Lopressor for the tachycardia with RVR. And 2 mg of morphine for respiratory distress. Time Spent With Patient Time: Total time managing care of this patient today ____ minutes.
[2022-08-15] MEDS: Acetaminophen Supp 650 MG SUPP.RECT PR (05:44)
[2022-08-15] MEDS: Morphine Sulfate 2 MG/ML CARTRIDGE IVPUSH (05:46)
--- NOTE | 2022-08-15 06:23 | PC.NURSE ---
Just before 0500 hour, patient noted on tele monitor to have converted back into afib RVR HR into 130's. RN immediately responded to patient's room, found patient to be tachypneic with RR in 30's, patient with new audible rattling in upper airway/back of mouth despite HOB elevated for aspiration precautions (has been NPO for shift). Patient suctioned with yankauer for small amount of frothy bloody secretions and sat probe placed showing 77% on room air. NRB at 15L placed with spo2 improved to lower 90's. +Strong gag noted with oral suctioning. Respiratory and Dr. Navarrete notified and to bedside, deep suctioning attempted by RT. orders for IV metoprolol, CXR, HFNC, rectal tylenol (temp 100.0 rectally), and 2mg morphine for work of breathing. Since IV metoprolol, patient has converted into sinus tach low 100's (<110), spo2 97% on HFNC. In-room camera also placed by nursing foam cutting supervisor who presented to bedside, as pt is frequently pulling off his HFNC despite education. Bed alarm on and safety measures in place.
[2022-08-15 06:49] LABS: Basophils Percent Auto 0.2 % (0-2); Eosinophils Percent Auto 0.1 % (0-4); Hematocrit 34.4 % (42.0-52.0); Hemoglobin 10.9 g/dl (14.0-18.0); Imm Gran Pct Auto 0.8 % (0.0-0.4); Lymphocytes Absolute Auto 0.6 X10*3/uL (1.2-4.9); Lymphocytes Percent Auto 4.5 % (20-40); MANUAL DIFF FLAG SCAN; Mean Corpuscular HGB Conc 31.7 g/dl (31.0-36.0); Mean Corpuscular Volume 78.9 fL (80.0-98.0); Monocytes Absolute Auto 0.5 X10*3/uL (0.1-1.2); Monocytes Percent Auto 3.5 % (2-11); Neutrophils Absolute Auto 11.8 x10*3/uL (2.0-8.3); Neutrophils Percent Auto 90.9 % (45-73); Platelet Count 128 X10*3/uL (160-400); Red Blood Count 4.36 X10*6/uL (4.60-5.80); Red Cell Distribution Width 17.3 % (11.0-16.0); SCAN SMEAR FLAG 1
--- NOTE | 2022-08-15 07:00 | CA_ITS ---
Transthoracic Echocardiogram Patient (Last, First, Middle): Steven Hamilton, Gender: Male Date of : 1950 Age: 72 Procedure Date: 08/15/2022 Procedure Type: Transthoracic Echocardiogram Location: [facility] [place] Height: 177.8 cm Weight: 91.17 kg BSA: 2.09 m2 Heart Rate: 89 bpm BP: 149 / 85 mmHg Project/Production Manager Imaging: SB Referring MD: Inez Byers MD Symptoms: AF,CHF Study Quality: Fair ECG Rhythm: Sinus Conclusions: - Technically limited study. - Hyperdynamic LV function. - Valves not well visualized but doppler assessment appears to be normal. Findings Procedure Information Contrast agent, definity, is being given per protocol without apparent complications. The quality of the study was despite the use of contrast and endocardial definition remains poor. The study quality is limited by lung artifact. Left Ventricle Normal left ventricular cavity size. The left ventricular systolic function is hyperdynamic. The visually estimated ejection fraction is >70%. There is no evidence of regional wall motion abnormalities. Diastolic function is normal for age. Right Ventricle The right ventricle was not well visualized. Atria The left atrium was not well visualized. Aortic Valve The aortic valve was not well visualized. There is no aortic valve stenosis. There is no aortic valve regurgitation. Mitral Valve The mitral valve was not well visualized. There is no mitral valve regurgitation. There is no mitral valve stenosis. Pulmonic Valve The pulmonic valve was not well visualized. Tricuspid Valve The tricuspid valve was not well visualized. Tricuspid regurgitation envelope is inadequate for calculation of right ventricular systolic pressure. Moderately elevated right atrial pressure. Great Vessels The aorta was not well visualized. The pulmonary artery was not well visualized. Venous The inferior vena cava is dilated and collapses greater than 50% with inspiration. Pericardium/Pleural Prominent epicardial adipose tissue noted. There is no evidence of pericardial effusion. Prior Study Comparison No prior study available for comparison. Measurements 2D Linear Measurements LVOT Diam: 2.00 3.0+(-)1.3 cm 2D Systolic Function EF 4C: 69.70 >55% Mitral Valve MV Pk E: 0.90 MV PK A: 0.63 MV Decel Time: 175.00 E/A: 1.40 E'Lateral: 9.79 E'Medial: 7.40 E/E' Med: 12.20 E/E' Lat: 9.20 PHT: 51.00 MVA PHT: 4.31 Decel [place]: 5.16 Aortic Valve AoV Pk Quang: 1.12 AoV Pk Grad: 5.00 PENELOPE: 2.62 LVOT LVOT Pk Quang: 0.93 LVOT Mn Quang: 0.63 LVOT VTI: 0.19 LVOT Pk Grad: 3.00 LVOT Mn Grad: 2.00 LVOT Diam: 2.00 LVOT Area: 3.14 Diastolic Function MV Pk E: 0.90 MV Pk A: 0.63 E/A: 1.40 E'Medial: 7.40 E/E' Med: 12.20 E' Laterial: 9.79 E/E' Lat: 9.20 Right Ventricle TVS' Quang: 11.40 Tricuspid Valve RA Press: 3.00 Great Vessels Aorta Sinus of Valsalva: 3.50 2.0-3.5 cm Updated in Other Vendor System with Status of Final Adam Feldman MD electronically signed on 08/16/2022 6:55:23 PM with status of Final
[2022-08-15 07:02] LABS: Vancomycin Random 8.4 mcg/mL (15-20)
[2022-08-15 07:03] LABS: Albumin Level 3.8 g/dL (3.5-5.0); Anion Gap 14 (12-20); Blood Urea Nitrogen 20 mg/dL (9-16); Calcium 9.3 mg/dL (8.4-10.2); Carbon Dioxide 21 mmol/L (22-29); Chloride 116 mmol/L (96-108); Estimated Glomerular Filt Rate > 60; Glucose Random 112 mg/dL (60-115); Phosphorus 2.4 mg/dL (2.7-4.5); Potassium 3.6 mmol/L (3.3-5.1); Sodium 147 mmol/L (135-145)
[2022-08-15 07:08] LABS: SLIDE REVIEW VERIFIED
[2022-08-15] MEDS: Furosemide 40 MG/4 ML VIAL IVPUSH ×2 (07:55→16:42)
[2022-08-15 07:57] LABS: ABG Base Excess -3.3 mmol/L; ABG HCO3 20 mmol/L (22-26); ABG pCO2 33 mmHg (32-45); ABG pH 7.39 (7.35-7.45); ABG pO2 221 mmHg (83-108)
--- NOTE | 2022-08-15 08:15 | MHC.RECOVSUP ---
pt remians on HFNC 50l/60% fi02. ABG done: 7.40-89-905-20 on HFNC 50L 90%. No resp distress noted remains slightly tachypnic with rr mid 20's. p is a DNI and NO NIV per MOLST form. Dr. Byers ordered 40 lasix. pt does have coarse crackles gal throughout. Will continue to monitor and assess.
--- NOTE | 2022-08-15 08:55 | MHC.CM.PN ---
Patient is a LTC, [facility] bed hold at [facility]. CM will follow.
[2022-08-15] MEDS: Metoprolol Tartrate 5 MG/5 ML VIAL 2.5 MG IVPUSH ×3 (09:12→20:48)
[2022-08-15 09:50] LABS: B Type Natriuretic Peptide 802 pg/mL (<100)
--- NOTE | 2022-08-15 09:59 | MHC.SPEECHCO ---
Per MD, INSURANCE COMPLIANCE ANALYST to hold of re-assessment today, re-attempt tomorrow. MD aware of documented aspiration and Pt non-compliance to recommendations.
--- NOTE | 2022-08-15 10:17 | P.PNIM_ITS ---
Subjective Subjective Date of Service: 08/15/22 Interval History: Overnight in AF/RVR and hypoxic to 70s Found to be tachypneic with difficulty managing secretions despite deep suctioning CXR with worsening R-sided infiltrates concerning for aspiration vs. edema Pt placed on HFNC Converted to sinus tach ABG this am 7. Called pt's daughter/HCP Xochitl and reviewed MOLST- pt is DNI and does not want NIPPV either Pt nonverbal but alert, able to shake head yes/no. This is his post-CVA baseline per daughter. Review of Systems Review of Systems: Yes Unobtainable due to mental condition Physical Exam Vital Signs: Vital Signs: Last Vital Signs Temp 98.8 F 08/15/22 07:52 Pulse 103 H 08/15/22 07:52 Resp 24 H 08/15/22 08:12 BP 149/85 H 08/15/22 07:52 Pulse Ox 99 08/15/22 07:52 O2 Del Method Oxymask 08/15/22 07:52 O2 Flow Rate 50 08/15/22 07:52 BMI result Body Mass Index 28.9 Gen: in moderate respiratory distress, tachypneic HEENT: sclera anicteric, moist mucus membranes Neck: supple Lungs: coarse wet crackles R>L Heart: regular rate, rapid, no murmurs Abd: soft, non-tender, non-distended Ext: no edema Skin: warm/well-perfused Neuro: alert, nonverbal, R hemiparesis Psych: appropriate affect Objective Data Active Medications Acetaminophen (Acetaminophen Supp 650 Mg Supp.Rect) 650 mg TX Q6H PRN PRN Reason: fever Last Admin: 08/15/22 05:44 Dose: 650 mg Documented By: AJAY Albuterol/Ipratropium (Albuterol/Iprat 2.5/0.5mg 3 Ml Ampul.Neb) 3 ml INHALE RQ4H WHILE AWAKE PRN PRN Reason: dyspnea/wheezing Artificial Tears (Artificial Tears 15 Ml Drops) 1 drop EYE-BOTH Q4H PRN PRN Reason: Dry Eyes Furosemide (Furosemide 40 Mg/4 Ml Vial) 40 mg IVPUSH BID@0900,1800 JUAN; Protocol Heparin Sodium (Porcine) (Heparin Sodium,Porcine 5,000 Unit/Ml Vial) 5,000 unit SUBCUT Q12H JUAN Last Admin: 08/15/22 05:34 Dose: 5,000 unit Documented By: AJAY Cefepime HCl 1 gm/ Sodium (Chloride) 50 mls @ 100 mls/hr IV Q12H [facility] Last Infusion: 08/14/22 23:24 Dose: 0 mls/hr Documented By: GEORGINA Metoprolol Tartrate (Metoprolol Tartrate 5 Mg/5 Ml Vial) 2.5 mg IVPUSH Q6H [facility] Last Admin: 08/15/22 09:12 Dose: 2.5 mg Documented By: MARIA TERESA Pharmacy Consult (Consult Rx Perform Med Rec) 1 each MISCELLANE ONCE PRN PRN Reason: Consult order Labs 08/15/22 06:12 08/15/22 06:12 Labs: Laboratory Results - last 24 hr 08/14/22 08/14/22 08/15/22 05:25 22:39 06:12 MCV 78.9 L MCH 25.0 L MCHC 31.7 RDW 17.3 H Plt Count 128 L D MPV 12.0 Immature Gran % (Auto) 0.8 H Neut % (Auto) 90.9 H Lymph % (Auto) 4.5 L [place] % (Auto) 3.5 Eos % (Auto) 0.1 Baso % (Auto) 0.2 Lymph # (Auto) 0.6 L [place] # (Auto) 0.5 Eos # (Auto) 0.0 Baso # (Auto) 0.0 Abs Immat Gran (auto) 0.10 H Absolute Neuts (auto) 11.8 H Absolute Nucleated RBC 0.000 Nucleated RBC % (auto) 0.0 Smear Tech's Comments VERIFIED O2 Saturation ABG pH at Pt Temp ABG pCO2 at Pt Temp ABG pO2 at Pt Temp ABG HCO3 ABG Base Excess (Actual) Anion Gap 16 Estim Creat Clear Calc 85.4 Estimated GFR > 60 Random Glucose 101 Calcium 9.0 D Phosphorus Magnesium 2.0 B-Natriuretic Peptide Albumin Procalcitonin 6.07 Random Vancomycin 08/15/22 08/15/22 08/15/22 06:12 06:12 07:50 MCV MCH MCHC RDW Plt Count MPV Immature Gran % (Auto) Neut % (Auto) Lymph % (Auto) [place] % (Auto) Eos % (Auto) Baso % (Auto) Lymph # (Auto) [place] # (Auto) Eos # (Auto) Baso # (Auto) Abs Immat Gran (auto) Absolute Neuts (auto) Absolute Nucleated RBC Nucleated RBC % (auto) Smear Tech's Comments O2 Saturation 100.0 ABG pH at Pt Temp 7.39 ABG pCO2 at Pt Temp 33 ABG pO2 at Pt Temp 221 H ABG HCO3 20 L ABG Base Excess (Actual) -3.3 Anion Gap 14 Estim Creat Clear Calc 84.0 Estimated GFR > 60 Random Glucose 112 Calcium 9.3 Phosphorus 2.4 L Magnesium 2.0 B-Natriuretic Peptide Albumin 3.8 Procalcitonin Random Vancomycin 8.4 L 08/15/22 08:21 MCV MCH MCHC RDW Plt Count MPV Immature Gran % (Auto) Neut % (Auto) Lymph % (Auto) [place] % (Auto) Eos % (Auto) Baso % (Auto) Lymph # (Auto) [place] # (Auto) Eos # (Auto) Baso # (Auto) Abs Immat Gran (auto) Absolute Neuts (auto) Absolute Nucleated RBC Nucleated RBC % (auto) Smear Tech's Comments O2 Saturation ABG pH at Pt Temp ABG pCO2 at Pt Temp ABG pO2 at Pt Temp ABG HCO3 ABG Base Excess (Actual) Anion Gap Estim Creat Clear Calc Estimated GFR Random Glucose Calcium Phosphorus Magnesium B-Natriuretic Peptide 802 H Albumin Procalcitonin Random Vancomycin Microbiology Microbiology Results: Microbiology 08/13/22 Unknown Urine Culture - Final Urine clean catch - Urine cornejo top Escherichia coli 08/13/22 12:42 Blood Culture - Preliminary Blood - Venous No growth after 24 hours. 08/13/22 11:53 Blood Culture - Preliminary Blood - Venous No growth after 24 hours. Assessment and Plan (1) Aspiration pneumonitis: Status: Acute (2) Septic shock: Status: Acute Plan 72yo M LTC resident at [facility] [place] with hx CVA with residual R hemiparesis + aphasia admitted to ICU 08/13/22 for brief pressor support for sepsis due to UTI, weaned off pressors rapidly and stepped down to IMC 08/14/22 UCx growing GNRs, BCx NGTD developed hypoxic respiratory failure likely due to acute/chronic aspiration as well as HF # acute hypoxic respiratory failure due to aspiration + HF - HFNC, wean as tolerated - suction secretions, keep NPO - diurese as below # ADHF, unknown EF - give IV furosemide, monitor BNP + I/O + lytes, continue metoprolol but IV given NPO # septic shock - resolved, now hypertensive - treat urinary source with cefepime d#2, should also cover aspiration PNA, trend PCT, follow UCx/BCx # paroxysmal AF - brief, limited and due to acute respiratory issue; monitor for recurrence # aspiration - NPO, ROLLER MILL TENDER evaluation daily. Per hx, had MBSS 06/23/22 that showed aspiration and signed a form at his SNF stating he wished to continue drinking thin liquids and eating a regular diet despite knowing risks # hx CVA - hold statin + clopidogrel as NPO # VTE ppx: UFH # dispo: eventual return to SNF In my clinical judgment, the patient requires continued inpatient hospitalization for the following reasons: hypoxia, IV ABX Time Spent With Patient Time: Total time managing care of this patient today __65__ minutes. Quality Stroke Does the patient have a stroke diagnosis?: No VTE Prior VTE?: No VTE Risk Level:: Medical - moderate - high VTE Device Contraindication: N/A - Device Ordered VTE Drug Contraindication: N/A - Med Ordered
[2022-08-15] MEDS: cefEPime HCl 1 GM in 0.9 % Sodium Chloride 50 ML IV ×2 (12:16→22:47)
[2022-08-15 13:54] LABS: ABG Refer to POC result
--- NOTE | 2022-08-15 21:59 | ECG_ITS ---
Test Reason : CP Blood Pressure : / mmHG Vent. Rate : 134 BPM Atrial Rate : 000 BPM P-R Int : 000 ms QRS Dur : 078 ms QT Int : 332 ms P-R-T Axes : 000 009 -15 degrees QTc Int : 495 ms Atrial fibrillation with rapid ventricular response Nonspecific ST and T wave abnormality Abnormal ECG When compared with ECG of 14-AUG-2022 22:17, Nonspecific T wave abnormality now evident in Anterior leads Referred By: Inez Byers Electronically Signed By:Adam Feldman
[2022-08-15 23:20] LABS: Anion Gap 19 (12-20); Blood Urea Nitrogen 20 mg/dL (9-16); Calcium 9.9 mg/dL (8.4-10.2); Carbon Dioxide 24 mmol/L (22-29); Chloride 111 mmol/L (96-108); Creatinine Clr Calc Pharmacy 75.5; Estimated Glomerular Filt Rate > 60; Glucose Random 118 mg/dL (60-115); Sodium 151 mmol/L (135-145)
[2022-08-15] MEDS: Lactated Ringers 1,000 ML 100 ML IVCONT (23:35)
[2022-08-15] MEDS: Potassium Chloride/H20 10 MEQ/100 ML PIGGYBACK 100 MEQ IV (23:42)
[2022-08-16] VITALS (12 sets, daily range): BP systolic 119–156; BP diastolic 71–87; PULSE 77–98; RESP 16–20; TEMP 36.6–37.1; O2SAT 92–95; BMI 26.0
[2022-08-16] MEDS: dilTIAZem HCL 50 MG/10 ML VIAL 10 MG IVPUSH (00:36)
[2022-08-16] MEDS: Potassium Chloride/H20 10 MEQ/100 ML PIGGYBACK 100 MEQ IV ×3 (00:39→02:45)
[2022-08-16] MEDS: Metoprolol Tartrate 5 MG/5 ML VIAL 2.5 MG IVPUSH ×4 (02:46→22:04)
[2022-08-16] MEDS: Heparin Sodium,Porcine 5,000 UNIT/ML VIAL 5000 UNIT SUBCUT (06:31)
[2022-08-16 06:48] LABS: Hematocrit 36.4 % (42.0-52.0); Hemoglobin 11.4 g/dl (14.0-18.0); Mean Corpuscular HGB Conc 31.3 g/dl (31.0-36.0); Mean Corpuscular Hemoglobin 24.7 pg (27.0-33.0); Mean Corpuscular Volume 78.8 fL (80.0-98.0); Mean Platelet Volume 10.9 fL (9.4-12.4); Platelet Count 154 X10*3/uL (160-400); Red Blood Count 4.62 X10*6/uL (4.60-5.80); Red Cell Distribution Width 17.2 % (11.0-16.0); White Blood Count 9.1 X10*3/uL (4.8-10.8)
[2022-08-16 07:19] LABS: Alanine Aminotransferase 7 U/L (0-40); Albumin Level 3.8 g/dL (3.5-5.0); Alkaline Phosphatase 68 U/L (39-117); Anion Gap 11 (12-20); Aspartate Amino Transferase 10 U/L (5-37); Bilirubin Total 1.5 mg/dL (0.0-1.0); Blood Urea Nitrogen 24 mg/dL (9-16); Calcium 9.5 mg/dL (8.4-10.2); Carbon Dioxide 27 mmol/L (22-29); Chloride 110 mmol/L (96-108); Creatinine Clr Calc Pharmacy 72.2; Estimated Glomerular Filt Rate > 60; Glucose Random 108 mg/dL (60-115); Potassium 3.3 mmol/L (3.3-5.1); Sodium 145 mmol/L (135-145); Total Protein 6.9 g/dL (6.5-8.0)
[2022-08-16 07:34] LABS: Procalcitonin 2.29 ng/mL
[2022-08-16 08:19] LABS: B Type Natriuretic Peptide 459 pg/mL (<100)
[2022-08-16] MEDS: Furosemide 40 MG/4 ML VIAL IVPUSH ×2 (08:30→17:36)
--- NOTE | 2022-08-16 10:25 | MHC.CM.PN ---
Per MD, Patient's HCP is invoked. Patient is on high flow O2 and is not yet medically cleared to return to LTC. CM will follow.
--- NOTE | 2022-08-16 10:50 | P.PNIM_ITS ---
Subjective Subjective Date of Service: 08/16/22 Interval History: Breathing improved No chest pain Able to nod yes/no Review of Systems Review of Systems: Yes all other systems are reviewed and are negative Physical Exam Vital Signs: Vital Signs: Last Vital Signs Temp 98.0 F 08/16/22 07:14 Pulse 82 08/16/22 07:14 Resp 18 08/16/22 07:51 BP 136/71 08/16/22 07:14 Pulse Ox 94 08/16/22 07:14 O2 Del Method High Flow Nasal C annula 08/16/22 07:14 O2 Flow Rate 40 08/16/22 07:14 FiO2 45 08/16/22 07:14 BMI result Body Mass Index 26.0 Gen: NAD, on 40% fiO2 @ 40 Lpm HEENT: sclera anicteric, moist mucus membranes Neck: supple Lungs: diminished Heart: regular rate, rapid, no murmurs Abd: soft, non-tender, non-distended Ext: no edema Skin: warm/well-perfused Neuro: alert, nonverbal, R hemiparesis Psych: appropriate affect Objective Data Active Medications Acetaminophen (Acetaminophen Supp 650 Mg Supp.Rect) 650 mg NH Q6H PRN PRN Reason: fever Last Admin: 08/15/22 05:44 Dose: 650 mg Documented By: AJAY Albuterol/Ipratropium (Albuterol/Iprat 2.5/0.5mg 3 Ml Ampul.Neb) 3 ml INHALE RQ4H WHILE AWAKE PRN PRN Reason: dyspnea/wheezing Artificial Tears (Artificial Tears 15 Ml Drops) 1 drop EYE-BOTH Q4H PRN PRN Reason: Dry Eyes Furosemide (Furosemide 40 Mg/4 Ml Vial) 40 mg IVPUSH BID@0900,1800 [facility]; Protocol Last Admin: 08/16/22 08:30 Dose: 40 mg Documented By: YASMINE Heparin Sodium (Porcine) (Heparin Sodium,Porcine 5,000 Unit/Ml Vial) 5,000 unit SUBCUT Q12H [facility] Last Admin: 08/16/22 06:31 Dose: 5,000 unit Documented By: AJAY Cefepime HCl 1 gm/ Sodium (Chloride) 50 mls @ 100 mls/hr IV Q12H [facility] Last Infusion: 08/15/22 23:18 Dose: 0 mls/hr Documented By: AJAY Metoprolol Tartrate (Metoprolol Tartrate 5 Mg/5 Ml Vial) 2.5 mg IVPUSH Q6H [facility] Last Admin: 08/16/22 08:30 Dose: 2.5 mg Documented By: YASMINE Pharmacy Consult (Consult Rx Perform Med Rec) 1 each MISCELLANE ONCE PRN PRN Reason: Consult order Labs 08/16/22 06:17 08/16/22 06:17 Labs: Laboratory Results - last 24 hr 08/15/22 08/16/22 08/16/22 22:50 06:17 06:17 MCV 78.8 L MCH 24.7 L MCHC 31.3 RDW 17.2 H Plt Count 154 L MPV 10.9 Absolute Nucleated RBC 0.000 Nucleated RBC % (auto) 0.0 Anion Gap 19 11 L Estim Creat Clear Calc 75.5 72.2 Estimated GFR > 60 > 60 Random Glucose 118 H 108 Calcium 9.9 D 9.5 Magnesium 2.0 2.0 Total Bilirubin 1.5 H AST 10 ALT 7 Alkaline Phosphatase 68 B-Natriuretic Peptide Total Protein 6.9 Albumin 3.8 Procalcitonin 2.29 08/16/22 06:17 MCV MCH MCHC RDW Plt Count MPV Absolute Nucleated RBC Nucleated RBC % (auto) Anion Gap Estim Creat Clear Calc Estimated GFR Random Glucose Calcium Magnesium Total Bilirubin AST ALT Alkaline Phosphatase B-Natriuretic Peptide 459 H Total Protein Albumin Procalcitonin Microbiology Microbiology Results: Microbiology 08/13/22 12:42 Blood Culture - Preliminary Blood - Venous No growth after 48 hours. 08/13/22 11:53 Blood Culture - Preliminary Blood - Venous No growth after 48 hours. 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 admitted to ICU 08/13/22 for brief pressor support for sepsis due to UTI, weaned off pressors rapidly and stepped down to IMC 08/14/22 UCx growing E coli, BCx NGTD developed hypoxic respiratory failure likely due to acute/chronic aspiration as well as HF # acute hypoxic respiratory failure due to aspiration + HF - HFNC, wean as tolerated - suction secretions, keep NPO, known to be chronic aspirator - diurese as below # ADHF, unknown EF - give IV furosemide, monitor BNP + I/O + lytes, continue metoprolol but IV given NPO - TTE pending # paroxysmal AF - IV metoprolol, TTE, Cardiology consultation - CVA prevention with LMWH # septic shock - resolved, now hypertensive - treat urinary source [E coli I to quinolones] with cefepime d#3, should also cover aspiration PNA, trend PCT, follow BCx # aspiration - NPO, JEEP DRIVER evaluation daily. Per hx, had MBSS 06/23/22 that showed aspiration and signed a form at his SNF stating he wished to continue drinking thin liquids and eating a regular diet despite knowing risks - pt has previously signed MOLST declining tube feeds # hx CVA - hold statin + clopidogrel as NPO # VTE ppx: LMWH # dispo: eventual return to SNF In my clinical judgment, the patient requires continued inpatient hos pitalization for the following reasons: hypoxia, IV ABX Time Spent With Patient Time: Total time managing care of this patient today __50__ minutes. Quality Stroke Does the patient have a stroke diagnosis?: No VTE Prior VTE?: No VTE Risk Level:: Medical - moderate - high VTE Device Contraindication: N/A - Device Ordered VTE Drug Contraindication: N/A - Med Ordered
--- NOTE | 2022-08-16 10:58 | MHC.CM.PN ---
A copy of the HCP has been placed on the chart and uploaded into [facility].
[2022-08-16] MEDS: cefEPime HCl 1 GM in 0.9 % Sodium Chloride 50 ML IV ×2 (11:07→23:42)
[2022-08-16] MEDS: Enoxaparin Sodium 120 MG/0.8 ML SYRINGE SUBCUT (11:09)
--- NOTE | 2022-08-16 16:52 | PM.CNCAR ---
History of Present Illness History of Present Illness Date of Service: 08/16/22 Requesting physician: Inez Byers Chief complaint: PAF Narrative: 72-year-old gentleman with previous CVA effect in the right side of his body and history of aspiration presenting with aspiration pneumonia and urinary tract infection. He is on antibiotics. He was noticed to be in AFib with RVR. At this point he has reverted back to sinus rhythm. He is on high-flow oxygen currently. It appears he does not follow the dietary advice and is quite prone to aspiration. Denying any significant symptoms right now. [facility] Past Medical History Medical History CVA (cerebral vascular accident) Mixed hyperlipidemia Social History Social History Household Members: Unknown / Unable to assess Unable to assess alcohol history related to: Unknown Alcohol intake: former Patient Tobacco Use Status: Never used Tobacco Advance Directives Date on File: 01/16/22 service: No Current occupational status: disabled Meds Allergies Allergy/AdvReac Type Severity Reaction Status Date / Time No Known Allergies Allergy Verified 04/08/22 00:58 [No Known Allergies*] Active Medications: Current Medications Acetaminophen (Acetaminophen Supp 650 Mg Supp.Rect) 650 mg CO Q6H PRN PRN Reason: fever Last Admin: 08/15/22 05:44 Dose: 650 mg Albuterol/Ipratropium (Albuterol/Iprat 2.5/0.5mg 3 Ml Ampul.Neb) 3 ml INHALE RQ4H WHILE AWAKE PRN PRN Reason: dyspnea/wheezing Artificial Tears (Artificial Tears 15 Ml Drops) 1 drop EYE-BOTH Q4H PRN PRN Reason: Dry Eyes Enoxaparin Sodium (Enoxaparin Sodium 120 Mg/0.8 Ml Syringe) 120 mg 1.5 mg/kg (120 mg) SUBCUT Q24H [facility] Last Admin: 08/16/22 11:09 Dose: 120 mg Furosemide (Furosemide 40 Mg/4 Ml Vial) 40 mg IVPUSH BID@0900,1800 [facility]; Protocol Last Admin: 08/16/22 08:30 Dose: 40 mg Cefepime HCl 1 gm/ Sodium (Chloride) 50 mls @ 100 mls/hr IV Q12H [facility] Last Infusion: 08/16/22 11:45 Dose: Infused Metoprolol Tartrate (Metoprolol Tartrate 5 Mg/5 Ml Vial) 2.5 mg IVPUSH Q6H [facility] Last Admin: 08/16/22 15:02 Dose: 2.5 mg Pharmacy Consult (Consult Rx Perform Med Rec) 1 each MISCELLANE ONCE PRN PRN Reason: Consult order Home Medications Medication Instructions Recorded Confirmed Last Taken Type acetaminophen 325 mg tablet 650 mg PO Q4H PRN Pain 04/08/22 08/13/22 Unknown History albuterol sulfate 90 mcg/actuation 2 puff inhalation Q4H PRN 04/08/22 08/13/22 Unknown History aerosol inhaler Shortness Of Breath amitriptyline 25 mg tablet 25 mg PO BEDTIME 04/08/22 08/13/22 Unknown History atorvastatin 20 mg tablet 20 mg PO BEDTIME 04/08/22 08/13/22 Unknown History baclofen 10 mg tablet 30 mg PO TID 04/08/22 08/13/22 Unknown History clopidogrel 75 mg tablet 75 mg PO DAILY 04/08/22 08/13/22 Unknown History hydralazine 25 mg tablet 1 tab PO Q6H PRN Increased Blood 04/08/22 08/13/22 Unknown History Pressure lactulose 10 gram/15 mL oral 30 ml PO Q2D PRN Constipation 04/08/22 08/13/22 Unknown History solution melatonin 5 mg tablet 5 mg PO BEDTIME 04/08/22 08/13/22 Unknown History metoprolol tartrate 25 mg tablet 25 mg PO BID 04/08/22 08/13/22 Unknown History nystatin 100,000 unit/gram topical 1 applic topical Q8H PRN Rash 04/08/22 08/13/22 Unknown History powder (Nystop) oxycodone 5 mg tablet 1 tab PO Q6H PRN Pain 04/08/22 08/13/22 Unknown History oxymetazoline 0.05 % nasal mist 1 spray intranasal Q12H PRN Sinus 04/08/22 08/13/22 Unknown History (Afrin (oxymetazoline)) Symptoms pregabalin 100 mg capsule 100 mg PO TID 04/08/22 08/13/22 Unknown History bethanechol chloride 25 mg tablet 25 mg PO TID 08/13/22 08/13/22 Unknown History bisacodyl 10 mg rectal suppository 10 mg CO DAILY PRN Constipation 08/13/22 08/13/22 Unknown History gabapentin 100 mg capsule 100 mg PO BID 08/13/22 08/13/22 Unknown History guaifenesin 100 mg/5 mL oral liquid 200 mg PO Q4H PRN Cold Symptoms 08/13/22 08/13/22 Unknown History ipratropium 0.5 mg-albuterol 3 mg 3 ml inhalation Q4H PRN Shortness 08/13/22 08/13/22 Unknown History (2.5 mg base)/3 mL nebulization Of Breath soln sennosides 8.6 mg tablet (senna) 8.6 mg PO DAILY PRN Constipation 08/13/22 08/13/22 Unknown History sennosides 8.6 mg-docusate sodium 1 tab-cap PO BID 08/13/22 08/13/22 Unknown History 50 mg tablet (Senna Plus) sodium chloride 0.65 % nasal spray 1 spray intranasal Q8H PRN Dry 08/13/22 08/13/22 Unknown History aerosol (Saline Nasal) Nasal Passages sodium phosphates 19 gram-7 118 ml CO DAILY PRN Constipation 08/13/22 08/13/22 Unknown History gram/118 mL enema (Enema) tamsulosin 0.4 mg capsule 0.8 mg PO DAILY 08/13/22 08/13/22 Unknown History Physical Exam Vital Signs: Vital Signs: Last Vital Signs Temp 97.8 F 08/16/22 15:36 Pulse 79 08/16/22 15:36 Resp 16 08/16/22 15:36 BP 156/86 H 08/16/22 15:36 Pulse Ox 93 08/16/22 16:06 O2 Del Method Oxymask 08/16/22 16:06 O2 Flow Rate 6 08/16/22 16:06 FiO2 40 08/16/22 11:07 BMI result Body Mass Index 26.0 GENERAL APPEARANCE: in no acute distress, on supplemental oxygen. NECK: no carotid bruit, no jugular venous distention. SKIN: no suspicious lesions, warm and dry. HEART: no murmurs, regular rate and rhythm. LUNGS: clear to auscultation bilaterally. ABDOMEN: soft, nontender. EXTREMITIES: no edema. PERIPHERAL PULSES: equal. NEUROLOGIC: Right-sided hemiparesis. Objective Labs and Meds 08/16/22 06:17 08/16/22 06:17 Lab results: Laboratory Results - last 24 hr 08/15/22 08/16/22 08/16/22 22:50 06:17 06:17 WBC 9.1 RBC 4.62 Hgb 11.4 L Hct 36.4 L MCV 78.8 L MCH 24.7 L MCHC 31.3 RDW 17.2 H Plt Count 154 L MPV 10.9 Absolute Nucleated RBC 0.000 Nucleated RBC % (auto) 0.0 Sodium 151 H 145 Potassium 3.0 L 3.3 Chloride 111 H 110 H Carbon Dioxide 24 27 Anion Gap 19 11 L BUN 20 H 24 H Creatinine 0.99 0.94 Estim Creat Clear Calc 75.5 72.2 Estimated GFR > 60 > 60 Random Glucose 118 H 108 Calcium 9.9 D 9.5 Magnesium 2.0 2.0 Total Bilirubin 1.5 H AST 10 ALT 7 Alkaline Phosphatase 68 B-Natriuretic Peptide Total Protein 6.9 Albumin 3.8 Procalcitonin 2.29 08/16/22 06:17 WBC RBC Hgb Hct MCV MCH MCHC RDW Plt Count MPV Absolute Nucleated RBC Nucleated RBC % (auto) Sodium Potassium Chloride Carbon Dioxide Anion Gap BUN Creatinine Estim Creat Clear Calc Estimated GFR Random Glucose Calcium Magnesium Total Bilirubin AST ALT Alkaline Phosphatase B-Natriuretic Peptide 459 H Total Protein Albumin Procalcitonin Assessment and Plan (1) Paroxysmal atrial fibrillation with RVR: Status: Acute Plan 72-year-old gentleman presenting with aspiration and AFib with RVR. He is on cefepime currently for antibiotics. I think AFib is secondary to aspiration and resulting stress. He does not follow the diet restrictions unfortunately and may continue to aspirate. In these situations AFib is quite difficult to control because a catecholamine surge after aspiration may trigger it again. Does not appear to be significantly volume overloaded. Can be changed or diuretics at this point. Can be given metoprolol IV as needed for now daily he is able to tolerate p.o.. He is on enoxaparin for anticoagulation. He has high stroke risk and already had a stroke previously. If no bleeding concerns that anticoagulation is reasonable. Thank you for allowing me to participate in the care of your patient. Please feel free to contact me if you have any questions. Time Spent With Patient Time: Total time managing care of this patient today ____ minutes. Procedures Date of Service Date of Service: 08/16/22
--- NOTE | 2022-08-16 17:09 | MHC.SL.SWA ---
Speech Pathologist Impression: Oropharyngeal dysphagia Risk of Aspiration Due to: Pako aspiration on thin liquids via straw reported on 06/23/22 MBSS Dysphasia Diet Status: UPGRADE to puree solids and nectar thick liquids Liquid Consistency and Strategies for Safe Swallow: Liquid Intake Recommendation: [place] Thick Liquid Intake Strategies: Small Sips No Straws Liquids by Teaspoon Only Solid Food Consistency: Dietary Recommendations: Pureed (NDD1) Oral Medication Intake: Crushed with Puree Please contact the pharmacy regarding appropriate crushable or liquid drug formulations that are available whenever modified delivery is recommended. Compensatory Strategies and Precautions to be Taken for Safe Swallow: Sitting Upright (90 deg) No Straw Liquids from Spoon Small Bites and Sips Alternate Liquids/Solids Rate of Ingestion Change Oral Check Supervision While Eating and Drinking for Safe Swallow: Total Assistance (1:1) Swallowing Recommended Treatments: Compens. Strategy Educat. Recommendation for Speech: Inpatient Speech Therapy Recommend UPGRADE to puree solids (NDD1) and nectar thick liquids via TEASPOON ONLY. Recommend pills CRUSHED in PUREE. Patient requires 1-1 feed. Ice chips okay between meals w/ nursing supervision; must be provided with oral care and only 1 hour+ before/after thickened liquids or solid foods. Allow patient to initiate mouth closing and readiness to accept PO. Alternate solids and liquids. monitor SPo2, patients breath work, and s/s of aspiration. Discontinue PO w/ symptoms suggestive of aspiration. Aspiration precautions include strict oral care and head of bed no lower than 30 degrees to reduce risk of microaspiration. HOUSE CALLS NURSE PRACTITIONER to re-assess tomorrow. Pt may benefit from MBSS when appropriate if s/s of dysphagia persist. Recommendations updated on patient's whiteboard. RN and MD notified via [employer]. Commercial Sewing Instructor Clinican/Clinical Fellow: No Supervisory Statement: I have reviewed and agree with the student/clinical fellow's documentation: N/A Speech Language Pathologist: Priti Concepcion M.A., CCC-HOUSE CALLS NURSE PRACTITIONER
--- NOTE | 2022-08-16 17:27 | PC.NURSE ---
pt attempted dinner with new diet. DRY CLEANING SUPERVISOR reports patient didn't want most of the food. Pt ate pudding and thickened juice, during which he was coughing and shaking. DRY CLEANING SUPERVISOR stopped with the feeding.
[2022-08-17 03:24] VITALS: BP 136/79; PULSE 86; RESP 20; TEMP 36.4; O2SAT 97
[2022-08-17] MEDS: Metoprolol Tartrate 5 MG/5 ML VIAL 2.5 MG IVPUSH ×2 (03:59→08:17)
[2022-08-17 06:46] LABS: Hematocrit 40.5 % (42.0-52.0); Hemoglobin 12.9 g/dl (14.0-18.0); Mean Corpuscular HGB Conc 31.9 g/dl (31.0-36.0); Mean Corpuscular Hemoglobin 24.8 pg (27.0-33.0); Mean Corpuscular Volume 77.7 fL (80.0-98.0); Mean Platelet Volume 10.3 fL (9.4-12.4); Platelet Count 179 X10*3/uL (160-400); Red Blood Count 5.21 X10*6/uL (4.60-5.80); Red Cell Distribution Width 17.2 % (11.0-16.0); White Blood Count 6.8 X10*3/uL (4.8-10.8)
[2022-08-17 07:03] LABS: Anion Gap 16 (12-20); Blood Urea Nitrogen 28 mg/dL (9-16); Calcium 10.1 mg/dL (8.4-10.2); Carbon Dioxide 31 mmol/L (22-29); Chloride 109 mmol/L (96-108); Estimated Glomerular Filt Rate > 60; Glucose Random 130 mg/dL (60-115); Magnesium 2.1 mg/dL (1.6-2.6); Potassium 2.9 mmol/L (3.3-5.1); Sodium 153 mmol/L (135-145)
[2022-08-17 07:07] LABS: B Type Natriuretic Peptide 234 pg/mL (<100)
[2022-08-17 08:00] VITALS: BP 149/81; PULSE 82; RESP 20; TEMP 37.8; O2SAT 95
[2022-08-17] MEDS: Furosemide 40 MG/4 ML VIAL IVPUSH (08:17)
[2022-08-17] MEDS: Apixaban 5 MG TABLET PO ×2 (09:20→21:58)
[2022-08-17] MEDS: Potassium Chloride Packet 20 MEQ PACKET 40 MEQ PO (09:20)
[2022-08-17] MEDS: Dextrose 5 % 1,000 ML 75 ML IVCONT ×2 (09:20→22:32)
--- NOTE | 2022-08-17 10:15 | P.PNCA_ITS ---
Subjective Subjective Date of Service: 08/17/22 Interval history: Seen examined at bedside. Telemetry reviewed he is in sinus rhythm. On pureed diet. Physical Exam Vital Signs: Last Vital Signs Temp 100.0 F 08/17/22 08:00 Pulse 82 08/17/22 08:00 Resp 20 08/17/22 08:00 BP 149/81 H 08/17/22 08:00 Pulse Ox 95 08/17/22 08:00 O2 Del Method Oxymask 08/17/22 08:00 O2 Flow Rate 6 08/17/22 08:00 FiO2 40 08/16/22 11:07 BMI result Body Mass Index 26.0 GENERAL APPEARANCE: in no acute distress, on supplemental oxygen. NECK: no carotid bruit, no jugular venous distention. SKIN: no suspicious lesions, warm and dry. HEART: no murmurs, regular rate and rhythm. LUNGS: clear to auscultation bilaterally. ABDOMEN: soft, nontender. EXTREMITIES: no edema. PERIPHERAL PULSES: equal. NEUROLOGIC: Right-sided hemiparesis. Objective Labs and Meds 08/17/22 06:32 08/17/22 06:32 Lab results: Laboratory Results - last 24 hr 08/17/22 08/17/22 08/17/22 06:32 06:32 06:32 WBC 6.8 RBC 5.21 Hgb 12.9 L Hct 40.5 L MCV 77.7 L MCH 24.8 L MCHC 31.9 RDW 17.2 H Plt Count 179 MPV 10.3 Absolute Nucleated RBC 0.000 Nucleated RBC % (auto) 0.0 Sodium 153 H Potassium 2.9 L Chloride 109 H Carbon Dioxide 31 H Anion Gap 16 BUN 28 H Creatinine 0.87 Estim Creat Clear Calc 78.0 Estimated GFR > 60 Random Glucose 130 H Calcium 10.1 D Magnesium 2.1 B-Natriuretic Peptide 234 H Progress Note: A&P Assessment and plan (1) Paroxysmal atrial fibrillation with RVR: Status: Acute Plan 72-year-old gentleman with previous CVA who has background of aspiration pneumon itis. He is presenting again with aspiration pneumonia and UTI. He was noticed to be in AFib with RVR which was transient and he has reverted back to sinus rhythm at this point. He is on anticoagulation for atrial fibrillation. Continue low-dose metoprolol. He is not in heart failure and can be dosed Lasix as needed. Because he is going to be on apixaban I think Plavix can be stopped. His trigger for atrial fibrillation is aspiration and unfortunately this may happen again. He has not been very compliant with diet at home. Signing off. Thank you for allowing me to participate in the care of your patient. Please feel free to contact me if you have any questions. Time Spent With Patient Time: Total time managing care of this patient today ____ minutes. Progress Note: Quality Stroke Does the patient have a stroke diagnosis?: No Procedures Date of Service Date of Service: 08/17/22
--- NOTE | 2022-08-17 10:18 | MHC.SL.SWA ---
Speech Pathologist Impression: Risk of Aspiration Due to: Dysphasia Diet Status: Recommend patient continue on current diet of [place] Thick Liquids and Puree (NDD1) with pills crushed in Puree (no change at this time). Patient requires 1-1 assistance during meal, can feed self if container is held for him, and can sip from cup with independence if supervised. Continue to monitor for clinical signs of aspiration when patient is eating, discontinue if patient is coughing associated with swallow, has increased SOB or audible upper airway congestion. Liquid Consistency and Strategies for Safe Swallow: Liquid Intake Recommendation: [place] Thick Liquid Intake Strategies: Small Sips No Straws Solid Food Consistency: Dietary Recommendations: Pureed (NDD1) Additional Modifications to Solid Foods: Oral Medication Intake: Crushed with Puree Please contact the pharmacy regarding appropriate crushable or liquid drug formulations that are available whenever modified delivery is recommended. Compensatory Strategies and Precautions to be Taken for Safe Swallow: Sitting Upright (90 deg) No Straw Liquids from Cup Small Bites and Sips Alternate Liquids/Solids Rate of Ingestion Change Oral Check Supervision While Eating and Drinking for Safe Swallow: Total Assistance (1:1) Foods to Avoid: Swallowing Recommended Treatments: Compens. Strategy Educat. Recommendation for Speech: Inpatient Speech Therapy Comment: Patient was awake and alert, sitting up in bed, on oxymask this morning. HOME FURNISHINGS SALES REPRESENTATIVE reported that he ate some of his Breakfast, but didn't like the taste. While talking to the HOME FURNISHINGS SALES REPRESENTATIVE who was removing tray, Patient began signalling that he wanted more by pointing to the tray then to the bedside table. Patient indicated he wanted the Coffee on the tray and then with a series of gestures and Y/N questions, PROFESSOR OF THEOLOGY prepared coffee to his preference, with patient then taking the cup and sipping coffee independently. Patient then signaled that he wanted the apple sauce on tray, and with PROFESSOR OF THEOLOGY holding cup, he was able to independently scoop bites of applesauce with left hand. Patient evidenced a tongue pumping pattern of oral movement to propel bolus, timely swallow with reduced laryngeal elevation. Patient consumed apple sauce, then asked for more from the RN who was in the room. Apple Sauce was used for specific medication, with PROFESSOR OF THEOLOGY again assisting by holding cup while patient independently scooped food. PROFESSOR OF THEOLOGY encouraged alternating with sips of NT juice, which assisted with clearing mild residual noted in mouth. After consuming a cup and a half of apple sauce, with some sips of either NT Juice or Coffee, patient was noted to cough vigorously, then wipe mouth on towel, removing residual food from mouth and spittle. During session, patient was offered options of advanced texture for po trial (chicken salad or softened cracker), however patient refused trials. Recommend patient continue on current diet of [place] Thick Liquids and Puree (NDD1) with pills crushed in Puree (no change at this time). Frequency/Duration: Date Range for Service Req: Timeline to reassess: Auto Clutch Rebuilder Clinican/Clinical Fellow: No Supervisory Statement: I have reviewed and agree with the student/clinical fellow's documentation: N/A Speech Language Pathologist: Yomaira Cifuentes M.A., CCC-PROFESSOR OF THEOLOGY
--- NOTE | 2022-08-17 10:24 | P.PNIM_ITS ---
Subjective Subjective Date of Service: 08/17/22 Interval History: awake, alert but nonverbal due to hx CVA eating purees + nectars off HFNC Review of Systems Review of Systems: Yes Unobtainable due to mental status Physical Exam Vital Signs: Vital Signs: Last Vital Signs Temp 100.0 F 08/17/22 08:00 Pulse 82 08/17/22 08:00 Resp 20 08/17/22 08:00 BP 149/81 H 08/17/22 08:00 Pulse Ox 95 08/17/22 08:00 O2 Del Method Oxymask 08/17/22 08:00 O2 Flow Rate 6 08/17/22 08:00 FiO2 40 08/16/22 11:07 BMI result Body Mass Index 26.0 Gen: NAD HEENT: sclera anicteric, moist mucus membranes Neck: supple Lungs: diminished Heart: regular rate + rhythm, no murmurs Abd: soft, non-tender, non-distended Ext: no edema Skin: warm/well-perfused Neuro: alert, nonverbal, R hemiparesis Psych: appropriate affect Objective Data Active Medications Acetaminophen (Acetaminophen Supp 650 Mg Supp.Rect) 650 mg AL Q6H PRN PRN Reason: fever Last Admin: 08/15/22 05:44 Dose: 650 mg Documented By: AJAY Albuterol/Ipratropium (Albuterol/Iprat 2.5/0.5mg 3 Ml Ampul.Neb) 3 ml INHALE RQ4H WHILE AWAKE PRN PRN Reason: dyspnea/wheezing Apixaban (Apixaban 5 Mg Tablet) 5 mg PO BID [facility] Last Admin: 08/17/22 09:20 Dose: 5 mg Documented By: YASMINE Artificial Tears (Artificial Tears 15 Ml Drops) 1 drop EYE-BOTH Q4H PRN PRN Reason: Dry Eyes Furosemide (Furosemide 40 Mg Tablet) 40 mg PO DAILY [facility]; Protocol Cefepime HCl 1 gm/ Sodium (Chloride) 50 mls @ 100 mls/hr IV Q12H [facility] Last Infusion: 08/17/22 00:15 Dose: 0 mls/hr Documented By: MEY Dextrose (D5w) 1,000 mls @ 75 mls/hr IVCONT .[id number] [facility] Stop: 08/18/22 11:39 Last Admin: 08/17/22 09:20 Dose: 75 mls/hr Documented By: YASMINE Metoprolol Tartrate (Metoprolol Tartrate 25 Mg Tablet) 25 mg PO BID [facility]; Protocol Last Admin: 08/17/22 09:15 Dose: Not Given Documented By: YASMINE Non-Admin Reason: Physician Held Med Pharmacy Consult (Consult Rx Perform Med Rec) 1 each MISCELLANE ONCE PRN PRN Reason: Consult order Labs 08/17/22 06:32 08/17/22 06:32 Labs: Laboratory Results - last 24 hr 08/17/22 08/17/22 08/17/22 06:32 06:32 06:32 MCV 77.7 L MCH 24.8 L MCHC 31.9 RDW 17.2 H Plt Count 179 MPV 10.3 Absolute Nucleated RBC 0.000 Nucleated RBC % (auto) 0.0 Anion Gap 16 Estim Creat Clear Calc 78.0 Estimated GFR > 60 Random Glucose 130 H Calcium 10.1 D Magnesium 2.1 B-Natriuretic Peptide 234 H TTE 08/15/22 - Technically limited study. ? - Hyperdynamic LV function.? - Valves not well visualized but doppler assessment appears to be normal.? 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 admitted to ICU 08/13/22 for brief pressor support for sepsis due to UTI weaned off pressors rapidly and stepped down to [facility] 08/14/22 UCx growing E coli, BCx negative developed hypoxic respiratory failure likely due to acute/chronic aspiration as well as HF # acute hypoxic respiratory failure due to aspiration + HF - on Oxymask, wean as tolerated # acute HFpEF - now euvolemic, change to PO furosemide, change to PO metoprolol # paroxysmal AF - likely triggered by respiratory failure, resolved - change to PO metoprolol, change enoxaparin to apixaban - now NSR # septic shock - resolved, now hypertensive - treat urinary source [E coli I to quinolones] with cefepime d#05/26, should also cover aspiration PNA, trend PCT, BCx negative # aspiration pneumonia - ishan + anai, FIBERGLASS MACHINE OPERATOR following - per FIBERGLASS MACHINE OPERATOR, had MBSS 06/23/22 that showed aspiration and signed a form at his SNF stating he wished to continue drinking thin liquids and eating a regular diet despite knowing risks - pt has previously signed MOLST declining tube feeds # hx CVA - statin, d/c clopidogrel as starting apixaban # VTE ppx: apixaban # dispo: eventual return to SNF for LTC @ [facility] In my clinical judgment, the patient requires continued inpatient hospitalization for the following reasons: hypoxia, IV ABX Time Spent With Patient Time: Total time managing care of this patient today ___45_ minutes. Quality Stroke Does the patient have a stroke diagnosis?: No VTE Prior VTE?: No VTE Risk Level:: Medical - moderate - high VTE Device Contraindication: N/A - Device Ordered VTE Drug Contraindication: N/A - Med Ordered
[2022-08-17 11:05] VITALS: BP 151/81; PULSE 90; RESP 20; TEMP 37.9; O2SAT 94
[2022-08-17] MEDS: cefEPime HCl 1 GM in 0.9 % Sodium Chloride 50 ML IV ×2 (11:07→22:32)
[2022-08-17] MEDS: Potassium Chloride/H20 10 MEQ/100 ML PIGGYBACK 100 MEQ IV ×4 (11:12→14:27)
[2022-08-17 15:03] VITALS: BP 135/92; PULSE 78; RESP 14; TEMP 37; O2SAT 97
--- NOTE | 2022-08-17 17:04 | P.CDIM_ITS ---
PROVIDER RESPONSE TEXT: To clarify, the appropriate diagnosis supported by the clinical indicators: Hypernatremia QUERY TEXT: PHYSICIAN'S DOCUMENTATION REQUEST Date of Query: 08/16/2022 08:04 AM EDT Patient Name: Steven Hamilton Admit Date: 08/13/2022 Dear Inez Byers, A review of the medical record indicates additional documentation may be needed. Please review below and update the documentation accordingly. Clinical Indicators: LAB FINDINGS: sodium 147 H 151 H IV fluids Based on the above, is there a diagnosis that correlates with the lab findings: Hypernatremia Labs indicate a diagnosis of (please specify) Other Other (explain)Clinically unable to determine (explain)Thank you, Ines Dean, CCS, CDIS Use of terms such as suspected, likely, concern for, or probable (associated with a specific diagnosi s that is being evaluated, monitored, or treated as if it exists) are acceptable and can be coded in the inpatient se tting, when documented at the time of discharge. Please use your independent medical judgment in providing your response. THIS QUERY IS PART OF THE PERMANENT MEDICAL RECORD
--- NOTE | 2022-08-17 17:04 | P.CDIM_ITS ---
PROVIDER RESPONSE TEXT: To clarify, the appropriate diagnosis supported by the clinical indicators: Hypokalemia QUERY TEXT: PHYSICIAN'S DOCUMENTATION REQUEST Date of Query: 08/17/2022 09:12 AM EDT Patient Name: Steven Hamilton Admit Date: 08/13/2022 Dear Inez Byers, A review of the medical record indicates additional documentation may be needed. Please review below and update the documentation accordingly. Clinical Indicators: LAB FINDINGS: potassium 3.0 L 2.9 L Potassium chloride 40 meq PO once Based on the above, is there a diagnosis that correlates with the lab findings: Hypokalemia Labs indicate a diagnosis of (please specify) Other Other (explain)Clinically unable to determine (explain)Thank you, Ines Dean, CCS, CDIS Use of terms such as suspected, likely, concern for, or probable (associated with a specific diagnosi s that is being evaluated, monitored, or treated as if it exists) are acceptable and can be coded in the inpatient se tting, when documented at the time of discharge. Please use your independent medical judgment in providing your response. THIS QUERY IS PART OF THE PERMANENT MEDICAL RECORD
[2022-08-17 19:19] VITALS: BP 134/87; PULSE 93; RESP 14; TEMP 36.6; O2SAT 97
[2022-08-17] MEDS: Metoprolol Tartrate 25 MG TABLET PO (21:58)
[2022-08-17] MEDS: Atorvastatin Calcium 20 MG TABLET PO (21:58)
[2022-08-18] VITALS (7 sets, daily range): BP systolic 118–140; BP diastolic 69–80; PULSE 76–87; RESP 16–20; TEMP 36.2–37.1; O2SAT 92–99
[2022-08-18 06:15] LABS: B Type Natriuretic Peptide 84 pg/mL (<100)
[2022-08-18 06:16] LABS: Anion Gap 14 (12-20); Blood Urea Nitrogen 26 mg/dL (9-16); Calcium 9.3 mg/dL (8.4-10.2); Carbon Dioxide 31 mmol/L (22-29); Chloride 105 mmol/L (96-108); Creatinine Clr Calc Pharmacy 74.6; Estimated Glomerular Filt Rate > 60; Glucose Random 130 mg/dL (60-115); Potassium 3.1 mmol/L (3.3-5.1); Sodium 147 mmol/L (135-145)
[2022-08-18 06:31] LABS: Procalcitonin 0.66 ng/mL
[2022-08-18] MEDS: Potassium Chloride Packet 20 MEQ PACKET 40 MEQ PO (08:50)
[2022-08-18] MEDS: Metoprolol Tartrate 25 MG TABLET PO ×2 (08:50→21:14)
[2022-08-18] MEDS: Apixaban 5 MG TABLET PO ×2 (08:50→21:13)
--- NOTE | 2022-08-18 10:30 | MHC.CM.PN ---
Per ROUNDS discussion, Patient needs VIDEO ENGINEER eval and O2 is being weaned. Patient is a LTC Resident at [facility]. CM will follow.
--- NOTE | 2022-08-18 10:47 | HO.PM.IMPN ---
Subjective Subjective Date of Service: 08/18/22 Interval History: Seen and evaluated this morning Laying comfortable in his bed still on O2 supplement Benavidez in place denies any fever or chills no other overnight events Review of Systems Review of Systems: Yes all other systems are reviewed and are negative Physical Exam Vital Signs: Vital Signs: Last Vital Signs Temp 97.9 F 08/18/22 08:00 Pulse 87 08/18/22 08:00 Resp 18 08/18/22 08:00 BP 124/78 08/18/22 08:00 Pulse Ox 99 08/18/22 08:00 O2 Del Method Oxymask 08/18/22 08:00 O2 Flow Rate 7 08/18/22 04:00 FiO2 40 08/16/22 11:07 BMI result Body Mass Index 26.0 Const: Other: Constitutional : Awake, interactive, looked deconditioned physically Neck : Normal inspection, Supple Cardiovascular : RRR, no JVP, no lower extremity edema Respiratory : good bilateral air entry, basal fine crackles, no wheezes or rhonchi Gastrointestinal: soft, lax, Normal bowel sounds, Non tender Skin : Warm, Dry Neurological : Alert & oriented , No focal deficit Objective Data Active Medications Acetaminophen (Acetaminophen Supp 650 Mg Supp.Rect) 650 mg LA Q6H PRN PRN Reason: fever Last Admin: 08/15/22 05:44 Dose: 650 mg Documented By: AJAY Albuterol/Ipratropium (Albuterol/Iprat 2.5/0.5mg 3 Ml Ampul.Neb) 3 ml INHALE RQ4H WHILE AWAKE PRN PRN Reason: dyspnea/wheezing Apixaban (Apixaban 5 Mg Tablet) 5 mg PO BID [facility] Last Admin: 08/18/22 08:50 Dose: 5 mg Documented By: YASMINE Artificial Tears (Artificial Tears 15 Ml Drops) 1 drop EYE-BOTH Q4H PRN PRN Reason: Dry Eyes Atorvastatin Calcium (Atorvastatin Calcium 20 Mg Tablet) 20 mg PO BEDTIME [facility] Last Admin: 08/17/22 21:58 Dose: 20 mg Documented By: MEY Furosemide (Furosemide 40 Mg Tablet) 40 mg PO DAILY [facility]; Protocol Cefepime HCl 1 gm/ Sodium (Chloride) 50 mls @ 100 mls/hr IV Q12H [facility] Last Infusion: 08/17/22 23:05 Dose: 0 mls/hr Documented By: MEY Dextrose (D5w) 1,000 mls @ 75 mls/hr IVCONT .[id number] [facility] Stop: 08/18/22 11:39 Last Admin: 08/17/22 22:32 Dose: 75 mls/hr Documented By: MEY Metoprolol Tartrate (Metoprolol Tartrate 25 Mg Tablet) 25 mg PO BID [facility]; Protocol Last Admin: 08/18/22 08:50 Dose: 25 mg Documented By: YASMINE Pharmacy Consult (Consult Rx Perform Med Rec) 1 each MISCELLANE ONCE PRN PRN Reason: Consult order Labs 08/17/22 06:32 08/18/22 05:41 Labs: Laboratory Results - last 24 hr 08/18/22 08/18/22 05:41 05:41 Anion Gap 14 Estim Creat Clear Calc 74.6 Estimated GFR > 60 Random Glucose 130 H Calcium 9.3 D Magnesium 2.0 B-Natriuretic Peptide 84 Procalcitonin 0.66 Assessment and Plan (1) Paroxysmal atrial fibrillation with RVR: Status: Acute (2) Septic shock: Status: Acute (3) Aspiration pneumonitis: Status: Acute (4) UTI (urinary tract infection): Status: Acute Plan 72yo M LTC resident at [facility] with 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 stepped down to [facility] 08/14/22 as UCx growing E coli, BCx negative. developed hypoxic respiratory failure likely due to acute/chronic aspiration as well as HF # acute hypoxic respiratory failure due to aspiration + HF on Oxymask, wean as tolerated MBSS 06/23/22 that showed aspiration and signed a form at his SNF stating he wished to continue drinking thin liquids and eating a regular diet despite knowing risks no on purees + nectars, PATTERN CHART WRITER following PATTERN CHART WRITER following # Acute hypernatremia trending down Continue D5W follow BMP # acute HFpEF now euvolemic Hold PO furosemide PO metoprolol # paroxysmal AF likely triggered by respiratory failure, resolved change to PO metoprolol, change enoxaparin to apixaban now NSR # septic shock resolved, now hypertensive treat urinary source [E coli I to quinolones] with cefepime d#07/29, should also cover aspiration PNA, trend PCT, BCx negative # hx CVA statin, d/c clopidogrel as starting apixaban # VTE ppx: apixaban # dispo: eventual return to SNF for LTC @ [facility] In my clinical judgment, the patient requires continued inpatient hospitalization for the following reasons: hypoxia, IV ABX Time Spent With Patient Time: Total time managing care of this patient today ____ minutes. Quality Stroke Does the patient have a stroke diagnosis?: No VTE Prior VTE?: No VTE Risk Level:: Medical - moderate - high VTE Device Contraindication: N/A - Device Ordered VTE Drug Contraindication: N/A - Med Ordered
[2022-08-18] MEDS: cefEPime HCl 1 GM in 0.9 % Sodium Chloride 50 ML IV (12:08)
[2022-08-18] MEDS: Artificial Tears 15 ML DROPS 1 DROP EYE-BOTH (12:14)
[2022-08-18 13:47] LABS: Anion Gap 13 (12-20); Blood Urea Nitrogen 24 mg/dL (9-16); Calcium 9.3 mg/dL (8.4-10.2); Carbon Dioxide 33 mmol/L (22-29); Chloride 104 mmol/L (96-108); Creatinine Clr Calc Pharmacy 77.1; Estimated Glomerular Filt Rate > 60; Glucose Random 102 mg/dL (60-115); Potassium 3.6 mmol/L (3.3-5.1); Sodium 146 mmol/L (135-145)
--- NOTE | 2022-08-18 13:57 | MHC.SLORD ---
Speech Language Pathology Order Status: RN reported pt is tolerating modified diet. Pt consumed thickened liquids from his breakfast tray without any difficulty this morning. FREEZER WORKER visited pt after discussion w/ RN. Pt sleeping, awoke momentarily, and refused offerings of PO. Pt currently on a pureed diet with nectar thick liquids. FREEZER WORKER will continue to follow.
[2022-08-18] MEDS: Atorvastatin Calcium 20 MG TABLET PO (21:14)
[2022-08-19] MEDS: cefEPime HCl 1 GM in 0.9 % Sodium Chloride 50 ML IV ×2 (00:09→11:37)
--- NOTE | 2022-08-19 01:36 | PC.NURSE ---
Pts ordonez was removed and he was due to void @1700. Pt has yet to void, bladder scanned him @ 19:40 and he had 236ml and again at 01:26 and pt had 364 ml. contacted and ordered a straight cath. Will continue to monitor.
[2022-08-19 03:11] VITALS: BP 115/79; PULSE 81; RESP 20; TEMP 36.7; O2SAT 97
[2022-08-19 06:00] VITALS: BMI 25.9
[2022-08-19 07:16] VITALS: BP 136/79; PULSE 80; RESP 20; TEMP 36.4; O2SAT 92
[2022-08-19 07:45] LABS: Hematocrit 41.4 % (42.0-52.0); Hemoglobin 12.7 g/dl (14.0-18.0); Mean Corpuscular HGB Conc 30.7 g/dl (31.0-36.0); Mean Corpuscular Hemoglobin 24.4 pg (27.0-33.0); Mean Corpuscular Volume 79.6 fL (80.0-98.0); Mean Platelet Volume 10.8 fL (9.4-12.4); Platelet Count 219 X10*3/uL (160-400); Red Cell Distribution Width 17.2 % (11.0-16.0); White Blood Count 7.7 X10*3/uL (4.8-10.8)
[2022-08-19 08:09] LABS: Anion Gap 11 (12-20); Blood Urea Nitrogen 23 mg/dL (9-16); Calcium 9.2 mg/dL (8.4-10.2); Carbon Dioxide 33 mmol/L (22-29); Chloride 105 mmol/L (96-108); Creatinine Clr Calc Pharmacy 83.8; Estimated Glomerular Filt Rate > 60; Glucose Random 102 mg/dL (60-115); Potassium 3.4 mmol/L (3.3-5.1); Sodium 146 mmol/L (135-145)
[2022-08-19] MEDS: Metoprolol Tartrate 25 MG TABLET PO (09:27)
[2022-08-19] MEDS: Apixaban 5 MG TABLET PO (09:27)
--- NOTE | 2022-08-19 10:14 | MHC.CM.PN ---
messaged this RNCM requesting a reach-out attempt to Pt's LTC SNF for a potential return today. This RNCM messaged Pt's previous LTC SNF where he is on a w/'s requested inquiry. Pending facility's response. CM to follow.
--- NOTE | 2022-08-19 10:52 | MHC.CM.PN ---
LTC SNF responded that 2:00pm okay for return for today. MD notified and transport booked for Pt's return.
[2022-08-19 11:17] VITALS: BP 124/76; PULSE 77; RESP 20; TEMP 37.5; O2SAT 95
--- NOTE | 2022-08-19 11:27 | PM.DS ---
DS: Providers Provider Date of Service: 08/19/22 Date of admission: 08/13/22 16:04 Primary care physician: Hamlet Nance MD Consults: 08/16/22 08:58 Consult to Cardiology Routine Consulting Provider: [facility] Reason for consultation: new onset AF DS: Diagnosis Discharge Diagnosis (1) Paroxysmal atrial fibrillation with RVR: Status: Acute (2) Septic shock: Status: Acute (3) Aspiration pneumonitis: Status: Acute (4) Acute hypernatremia: Status: Acute (5) Acute hypokalemia: Status: Acute (6) Acute UTI: Status: Acute (7) Lactic acidosis: Status: Acute DS: Summary Hospital Course Hospital Course: Admission note HPI 72-year-old long-term patient with old CVA and right hemiparesis and aphasia presents with hypotension and elevated lactate of 5.3 and a positive urinalysis for leukocyte esterase and nitrite and white cells and bacteria a so at the stents of bleed a urosepsis and was given 30 cc/kilos of IV fluid but blood pressure still in the 70s with needed to be started on Levophed and I had done a bedside echo showing normal left and right ventricular function no primary valve or pericardial disease ejection fraction certainly it at least 60% and the inferior vena cava is still relatively flat with good inspiratory response so we are starting maintenance fluids at 125 cc/hour along with the Levophed I reviewed the above abdominal and pelvic CT scan and I noted prominence to his spleen but also saw that he had diffuse bilateral ground-glass infiltrates starting in the perihilar area and then involving both lower lobes with what looks like significant bibasilar infiltrates and peribronchial thickening so the question is the end there was a lot of material in both right and left mainstem bronchi so I could I question the possibility of aspiration so it is not impossible that he has got an institutional node pneumonia colonized of course differently and and had an aspiration so in addition to the Zosyn that was given for urosepsis I gave him a dose of vancomycin and a dose of Levaquin to her de cover him for an institutional acquired pneumonia as either a contributor or potential source of his hypotension it does not appear that it is an early ARDS EKG shows sinus tachycardia but there are no acute ST-T changes and his lab work shows a markedly elevated white count with left shift along with the lactate which is now resolving after his fluid Hospital course The patient was admitted for treatment of septic shock on presentation secondary to Urosepsis. admitted to ICU and started on LEvofed with broad spectrum antibiotics with fair response as blood cultures remained negative but Urine culture grew E.Coli. Sepsis resolved and patient was taken off pressors and moved to medical floor. To continue Augmentin on discharge. Developed acute hypoxic respiratory failure due to aspiration pneumonia based on chest imaging. treated with antibiotics, O2 supplement. Had recent MBSS 06/23/22 that showed aspiration but the patient signed a form at his SNF stating he wished to continue drinking thin liquids and eating a regular diet despite knowing risks. Here he was seen by BURNER SHAFT team who recommended purees + nectar thick liquids with good tolerance. Treated for fluid overload - which he mainly received for hypotention - with IV lasix with good response. Sodium started to increase and he developed Acute hypernatremia that was treated with D5W. Lasix was decreased to 20 mg only on discharge as needed and to be followed closely to see if it is needed down the road or no. Sodium improved to 143. to repeat BMP as outpatient. Evaluated by cardiology for new onset atrial fibrillation with RvR which was transient and converted back to sinus with home dose metoprolol. Anticoagulated with Eliquis. pureed diet with nectar thick liquids. Aspiration precautions, head elevated to 45 degrees up to 2 hours after meal Continue antibiotic as prescribed Stop Plavix, start Eliquis Lasix 20 mg daily, to repeat blood test next week, hold for dehydration To follow with cardiology as outpatient Time Spent with Patient Time attestation: Total time managing care of this patient today ____ minutes. Discharge coordination time: Greater than 30 minutes Quality: Safe Use of Opioids Does Pt have an Active Cancer Diagnosis on the Problem List?: No Quality: Stroke Does the patient have a stroke diagnosis?: No Physical Exam Vital Signs: Vital Signs: Last Vital Signs Temp 99.5 F 08/19/22 11:17 Pulse 77 08/19/22 11:17 Resp 20 08/19/22 11:17 BP 124/76 08/19/22 11:17 Pulse Ox 95 08/19/22 11:17 O2 Del Method Room Air 08/19/22 11:17 O2 Flow Rate 6 08/19/22 03:11 FiO2 40 08/16/22 11:07 BMI result Body Mass Index 25.9 Const: Other: Constitutional : Awake, interactive, deconditioned physically Neck : Normal inspection, Supple Cardiovascular : RRR, no JVP, no lower extremity edema Respiratory : good bilateral air entry, basal fine crackles rt side, no wheezes or rhonchi Gastrointestinal: soft, lax, Normal bowel sounds, Non tender Skin : Warm, Dry Neurological : Alert & oriented , Right hemiparesis and aphasia DS: Data Data Completed and Pending Labs on day of discharge: Laboratory Results - last 24 hr 08/18/22 08/19/22 08/19/22 12:59 05:45 05:45 WBC 7.7 RBC 5.20 Hgb 12.7 L Hct 41.4 L MCV 79.6 L MCH 24.4 L MCHC 30.7 L RDW 17.2 H Plt Count 219 MPV 10.8 Absolute Nucleated RBC 0.000 Nucleated RBC % (auto) 0.0 Sodium 146 H 146 H Potassium 3.6 3.4 Chloride 104 105 Carbon Dioxide 33 H 33 H Anion Gap 13 11 L BUN 24 H 23 H Creatinine 0.88 0.78 Estim Creat Clear Calc 77.1 87.0 Estimated GFR > 60 > 60 Random Glucose 102 102 Calcium 9.3 9.2 08/19/22 05:45 WBC RBC Hgb Hct MCV MCH MCHC RDW Plt Count MPV Absolute Nucleated RBC Nucleated RBC % (auto) Sodium Potassium Chloride Carbon Dioxide Anion Gap BUN Creatinine 0.81 Estim Creat Clear Calc 83.8 Estimated GFR > 60 Random Glucose Calcium Imaging Chest x-ray: Radiologist's impression: ITS Impressions Venous Duplex 08/13/22 12:14 IMPRESSION: No DVT demonstrated in the right lower extremity. Chest X-Ray 08/13/22 12:50 IMPRESSION: Bronchial wall thickening may be infectious and/or inflammatory in etiology. Abdomen/Pelvis CT 08/13/22 14:17 IMPRESSION: 1. Cholelithiasis without cholecystitis. 2. Diverticulosis without diverticulitis. 3. Mild splenomegaly. 4. Bibasilar groundglass opacities, possibly pneumonia. 5. 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 Correlate with clinical history of ankylosing spondylitis. 6. Fatty replacement of gluteal muscles. 7. Small fat-containing umbilical hernia. Fleischner guidelines were followed. Chest X-Ray 08/15/22 05:15 IMPRESSION: New airspace opacities in the mid to lower right lung, which may be due to pneumonia versus asymmetric edema in the proper clinical setting. Small right pleural effusion suspected. Discharge Plan Discharge Anticipated Discharge Date/Time: 08/19/22 11:13 Patient Disposition: er [facility] Discharge Diagnosis: Aspiration pneumonia Heart failure exacerbation New onset atrial fibrillation Referrals: Hamlet Nance MD [Primary Care Provider] - 1 Week Discharge Medications: New Eliquis 5 mg Tablet 5 mg PO BID Qty: 60 0RF amoxicillin 400 mg/5 mL suspension for reconstitution 800 mg PO BID Qty: 100 0RF furosemide 20 mg tablet 20 mg PO NEEDED Qty: 30 0RF Continued acetaminophen 325 mg Tablet 650 mg PO Q4H PRN (Reason: Pain) atorvastatin 20 mg tablet 20 mg PO BEDTIME hydralazine 25 mg tablet 1 tab PO Q6H PRN (Reason: Increased Blood Pressure) Rx Instructions: for SBP >=170 and DBP >=105 amitriptyline 25 mg tablet 25 mg PO BEDTIME baclofen 10 mg tablet 30 mg PO TID nystatin [Nystop] 100,000 unit/gram powder 1 applic topical Q8H PRN (Reason: Rash) Rx Instructions: groin/buttocks oxycodone 5 mg tablet 1 tab PO Q6H PRN (Reason: Pain) Rx Instructions: moderate - severe pain Afrin (oxymetazoline) 0.05 % Mist 1 spray INTRANASAL Q12H PRN (Reason: Sinus Symptoms) metoprolol tartrate 25 mg tablet 25 mg PO BID lactulose 10 gram/15 mL solution 30 ml PO Q2D PRN (Reason: Constipation) pregabalin 100 mg capsule 100 mg PO TID melatonin 5 mg Tablet 5 mg PO BEDTIME albuterol sulfate 90 mcg/actuation Hfa Aerosol Inhaler 2 puff INHALATION Q4H PRN (Reason: Shortness Of Breath) ipratropium-albuterol 0.5 mg-3 mg(2.5 mg base)/3 mL Solution For Nebulization 3 ml INHALATION Q4H PRN (Reason: Shortness Of Breath) guaifenesin 100 mg/5 mL Liquid 200 mg PO Q4H PRN (Reason: Cold Symptoms) bethanechol chloride 25 mg Tablet 25 mg PO TID bisacodyl 10 mg Suppository 10 mg MS DAILY PRN (Reason: Constipation) Enema 19-7 gram/118 mL Enema 118 ml MS DAILY PRN (Reason: Constipation) gabapentin 100 mg capsule 100 mg PO BID sennosides [senna] 8.6 mg Tablet 8.6 mg PO DAILY PRN (Reason: Constipation) sennosides-docusate sodium [Senna Plus] 8.6-50 mg Tablet 1 tab-cap PO BID tamsulosin 0.4 mg Capsule 0.8 mg PO DAILY Saline Nasal 0.65 % Aerosol,[place] 1 spray INTRANASAL Q8H PRN (Reason: Dry Nasal Passages) Discontinued clopidogrel 75 mg tablet 75 mg PO DAILY Discharge Orders: Discharge Order (Routine); Ordered 08/19/22 Ordered By: Sera Chew Diet: Advance to usual diet Activity on Discharge: As tolerated Stand Alone Forms: Patient Portal Discharge page Other Ambulatory Orders: Basic Metabolic Panel (Routine) Timeframe: 5 Days Facility: [facility] - Location: Laboratory Ordered By: Sera Chew Care Plan Goals: Read below Health Concerns: Read below Plan of Treatment: Read below Assessment: You were admitted to ICU for septic shock as a result of urine and lung infections. responded well to IV antibiotics and weaned down on oxygen to room air. pureed diet with nectar thick liquids. Aspiration precautions, head elevated to 45 degrees up to 2 hours after meal Continue antibiotic as prescribed Stop Plavix, start Eliquis Lasix 20 mg daily, to repeat blood test next week, hold for dehydration To follow with cardiology as outpatient
== END 2022-08-19 13:57 | DRG 871 ==
LOC: HO.ED 15:05 → HO.EDOVER 16:11 → HO.ICU 16:47 → HO.EDOVER 08-14 09:12 → HO.ICU 08-14 10:34 → HO.IMC 08-14 13:33
PROVIDERS: Family Medicine; Internal Medicine; Internal Medicine Pulmonary Disease; Registered Nurse Community Health; Admitting Provider Internal Medicine Cardiovascular Disease; Emergency Provider Emergency Medicine; PCP Family Medicine; Visit Provider Student in an Organized Health Care Education/Training Program
DX: A41.50 Gram-negative sepsis, unspecified (principal); I50.31 Acute diastolic (congestive) heart failure; R65.21 Severe sepsis with septic shock; J69.0 Pneumonitis due to inhalation of food and vomit; J96.01 Acute respiratory failure with hypoxia; I69.351 Hemiplegia and hemiparesis following cerebral infarction affecting right dominant side; N39.0 Urinary tract infection, site not specified; E87.0 Hyperosmolality and hypernatremia; E78.2 Mixed hyperlipidemia; E87.6 Hypokalemia; B96.20 Unspecified Escherichia coli [E. coli] as the cause of diseases classified elsewhere; I48.0 Paroxysmal atrial fibrillation; Z20.822 Contact with and (suspected) exposure to COVID-19; I69.320 Aphasia following cerebral infarction; Z91.119 Patient's noncompliance with dietary regimen due to unspecified reason; Z79.01 Long term (current) use of anticoagulants; Z79.899 Other long term (current) drug therapy
CPT/HCPCS: 0241U; 36415; 36600; 71045; 74176; 80048; 80053; 80076; 80202; 81001; 82040; 82565; 82803; 83605; 83690; 83735; 83880; 84100; 84145; 84484; 85025; 85027; 87040; 87086; 87088; 87186; 92526; 92610; 93005; 93306; 93971; 99285; C1758; J0692; J1643; J1650; J1885; J1940; J1956; J2270; J2543; J3370; J3475; P9047; Q9957

== ENCOUNTER 2023-05-18 23:13 | Emergency (ER) | payer MEDICARE, MEDICAID, SELFPAY ==
--- NOTE | ~2023-05-18 | XR_ITS ---
EXAMINATION: XR CHEST CLINICAL INFORMATION: Central line placement COMPARISON: 05/18/2023 TECHNIQUE: Frontal view of the chest was obtained. FINDINGS: Right IJ central line tip lies in the region of the cavoatrial junction. Lung volumes are symmetric. Redemonstrated reticular nodular appearance in the right lung, without significant interval change. No evidence of pneumothorax or significant pleural effusion. The cardiomediastinal silhouette is stable. No acute osseous findings are seen. XR/XR chest 1V IMPRESSION: Right IJ central line tip in the region of the cavoatrial junction. Redemonstrated reticular nodular opacities in the right lung.
--- NOTE | ~2023-05-18 | XR_ITS ---
EXAMINATION: XR CHEST CLINICAL INFORMATION: Question pneumonia COMPARISON: 08/15/2022 TECHNIQUE: Frontal view of the chest was obtained. FINDINGS: Heart size upper limits of normal. The aorta is unfolded. There is increased reticular nodular markings present throughout the right lung however improved when compared to the 08/15/2022 study. Left basilar atelectasis is present. No large pleural effusions are seen. No focal consolidations. XR/XR chest 1V IMPRESSION: Improving reticular nodular markings in the right lung. No focal consolidations.
--- NOTE | 2023-05-18 23:19 | ECG_ITS ---
Test Reason : AMS Blood Pressure : / mmHG Vent. Rate : 130 BPM Atrial Rate : 130 BPM P-R Int : 122 ms QRS Dur : 070 ms QT Int : 312 ms P-R-T Axes : 055 025 027 degrees QTc Int : 459 ms Sinus tachycardia Otherwise normal ECG When compared with ECG of 15-AUG-2022 21:59, Sinus rhythm has replaced Atrial fibrillation Nonspecific T wave abnormality, improved in Anterior leads Referred By: Elmira Negrete Electronically Signed By:Adam Feldman
[2023-05-18 23:23] VITALS: BP 95/67; PULSE 131; O2SAT 88
--- NOTE | 2023-05-18 23:39 | ED_ITS ---
HPI - General Adult General Chief complaint: Dyspnea Stated complaint: SEPSIS ALERT Time Seen by Provider: 05/18/23 23:19 Source: EMS Mode of arrival: EMS Limitations: altered mental status History of Present Illness HPI narrative: Patient comes to the emergency room from [facility]. According to EMS, patient was diagnosed with pneumonia approximately 1 week ago, patient has been getting IM ceftriaxone for 3 days. According to the EMS crew, there was confusion in the jail regarding his code status. According to EMS, patient was on p.r.n. morphine and atropine for comfort measures, yet he was getting IM antibiotics. However, I spoke with the patient's daughter Xochitl who is his healthcare proxy. Xochitl states that patient was diagnosed with pneumonia week ago and has been having fever. Three days ago on 05/15/2023, patient sign a DNR, DNI, DNH molds form. However, Xochitl and the patient's family were concerned that patient has signed this new MOLST form when he was delirious with fever and was not understanding what he was signing. When Xochitl received a phone call from the nursing facility earlier today, she asked the staff to call 911 and to bring him to the hospital. I spoke with Xochitl, who states that she is aware that patient's long-time wishes are to not be intubated or resuscitated. Patient's daughter would like to honor her father's wishes, patient is now DNR DNI , but with full treatment otherwise. Patient is unresponsive, unable to give any history at all. Related Data Home Medications Medication Instructions Recorded Confirmed acetaminophen 325 mg tablet 650 mg PO Q4H PRN Pain 04/08/22 08/13/22 albuterol sulfate 90 mcg/actuation 2 puff inhalation Q4H PRN 04/08/22 08/13/22 aerosol inhaler Shortness Of Breath amitriptyline 25 mg tablet 25 mg PO BEDTIME 04/08/22 08/13/22 atorvastatin 20 mg tablet 20 mg PO BEDTIME 04/08/22 08/13/22 baclofen 10 mg tablet 30 mg PO TID 04/08/22 08/13/22 hydralazine 25 mg tablet 1 tab PO Q6H PRN Increased Blood 04/08/22 08/13/22 Pressure lactulose 10 gram/15 mL oral 30 ml PO Q2D PRN Constipation 04/08/22 08/13/22 solution melatonin 5 mg tablet 5 mg PO BEDTIME 04/08/22 08/13/22 metoprolol tartrate 25 mg tablet 25 mg PO BID 04/08/22 08/13/22 nystatin 100,000 unit/gram topical 1 applic topical Q8H PRN Rash 04/08/22 08/13/22 powder (Nystop) oxycodone 5 mg tablet 1 tab PO Q6H PRN Pain 04/08/22 08/13/22 oxymetazoline 0.05 % nasal mist 1 spray intranasal Q12H PRN Sinus 04/08/22 08/13/22 (Afrin (oxymetazoline)) Symptoms pregabalin 100 mg capsule 100 mg PO TID 04/08/22 08/13/22 bethanechol chloride 25 mg tablet 25 mg PO TID 08/13/22 08/13/22 bisacodyl 10 mg rectal suppository 10 mg UT DAILY PRN Constipation 08/13/22 08/13/22 gabapentin 100 mg capsule 100 mg PO BID 08/13/22 08/13/22 guaifenesin 100 mg/5 mL oral liquid 200 mg PO Q4H PRN Cold Symptoms 08/13/22 08/13/22 ipratropium 0.5 mg-albuterol 3 mg 3 ml inhalation Q4H PRN Shortness 08/13/22 08/13/22 (2.5 mg base)/3 mL nebulization Of Breath soln sennosides 8.6 mg tablet (senna) 8.6 mg PO DAILY PRN Constipation 08/13/22 08/13/22 sennosides 8.6 mg-docusate sodium 1 tab-cap PO BID 08/13/22 08/13/22 50 mg tablet (Senna Plus) sodium chloride 0.65 % nasal spray 1 spray intranasal Q8H PRN Dry 08/13/22 08/13/22 aerosol (Saline Nasal) Nasal Passages sodium phosphates 19 gram-7 118 ml UT DAILY PRN Constipation 08/13/22 08/13/22 gram/118 mL enema (Enema) tamsulosin 0.4 mg capsule 0.8 mg PO DAILY 08/13/22 08/13/22 Previous Rx's Medication Instructions Recorded amoxicillin 400 mg/5 mL oral 800 mg (10 mL) PO BID #100 mL 08/19/22 suspension apixaban 5 mg tablet (Eliquis) 5 mg PO BID #60 tabs 08/19/22 furosemide 20 mg tablet 20 mg PO NEEDED Fluid overload 08/19/22 #30 tabs Allergies Allergy/AdvReac Type Severity Reaction Status Date / Time No Known Allergies Allergy Verified 04/08/22 00:58 [No Known Allergies*] Review of Systems 2 Review of Systems: Yes Unobtainable due to mental condition [facility] Past Medical History Medical History Paroxysmal atrial fibrillation with RVR History of stroke Chronic indwelling Benavidez catheter Sebaceous cyst of scrotum Mixed hyperlipidemia CVA (cerebral vascular accident) Social History Social History Household Members: Unknown / Unable to assess Unable to assess alcohol history related to: Unknown Alcohol intake: former Patient Tobacco Use Status: Never used Tobacco Advance Directives: Yes Advance Directives on File: Yes Advance Directives Date on File: 08/21/22 service: No Current occupational status: disabled Physical Exam ED Vital Signs: Vital Signs - 24 hr 05/18/23 23:50 05/19/23 00:00 05/19/23 00:02 Temperature 101.8 F H Pulse Rate 127 H 123 H 118 H Respiratory Rate 19 Blood Pressure 89/65 L 88/61 L 94/54 L Pulse Oximetry 93 Oxygen Delivery Method Oxymask Oxygen Flow Rate 15 05/19/23 00:16 05/19/23 00:20 05/19/23 00:26 Temperature 99.3 F Pulse Rate 117 H 116 H 115 H Respiratory Rate 17 14 Blood Pressure 85/57 L 77/52 L 83/50 L Pulse Oximetry 91 L 93 Oxygen Delivery Method Oxymask Oxymask Oxygen Flow Rate 10 10 05/19/23 00:49 05/19/23 01:02 05/19/23 01:07 Temperature Pulse Rate 113 H 107 H 98 Respiratory Rate Blood Pressure 64/37 L 137/84 163/104 H Pulse Oximetry Oxygen Delivery Method Oxygen Flow Rate 05/19/23 01:07 05/19/23 01:12 05/19/23 01:17 Temperature Pulse Rate 98 113 H 106 H Respiratory Rate Blood Pressure 163/104 H 102/60 84/50 L Pulse Oximetry Oxygen Delivery Method Oxygen Flow Rate 05/19/23 01:17 05/19/23 01:49 05/19/23 01:52 Temperature 97.3 F 97.3 F Pulse Rate 106 H 103 H 102 H Respiratory Rate 13 14 Blood Pressure 84/50 L 111/74 115/70 Pulse Oximetry 95 95 Oxygen Delivery Method Oxymask Oxymask Oxygen Flow Rate 10 10 BMI result Body Mass Index 26.4 Const Other: Appearance: Unresponsive, minimally arousable Eyes: Pupils equal, round and reactive to light. ENT: Pharynx normal. Neck: Normal inspection. Neck supple. No lymph nodes noted. No crepitus CVS: Tachycardic, regular rhythm Pulses normal. Normal S1 and S2 Respiratory with a rales, no crackles, no wheezing, oxygen saturation 92% on 15 L Abdomen: Soft and nontender. No rigidity. No distention. Skin: Skin warm and dry. Normal skin color. Normal skin turgor. Extremities: No lower extremity edema. No Lacerations. No Rash Neuro: Unable to participating cranial nerve assessment Psych: Unresponsive Course Course Course Narrative: -as mentioned above, I spoke with the patient's healthcare proxy, patient's daughter Xochitl Hamilton. As of now, patient is DNR, DNI, all other treatment including CPAP, BiPAP, central lines are acceptable. -at this time, 23:52, sepsis alert has been called, patient's blood pressure is on the lower side, blood pressure systolic is 89 , 2nd blood pressure pending, all of patient's labs and imaging pending. Patient is prophylactically being treated with IV fluids and IV antibiotics. -respiratory therapy currently working with the patient to see which mask/high- flow would work best for the patient as we are not going to intubate per patient's family request -all labs and imaging pending, we know from report from [facility] that the patient has been diagnosed with pneumonia for at least a week Medications Administered Generic Name Dose Route Start Last Admin Trade Name Freq PRN Reason Stop Dose Admin Sodium Chloride 3,000 mls @ 999 mls/hr 05/18/23 23:49 05/19/23 01:54 Ns IVCONT 05/19/23 02:49 Infused .Q3H1M ONE Infusion Albumin Human 100 mls @ 100 mls/hr 05/19/23 01:00 05/19/23 00:59 Kedbumin 25 % IV 05/19/23 02:59 100 mls/hr Q1H JUAN Administration Norepinephrine Bitartrate 8 mg in 250 mls @ 0 mls/hr 05/19/23 01:15 05/19/23 01:17 Levophed IV 0.2 mcg/kg/min .Q0M JUAN 30.38 mls/hr Titration Protocol Per Protocol Discontinued Medications Generic Name Dose Route Start Last Admin Trade Name Aniyah PRN Reason Stop Dose Admin Acetaminophen 650 mg 05/18/23 23:39 05/18/23 23:54 Acetaminophen Supp 650 Mg Supp.Rect UT 05/18/23 23:40 650 mg ONCE ONE Administration Piperacillin Sod/Tazobactam 50 mls @ 100 mls/hr 05/18/23 23:49 05/19/23 00:21 Sod 3.375 gm/ Sodium Chloride IV 05/19/23 00:18 Infused ONCE ONE Infusion Procedures Central Line Placement Right IJ: Time Out Performed: Yes Patient Placed on Monitor/Pulse Ox: Yes MD Prep: mask, gown and gloves Central Line Prep: Chlorhexidine scrub Local Anesthetic: lidocaine 1% Amount of anesthesia used (mL): 5 Ultrasound Used for Placement: Yes Central Line Lumen Inserted: triple Post Procedure: sutured in place, good blood return, all ports aspirated, flushed, capped and sterile dressing applied Post Procedure X-Ray: tip of catheter in good position and no pneumothorax seen Patient Tolerated Procedure: well Complications: none Medical Decision Making Medical Decision Making MDM Narrative: -my interpretation of EKG: Normal sinus rhythm, heart rate 130, no ST segment depression or elevation, no T-wave inversion, QTC 459 -my interpretation of chest x-ray: Bilateral, Multilobar pneumonia -my interpretation of labs: Patient's white blood cell count 14.4, lactic 2.1, sodium 151, creatinine 1.85 which is above patient's baseline, glucose 338 , serology positive for influenza type A, urine is positive for UTI. Patient's urine toxicology positive for opiates, prior to coming to the emergency room, patient was being given morphine for comfort -patient's blood pressure has dropped to the mid 70s systolic. Peripheral Levophed was started. -patient has now a central line in the right IJ -patient's blood pressure 160 systolic, Levophed being titrated down. -I spoke with the patient's daughter regarding the patient's current condition. Patient needs ICU, we do not have ICU beds here in the [facility], neck step is to transfer the patient to [facility] -patient's daughter at this time would like to consult with the rest of the family. She has not sure at this time if we are going to proceed with ICU care and transfer out the state versus treating with IV fluids and antibiotics -01:13: At 01:00 hour after sepsis protocol was started, patient has not improved in mental status, current GCS is 8 (3- opens eyes to verbal command, 1- no verbal response, 4 - withdraws from pain). BP 102-60, HR 110, Temp 99.3, warm extremities) -I spoke with the patient's daughter who is the healthcare proxy, agreeable to have the patient transferred anywhere in [place]. -[facility] was able to get in touch with [facility] in [facility], patient accepted to the ICU by Dr. Castro -at this time, blood pressure 115/70, heart rate 102, temperature 97.3 degrees, respirations 14, saturating 95% on an OxyMask at 10 L. GCS 8 -I discussed the above-mentioned with patient's daughter, Xochitl Hamilton [phone], aware that the patient has been accepted to the ICU in [place], [place] Differential Diagnosis Differential Diagnoses: The differential diagnosis associated with the presentation includes (Sepsis pneumonia, UTI) Admission/Observation Consideration of admission/observation: Escalation of care including admission/observation considered (Patient needs ICU level of care) Consult Healthcare Provider Management of the patient was discussed with: [employer] Work[employer] Lab Data [facility] Lab Attestation statement: I reviewed the patient's lab results. 05/18/23 23:44 05/18/23 23:44 Labs: Lab Results 05/18/23 05/18/23 05/18/23 Range/Units 23:43 23:44 23:56 WBC 14.4 H (4.8-10.8) X10*3/uL RBC 5.48 (4.60-5.80) X10*6/uL Hgb 14.9 (14.0-18.0) g/dl Hct 46.9 (42.0-52.0) % MCV 85.6 (80.0-98.0) fL MCH 27.2 (27.0-33.0) pg MCHC 31.8 (31.0-36.0) g/dl RDW 17.2 H (11.0-16.0) % Plt Count 272 (160-400) X10*3/uL MPV 10.9 (9.4-12.4) fL Immature Gran % (Auto) 1.0 H (0.0-0.4) % Neut % (Auto) 84.4 H (45-73) % Lymph % (Auto) 8.9 L (20-40) % [place] % (Auto) 5.5 (2-11) % Eos % (Auto) 0.0 (0-4) % Baso % (Auto) 0.2 (0-2) % Lymph # (Auto) 1.3 (1.2-4.9) X10*3/uL [place] # (Auto) 0.8 (0.1-1.2) X10*3/uL Eos # (Auto) 0.0 (0.0-0.4) X10*3/uL Baso # (Auto) 0.0 (0.0-0.2) X10*3/uL Abs Immat Gran (auto) 0.15 H (0.00-0.03) X10*3/uL Absolute Neuts (auto) 12.2 H (2.0-8.3) x10*3/uL Absolute Nucleated RBC 0.000 (0.0-0.012) X10*3/uL Nucleated RBC % (auto) 0.0 (0.0-0.2) /100WBC PT 22.0 H (11.1-13.3) SEC INR 1.8 H (0.9-1.1) VBG pH 7.45 H (7.32-7.43) VBG pCO2 41 mmHg VBG pO2 156 mmHg VBG HCO3 29 H (22-26) mmol/L VBG O2 Saturation 100.0 % VBG Base Excess 5.0 mmol/L Sodium 151 H (135-145) mmol/L Potassium 4.6 (3.3-5.1) mmol/L Chloride 115 H (96-108) mmol/L Carbon Dioxide 25 (22-29) mmol/L Anion Gap 16 (12-20) BUN 26 H (9-16) mg/dL Creatinine 1.85 H (0.5-1.4) mg/dL Estim Creat Clear Calc 35.0 Estimated GFR 36 Random Glucose 338 H (60-115) mg/dL Lactic Acid 2.1 H* (0.5-2.0) mmol/L Calcium 8.8 (8.4-10.2) mg/dL Magnesium 2.2 (1.6-2.6) mg/dL Total Bilirubin 1.0 (0.0-1.0) mg/dL Direct Bilirubin 0.5 (0.0-0.5) mg/dL AST 14 (5-37) U/L ALT 6 (0-40) U/L Alkaline Phosphatase 95 (39-117) U/L Ammonia 48 (13-55) umol/L Troponin I High Sens 11.5 D (<3.5-35.0) ng/L B-Natriuretic Peptide 194 H (<100) pg/mL Total Protein 7.2 (6.5-8.0) g/dL Albumin 2.9 L (3.5-5.0) g/dL Lipase 18 (8-78) U/L Urine Color Urine Appearance Urine pH (5.0-9.0) Ur Specific Gifford (1.005-1.025) Urine Protein (Neg-Trace) mg/dL Urine Glucose (UA) (Negative) mg/dL Urine Ketones (Negative) mg/dL Urine Blood (Negative) Urine Nitrite (Negative) Ur Leukocyte Esterase (Negative) Urine RBC (0-2) /HPF Urine WBC (0-5) /HPF Ur Squamous Epith Cells (0-2) /HPF Urine Bacteria (None Seen) Hyaline Casts (0-2) /LPF Urine Opiates Screen (Not Detect) Urine Fentanyl Screen (Not Detect) Ur Barbiturates Screen (Not Detect) Ur Phencyclidine Scrn (Not Detect) Ur Amphetamines Screen (Not Detect) U Benzodiazepines Scrn (Not Detect) Urine Cocaine Screen (Not Detect) U Marijuana (THC) Screen (Not Detect) Influenza Type A (PCR) POSITIVE A (Negative) Influenza Type B (PCR) NEGATIVE (Negative) RSV RNA Qual (PCR) NEGATIVE (Negative) SARS-CoV-2 RNA (RT-PCR) NEGATIVE (Negative) 05/19/23 Range/Units 00:17 WBC (4.8-10.8) X10*3/uL RBC (4.60-5.80) X10*6/uL Hgb (14.0-18.0) g/dl Hct (42.0-52.0) % MCV (80.0-98.0) fL MCH (27.0-33.0) pg MCHC (31.0-36.0) g/dl RDW (11.0-16.0) % Plt Count (160-400) X10*3/uL MPV (9.4-12.4) fL Immature Gran % (Auto) (0.0-0.4) % Neut % (Auto) (45-73) % Lymph % (Auto) (20-40) % [place] % (Auto) (2-11) % Eos % (Auto) (0-4) % Baso % (Auto) (0-2) % Lymph # (Auto) (1.2-4.9) X10*3/uL [place] # (Auto) (0.1-1.2) X10*3/uL Eos # (Auto) (0.0-0.4) X10*3/uL Baso # (Auto) (0.0-0.2) X10*3/uL Abs Immat Gran (auto) (0.00-0.03) X10*3/uL Absolute Neuts (auto) (2.0-8.3) x10*3/uL Absolute Nucleated RBC (0.0-0.012) X10*3/uL Nucleated RBC % (auto) (0.0-0.2) /100WBC PT (11.1-13.3) SEC INR (0.9-1.1) VBG pH (7.32-7.43) VBG pCO2 mmHg VBG pO2 mmHg VBG HCO3 (22-26) mmol/L VBG O2 Saturation % VBG Base Excess mmol/L Sodium (135-145) mmol/L Potassium (3.3-5.1) mmol/L Chloride (96-108) mmol/L Carbon Dioxide (22-29) mmol/L Anion Gap (12-20) BUN (9-16) mg/dL Creatinine (0.5-1.4) mg/dL Estim Creat Clear Calc Estimated GFR Random Glucose (60-115) mg/dL Lactic Acid (0.5-2.0) mmol/L Calcium (8.4-10.2) mg/dL Magnesium (1.6-2.6) mg/dL Total Bilirubin (0.0-1.0) mg/dL Direct Bilirubin (0.0-0.5) mg/dL AST (5-37) U/L ALT (0-40) U/L Alkaline Phosphatase (39-117) U/L Ammonia (13-55) umol/L Troponin I High Sens (<3.5-35.0) ng/L B-Natriuretic Peptide (<100) pg/mL Total Protein (6.5-8.0) g/dL Albumin (3.5-5.0) g/dL Lipase (8-78) U/L Urine Color Dark Yellow Urine Appearance Cloudy Urine pH 5.5 (5.0-9.0) Ur Specific Gifford >= 1.030 H (1.005-1.025) Urine Protein 30 (1+) H (Neg-Trace) mg/dL Urine Glucose (UA) Negative (Negative) mg/dL Urine Ketones Trace (Negative) mg/dL Urine Blood Negative (Negative) Urine Nitrite Negative (Negative) Ur Leukocyte Esterase Small (1+) H (Negative) Urine RBC >20 H (0-2) /HPF Urine WBC 21-50 H (0-5) /HPF Ur Squamous Epith Cells 6-10 (0-2) /HPF Urine Bacteria None Seen (None Seen) Hyaline Casts 3-5 (0-2) /LPF Urine Opiates Screen POSITIVE H (Not Detect) Urine Fentanyl Screen Not Detected (Not Detect) Ur Barbiturates Screen Not Detected (Not Detect) Ur Phencyclidine Scrn Not Detected (Not Detect) Ur Amphetamines Screen Not Detected (Not Detect) U Benzodiazepines Scrn Not Detected (Not Detect) Urine Cocaine Screen Not Detected (Not Detect) U Marijuana (THC) Screen Not Detected (Not Detect) Influenza Type A (PCR) (Negative) Influenza Type B (PCR) (Negative) RSV RNA Qual (PCR) (Negative) SARS-CoV-2 RNA (RT-PCR) (Negative) Independent Interpretation I performed an independent interpretation of an: Plain X-Ray Radiology Impression Discussion of test interpretation with radiology: I have reviewed the radiologist's reading. Radiologist Impression: Heart size upper limits of normal. The aorta is unfolded. There is increased reticular nodular markings present throughout the right lung however improved when compared to the 08/15/2022 study. Left basilar atelectasis is present. No large pleural effusions are seen. No focal consolidations. XR/XR chest 1V IMPRESSION: Improving reticular nodular markings in the right lung. No focal consolidations Independent Historian Clinical information obtained from an independent historian. History obtained from or confirmed by: Other (Patient's daughter) Critical Care Time Critical Care Time Critical Care Time: Yes Total Critical Care Time: 90 Attestation: I have personally provided critical care time. Time includes review of lab data, radiology results, discussion with consultants, and monitoring for potential decompensation. Intervention performed as documented. Discharge Plan Discharge Clinical Impression: Septic shock, Acute hypernatremia, Acute UTI, Pneumonia, CHRIS (acute kidney injury), Influenza A Patient Disposition: [facility] Transfer Details: [facility], [place], [place]. Dr. Castro Prescriptions: No Action acetaminophen 325 mg Tablet 650 mg PO Q4H PRN (Reason: Pain) atorvastatin 20 mg tablet 20 mg PO BEDTIME hydralazine 25 mg tablet 1 tab PO Q6H PRN (Reason: Increased Blood Pressure) Rx Instructions: for SBP >=170 and DBP >=105 amitriptyline 25 mg tablet 25 mg PO BEDTIME baclofen 10 mg tablet 30 mg PO TID nystatin [Nystop] 100,000 unit/gram powder 1 applic topical Q8H PRN (Reason: Rash) Rx Instructions: groin/buttocks oxycodone 5 mg tablet 1 tab PO Q6H PRN (Reason: Pain) Rx Instructions: moderate - severe pain Afrin (oxymetazoline) 0.05 % Mist 1 spray INTRANASAL Q12H PRN (Reason: Sinus Symptoms) metoprolol tartrate 25 mg tablet 25 mg PO BID lactulose 10 gram/15 mL solution 30 ml PO Q2D PRN (Reason: Constipation) pregabalin 100 mg capsule 100 mg PO TID melatonin 5 mg Tablet 5 mg PO BEDTIME albuterol sulfate 90 mcg/actuation Hfa Aerosol Inhaler 2 puff INHALATION Q4H PRN (Reason: Shortness Of Breath) ipratropium-albuterol 0.5 mg-3 mg(2.5 mg base)/3 mL Solution For Nebulization 3 ml INHALATION Q4H PRN (Reason: Shortness Of Breath) guaifenesin 100 mg/5 mL Liquid 200 mg PO Q4H PRN (Reason: Cold Symptoms) bethanechol chloride 25 mg Tablet 25 mg PO TID bisacodyl 10 mg Suppository 10 mg UT DAILY PRN (Reason: Constipation) Enema 19-7 gram/118 mL Enema 118 ml UT DAILY PRN (Reason: Constipation) gabapentin 100 mg capsule 100 mg PO BID sennosides [senna] 8.6 mg Tablet 8.6 mg PO DAILY PRN (Reason: Constipation) sennosides-docusate sodium [Senna Plus] 8.6-50 mg Tablet 1 tab-cap PO BID tamsulosin 0.4 mg Capsule 0.8 mg PO DAILY Saline Nasal 0.65 % Aerosol,Milmine 1 spray INTRANASAL Q8H PRN (Reason: Dry Nasal Passages) Eliquis 5 mg Tablet 5 mg PO BID Qty: 60 0RF amoxicillin 400 mg/5 mL suspension for reconstitution 800 mg PO BID Qty: 100 0RF furosemide 20 mg tablet 20 mg PO NEEDED Qty: 30 0RF
[2023-05-18 23:43] VITALS: BMI 26.4
[2023-05-18 23:50] VITALS: BP 89/65; PULSE 127; RESP 19; TEMP 38.8; O2SAT 93
[2023-05-18] MEDS: 0.9 % Sodium Chloride 3,000 ML 999 ML IVCONT (23:53)
[2023-05-18] MEDS: Piperacillin Sodium/Tazobactam 3.375 GM in 0.9 % Sodium Chloride 50 ML IV (23:54)
[2023-05-18] MEDS: Acetaminophen Supp 650 MG SUPP.RECT PR (23:54)
[2023-05-18 23:58] LABS: Basophils Percent Auto 0.2 % (0-2); Hematocrit 46.9 % (42.0-52.0); Hemoglobin 14.9 g/dl (14.0-18.0); Imm Gran Abs Auto 0.15 X10*3/uL (0.00-0.03); Lymphocytes Absolute Auto 1.3 X10*3/uL (1.2-4.9); Lymphocytes Percent Auto 8.9 % (20-40); MANUAL DIFF FLAG NO; Mean Corpuscular HGB Conc 31.8 g/dl (31.0-36.0); Mean Corpuscular Hemoglobin 27.2 pg (27.0-33.0); Mean Corpuscular Volume 85.6 fL (80.0-98.0); Mean Platelet Volume 10.9 fL (9.4-12.4); Monocytes Absolute Auto 0.8 X10*3/uL (0.1-1.2); Monocytes Percent Auto 5.5 % (2-11); Neutrophils Absolute Auto 12.2 x10*3/uL (2.0-8.3); Neutrophils Percent Auto 84.4 % (45-73); Platelet Count 272 X10*3/uL (160-400); Red Blood Count 5.48 X10*6/uL (4.60-5.80); Red Cell Distribution Width 17.2 % (11.0-16.0); White Blood Count 14.4 X10*3/uL (4.8-10.8)
[2023-05-19] VITALS (15 sets, daily range): BP systolic 64–163; BP diastolic 37–104; PULSE 98–123; RESP 13–17; TEMP 36.3–37.4; O2SAT 91–95
[2023-05-19 00:03] LABS: Venous Blood Gas Refer to POC result
[2023-05-19 00:04] LABS: INTERNATIONAL NORM RATIO 1.8 (0.9-1.1)
[2023-05-19 00:04] LABS: VBG HCO3 29 mmol/L (22-26); VBG pCO2 41 mmHg; VBG pH 7.45 (7.32-7.43); VBG pO2 156 mmHg
[2023-05-19 00:08] LABS: Ammonia 48 umol/L (13-55)
[2023-05-19 00:17] LABS: Alanine Aminotransferase 6 U/L (0-40); Albumin Level 2.9 g/dL (3.5-5.0); Alkaline Phosphatase 95 U/L (39-117); Anion Gap 16 (12-20); Aspartate Amino Transferase 14 U/L (5-37); Bilirubin Direct 0.5 mg/dL (0.0-0.5); Blood Urea Nitrogen 26 mg/dL (9-16); Calcium 8.8 mg/dL (8.4-10.2); Carbon Dioxide 25 mmol/L (22-29); Chloride 115 mmol/L (96-108); Estimated Glomerular Filt Rate 36; Glucose Random 338 mg/dL (60-115); Lipase 18 U/L (8-78); Magnesium 2.2 mg/dL (1.6-2.6); Potassium 4.6 mmol/L (3.3-5.1); Sodium 151 mmol/L (135-145); Total Protein 7.2 g/dL (6.5-8.0)
[2023-05-19 00:22] LABS: Troponin-I High Sensitivity 11.5 ng/L (<3.5-35.0)
[2023-05-19 00:23] LABS: Appearance Urine Cloudy; Color Urine Dark Yellow; Glucose Urine UA Negative (Negative); Leukocyte Esterase Urine Small (1+) (Negative); Nitrite Urine Negative (Negative); PH 5.5 (5.0-9.0); Specific Gravity - Urine >= 1.030 (1.005-1.025); UMIC TRIGGER UACC YES; Urine Blood Negative (Negative); Urine Ketones Trace mg/dL (Negative); Urine Protein 30 (1+) mg/dL (Neg-Trace)
[2023-05-19 00:30] LABS: Amphetamine Screen Urine Not Detected (Not Detect); Barbiturates, Urine Not Detected (Not Detect); Benzodiazepines Screen Urine Not Detected (Not Detect); Cannabinoid Screen Urine Not Detected (Not Detect); Cocaine Screen Urine Not Detected (Not Detect); Fentanyl, urine Not Detected (Not Detect); Opiate Screen Urine POSITIVE (Not Detect); Phencyclidine Screen Urine Not Detected (Not Detect)
[2023-05-19 00:32] LABS: B Type Natriuretic Peptide 194 pg/mL (<100)
[2023-05-19 00:37] LABS: Influenza A PCR POSITIVE (Negative); Influenza B PCR NEGATIVE (Negative); Resp Syncy Virus RNA Qual PCR NEGATIVE (Negative); SARS COV2 PCR INHOUSE NEGATIVE (Negative)
[2023-05-19] MEDS: Norepinephrine Bitartrate/D5W 8 MG/250 ML PLAST..BAG 75.94 MG IV (00:49)
[2023-05-19 00:50] LABS: Bacteria Urine None Seen (None Seen); RBC Urine >20 /HPF (0-2); UACC Culture Trigger YES; WBC Urine 21-50 /HPF (0-5)
[2023-05-19 00:53] LABS: Lactic Acid 2.1 mmol/L (0.5-2.0)
--- NOTE | 2023-05-19 00:54 | PC.NURSE ---
Central line placement done by MD with no complications. Pt tolerated well.
[2023-05-19] MEDS: Albumin Human 25 % 100 ML IV ×2 (00:59→02:34)
--- NOTE | 2023-05-19 01:22 | PC.NURSE ---
Pt bp 64/37. Levophed started at 0049 at 0.5mcg/kg/min per Dr Negrete verbal order. BP at 0102 137/84 HR 107; Levephed remained at 0.5mcg/kg/min BP at 0107 163/104 HR 98; Levophed decreased to 0.1mcg/kg/min per Dr Negrete verbal order BP at 0117 84/50 HR 106; Levophed increased to 0.2mch/kg/min BP at 0126 113/79 HR 103; Levophed running at 0.2mcg/kg/min; Pt tolerating it well
[2023-05-19 01:53] LABS: Reflex Lactate? Lactic Acid Added
[2023-05-19 02:50] LABS: ~Lactic Acid-LAB USE ONLY 1.3 mmol/L (0.5-2.0)
--- NOTE | 2023-05-19 03:14 | PC.NURSE ---
Nursing report given to TAMIKA Gould at [facility] as pt is being transferred to their ICU unit. Pts family is aware.
== END 2023-05-19 03:18 | disposition short-term general hospital (02) ==
PROVIDERS: Emergency Provider Emergency Medicine; PCP Family Medicine
DX: A41.9 Sepsis, unspecified organism (principal); J10.00 Influenza due to other identified influenza virus with unspecified type of pneumonia; R65.21 Severe sepsis with septic shock; N17.9 Acute kidney failure, unspecified; N39.0 Urinary tract infection, site not specified; E87.0 Hyperosmolality and hypernatremia; I48.0 Paroxysmal atrial fibrillation; Z86.73 Personal history of transient ischemic attack (TIA), and cerebral infarction without residual deficits; Z66 Do not resuscitate; Z11.52 Encounter for screening for COVID-19; Z20.828 Contact with and (suspected) exposure to other viral communicable diseases
CPT/HCPCS: 0241U; 36415; 36556; 71045; 80048; 80076; 80307; 81001; 82140; 82803; 83605; 83690; 83735; 83880; 84484; 85025; 85610; 87040; 87086; 87147; 87205; 93005; 96361; 96365; 96367; 99285; J2543; P9047

== ENCOUNTER → 2023-05-18 23:19 | Outpatient (BNV) | payer MEDICARE, MEDICAID, SELFPAY | PROVIDERS: Emergency Provider Emergency Medicine; PCP Family Medicine; Visit Provider Internal Medicine Cardiovascular Disease | DX: R41.82 Altered mental status, unspecified (principal) | CPT/HCPCS: 93010 ==

== ENCOUNTER → 2024-01-07 11:22 | Outpatient (RCR) | payer MEDICARE, MEDICAID, SELFPAY ==
--- NOTE | 2022-05-25 12:32 | MHC.SP.ADU ---
Referring provider: Dr. Hamlet Nance Reason for Referral: Chronic Aphasia Type of Treatment: 89739 Evaluation Speech Sound Production WITH Language Date of Plan of Treatment: 05/22/22 Onset of Symptoms/Illness: 05/22/22 Date Treatment Started: 05/22/22 Medical Diagnosis: Aphasia (I69.120) Primary Speech Language Diagnosis: R47.01 Aphasia Secondary Speech Language Diagnosis: R13.10 Dysphagia History Pt recently admitted to this Hospital for a UTI and was discharged on 04/12/22 with diet recommendations for [place]-Thick Liquids which he has been dissatisfied with. His receiving paper work show that he was changed back to Regular Solids and Thin Liquids at his facility on 04/21/22. He is scheduled for an MBSS early next month. He had a stroke in 2014 resulting in right hemiparesis of his upper and lower extremities along with dysarthria, dysphagia, and aphasia. Medical History: Other: Additional Medical History includes; UTIs, Sebaceous cyst, Muscle weakness, Neuralgia and neuritis, GERD, Constipation, Depression, Insomnia, Malnutrition, and Hyperlipidemia Recent Hospitalizations: Yes Respiratory Needs: Room Air Patient Orientation: Unable to Assess Social History: Employment Status: Retired Highest level of education obtained: Unknown/Unable to report Current Living Situation: 24hr nursing care. Assistive Devices in use: Wheelchair Comment: Past Speech Language Therapy: Unknown. Other Therapies Seen in Current Calendar Year: Unknown Reported Speech, Language, Cognition difficulties: Understanding Reading Speaking Writing Patient Stated Goal of Speech-Language Therapy: Establish care plan. Assessment Speech Production: Aphasic: Nonfluent Dysarthric Paucity of Speech Slurred Clinical Impression: Impaired Tests of Speech & Lang Adults: WAB-R Clinical Impression: Impaired Observations: Steven participated in the Western Aphasia Battery - Revised (WAB-R), his results are as follows: Spontaneous Speech: - Information Content: 05/29 - Fluency, Grammatical Competence, and Paraphasias: 03/31 -- TOTAL: 20 Auditory Verbal Comprehension: A.) Yes/No Questions: 60 B.) Auditory Word Recognition: 60 C.) Sequential Commands: 40/80 -- TOTAL: 139/200 Repetition: -- TOTAL: 48/100 Naming and Word Finding: A.) Object Namin/60 B.) Word Fluency: 03/10 C.) Sentence Comprehension: 10/29 D.) Responsive Speech: 08/28 TOTAL: 33/100 Aphasia Quotient: 42.1 Aphasia Classification: Severe Broca's Aphasia Impressions and Recommendations Summary: Steven's performance on the WAB-R demonstrated a severe Broca's aphasia. Individuals with Broca?s aphasia have trouble speaking fluently but their comprehension can be relatively preserved. This type of aphasia is also known as non-fluent or expressive aphasia. Patients have difficulty producing grammatical sentences and their speech is limited mainly to short utterances of less than four words. Producing the right sounds or finding the right words is often a laborious process. Some persons have more difficulty using verbs than using nouns. A person with Broca?s aphasia may understand speech relatively well, particularly when the grammatical structure of the spoken language is simple. However they may have harder times understanding sentences with more complex grammatical construct. For example the sentence ?Mirlande gave Jamari balloons? may be easy to understand but ?The balloons were given to Jamari by Mirlande? may pose a challenge when interpreting the meaning of who gave the balloons to whom. This classification is consistent with the strength's and weaknesses Steven demonstrated during testing. He will benefit from provision of a care plan targeting his strengths in comprehension, single word naming, and sentence completion to overcome communication barriers posed by his relative weaknesses in spontaneous speech and fluency. It is recommended that he participate in a short course of Speech Therapy to establish a care plan that can be transferred to his prison staff. When asked if would like to participate he responded indicating yes. Daily Activities: Mild Interpersonal Interactions: None Education: None Employment: None Community: None Prognosis for Improvement: Fair Recommendation for Speech Therapy: Outpatient Speech Therapy v. Speech Therapy through Rehab Facility Frequency/Duration: 1 x week x 8 weeks Date Range for Service Requested: 05/25/22 - 07/25/22 Time to Reassess: PRN Enhanced Environmental Operator Goals: 1.) Steven will increase his use of spontaneous speech with caregiver support. 2.) Steven will name functional household items with decrease cue levels required. Short Term Goals: Goal # : 1.) Steven will finish cloze sentences with >80% accuracy and fading cues. Goal Status: New Goal Goal# : 2.) Steven will name bathroom and self-care items with >80% accuracy and upto x1 phonemic cue. Goal Status: New Goal Goal # : 3.) Cosaprilo will participate in an MBSS. Goal Status: New Goal Patient Education: Completed: Yes Patient/Caregiver Education: Described Results of Evaluation Patient expressed understanding of evaluation Patient agrees with goals and treatment plan Comments/Barriers to Learning: Transportation. Supervisor Painting Shipyard Clinican/Clinical Fellow: No Supervisory Statement: N/A Speech Language Pathologist: Xvaier Lopez M.A., CCC-LEGAL PROJECT MANAGER
== END | disposition home or self-care (01) ==
LOC: HO.SH 05-22 09:40
PROVIDERS: Visit Provider Family Medicine
DX: F80.1 Expressive language disorder (principal)
CPT/HCPCS: 92523